=== PATIENT | female | born 1980 | race Hispanic/Latino ===

== ENCOUNTER 2018-01-20 21:42 | Inpatient (IN) | payer OTHER ==
[2018-01-20] MEDS ORDERED: Morphine 4 MG/ML VIAL IV ONE (22:03)
[2018-01-20 22:46] LABS: BASO # 0.1 K/uL (0.0-0.2); EOS # 0.1 K/uL (0.0-0.7); EOS % 0.8 % (0.0-4.0); HEMOGLOBIN 13.6 g/dL (12.0-16.0); LYMPH % 57.5 % (20.0-40.0); MEAN CELL VOLUME 97.6 fl (81.0-99.0); MEAN CORPUSCULAR HEMOGLOBIN 33.2 pg (27.0-31.0); MEAN CORPUSCULAR HGB CONC 34.1 g/dL (33.0-37.0); MEAN PLATELET VOLUME 8.8 fl (7.2-11.7); MONO # 0.5 K/uL (0.0-0.8); MONO % 7.8 % (0.0-10.0); NEUT # 2.3 K/uL (1.8-7.0); NEUT % 32.9 % (50.0-75.0); NRBC % 0.1 % (0.0-0.0); RBC 4.1 Mil/uL (3.80-5.20); RED CELL DISTRIBUTION WIDTH 12.6 % (11.5-14.5); WHITE BLOOD COUNT 6.9 K/uL (4.8-10.8)
[2018-01-20 22:55] LABS: ALB/GLOB RATIO 1.6 (1.0-2.1); ALBUMIN 4.8 g/dL (3.5-5.0); ALT/SGPT 33 U/L (9-52); AST/SGOT 27 U/L (14-36); BLOOD UREA NITROGEN 18 mg/dl (7-17); CALCIUM 10.1 mg/dL (8.4-10.2); GFR NON-AFRICAN AMERICAN > 60
[2018-01-20 22:57] LABS: PROTHROMBIN TIME 11.4 Seconds (9.8-13.1)
[2018-01-20 22:59] LABS: PARTIAL THROMBOPLASTIN TIME 26.4 Seconds (25.6-37.1)
--- NOTE | 2018-01-20 23:02 | ED PDOC ---
Lower Extremity Pain/Injury Time Seen by Provider: 01/20/18 21:45 Chief Complaint (Nursing): Lower Extremity Problem/Injury Chief Complaint (Provider): Lower Extremity Problem/Injury History Per: Patient, EMS History/Exam Limitations: no limitations Onset/Duration Of Symptoms: Sudden Onset Current Symptoms Are (Timing): Still Present Additional Complaint(s): pt here after doing workout in gym and slipping on top of her angled R ankle and bearing weight and falling on R ankle. she suffered immediate pain. unable to ambulate. moaning in pain. Past Medical History Reviewed: Historical Data, Nursing Documentation, Vital Signs Vital Signs: Last Vital Signs Temp 98 F 01/20/18 21:45 Pulse 94 H 01/20/18 21:45 Resp 18 01/20/18 21:45 BP 123/63 01/20/18 21:45 Pulse Ox 100 01/20/18 21:45 - Medical History PMH: Hypothyroidism - Surgical History Surgical History: No Surg Hx - Family History Family History: States: Unknown Family Hx - Social History Current smoker - smoking cessation education provided: No Alcohol: None Drugs: Denies - Home Medications Home Medications: Ambulatory Orders Medication Instructions Recorded Levothyroxine [Synthroid] 100 mcg PO DAILY 01/21/18 - Allergies Allergies/Adverse Reactions: Allergies Allergy/AdvReac Type Severity Reaction Status Date / Time No Known Allergies Allergy Verified 01/20/18 21:45 Review of Systems ROS Statement: Except As Marked, All Systems Reviewed And Found Negative Musculoskeletal: Positive for: Foot Pain (right ankle with swelling) Physical Exam - Reviewed Nursing Documentation Reviewed: Yes Vital Signs Reviewed: Yes - Physical Exam Appears: Positive for: Uncomfortable, In Acute Distress (painful) Skin: Positive for: Normal Color Eye Exam: Positive for: Normal appearance Neck: Positive for: Normal Cardiovascular/Chest: Positive for: Regular Rate, Rhythm Respiratory: Positive for: Normal Breath Sounds Gastrointestinal/Abdominal: Positive for: Normal Exam Extremity: Positive for: Capillary Refill (less than 2 sec), Deformity (obvious to right lateral ankle), Swelling (right lateral and medial aspect of ankle), Other (neurovascularly intact, 2+ DP). Negative for: Normal ROM, Pedal Edema, Calf Tenderness Neurologic/Psych: Positive for: Alert, Oriented. Negative for: Motor/Sensory Deficits - Laboratory Results Result Diagrams: 01/20/18 22:39 01/20/18 22:39 - ECG O2 Sat by Pulse Oximetry: 100 (RA) Pulse Ox Interpretation: Normal Medical Decision Making Medical Decision Making: Initial Impression: Ankle pain s/p fall Initial Plan: * Labs * Morphine 4mg IV * XR ankle (right) * XR tibia/fibula (right) Time: 2209 --Patient declines Morphine when offered by provider. Toradol ordered instead. (states her last period was 4 days ago) podiatry called for likely fracture, waiting on xr Time: 2299 --Patient is signed out to Dr. Andrea, pending podiatry evaluation and dispo. Scribe Attestation: Documented by Reyna Nash, acting as a scribe for Gwen Salinas MD. Provider Scribe Attestation: All medical record entries made by the Scribe were at my direction and personally dictated by me. I have reviewed the chart and agree that the record accurately reflects my personal performance of the history, physical exam, medical decision making, and the department course for this patient. I have also personally directed, reviewed, and agree with the discharge instructions and disposition. Disposition - Clinical Impression Clinical Impression: Fracture of tibia and fibula - Patient ED Disposition Is Patient to be Admitted: Yes - Disposition Disposition: Transfer of Care Disposition Time: 23:00 Condition: FAIR Patient Signed Over To: Tati Andrea
[2018-01-20] MEDS ORDERED: Morphine 4 MG/ML VIAL ONE ×2 (23:41→23:59)
[2018-01-21] MEDS: Morphine 4 MG/ML VIAL IVP ONE ×3 (00:01→01:01)
[2018-01-21] MEDS ORDERED: Propofol 10 mg/ml Inj (20 ML) ONE (00:10)
[2018-01-21] MEDS ORDERED: Propofol 10 mg/ml Inj (20 ML) IV ONE (00:27)
--- NOTE | 2018-01-21 00:44 | ED PDOC ---
- Laboratory Results Result Diagrams: 01/20/18 22:39 01/20/18 22:39 - ECG O2 Sat by Pulse Oximetry: 97 (RA) Pulse Ox Interpretation: Normal Medical Decision Making Medical Decision Makin:00 --Care endorsed to this provider by Dr. Salinas pending podiatry consult. [address] Raúl High patient needs casting and admission for possible OR and observation for NV status. He requests procedural sedation for splinting. Podiatry resident will perform splinting. Scribe Attestation: Documented by Elizabeth Mitchell acting as a scribe for Tati Andrea MD Provider Scribe Attestation: All medical record entries made by the Scribe were at my direction and personally dictated by me. I have reviewed the chart and agree that the record accurately reflects my personal performance of the history, physical exam, medical decision making, and the department course for this patient. I have also personally directed, reviewed, and agree with the discharge instructions and disposition. Disposition Discussed With DrJohn: Alexx Garg Doctor Will See Patient In The: Hospital Counseled Patient/Family Regarding: Studies Performed, Diagnosis, Need For Followup - Clinical Impression Clinical Impression: Fracture of tibia and fibula - POA Present On Arrival: Falls Or Trauma - Disposition Disposition: Hospitalized as Observation Patient Disposition Time: 23:45 Condition: FAIR ED Procedural Sedation - Pre Anesthesia Assessment Chief Complaint: Lower Extremity Problem/Injury Last Known Meal: x 4 hours ago Past Medical History: Medications Reviewed, Allergies Reviewed, Record Review Previous Surgies: Reviewed Family History/Social History: Reviewed - Physical Exam/Review of Systems Vital Signs Reviewed: Yes - Pre-Procedure Airway Assessment History of difficult intubation or surgical airway(i.e trach: No Inability to extend neck:: No Mouth opening less than two finger breadth:: No Diagnosis of sleep apnea:: No Less than three finger breadth to hyoid bone:: No ASA Criteria: 1 - Healthy, normal. 2 - Mild systemic disease (No functional limitations, mildline obesity, DM withot complications, Hypertention). 3 - Severe systemic disease (Some functional limitation, stable angina, morbid obesity, controlled COPD/Asthma/CHF). 4 - Sever systemic disease constant threat to life (Unstable angina, active symptoms of COPD/Asthma, CHF/Hypertension. 5 - Moribund ASA Clarification: ASA I Mallampati (airway): Class I - Intra-Procedure (Medications) Medications Given: Discontinued Medications Ketorolac Tromethamine (Toradol) 30 mg IV ONCE ONE Stop: 01/20/18 22:06 Last Admin: 01/20/18 22:09 Dose: 30 mg eMAR Start Stop Document 01/20/18 22:09 TS (Rec: 01/20/18 22:09 TS [email or web address]) Intravenous Solution Start Date 01/20/18 Start Time 22:07 [facility] Pain Assessment Document 01/20/18 22:09 TS (Rec: 01/20/18 22:09 TS [email or web address]) Pain Reassessment Is this a pain reassessment? No Sleep Is patient sleeping during reassessment? No Presence of Pain Presence of Pain Yes Pain Scale Used [facility] Used Numeric Location Left, Right or Bilateral Right Upper or Lower Lower Pain Location Body Site Leg Re-Assess: [facility] Pain Reassessment Document 01/20/18 22:39 TS (Rec: 01/20/18 23:05 TS [email or web address]) Sleep Is patient sleeping during reassessment? No Pain Reassessment [facility] Pain not relieved and LIP/MD was No notified Morphine Sulfate (Morphine) 4 mg IV ONCE ONE Stop: 01/20/18 22:04 Last Admin: 01/20/18 22:09 Dose: Not Given Non-Admin Reason: Patient Refused Morphine Sulfate (Morphine) 4 mg IVP ONCE ONE Stop: 01/20/18 23:38 Last Admin: 01/20/18 23:41 Dose: 4 mg [facility] Pain Assessment Document 01/20/18 23:41 TS (Rec: 01/20/18 23:42 TS [email or web address]) Pain Reassessment Is this a pain reassessment? Yes Sleep Is patient sleeping during reassessment? No Presence of Pain Presence of Pain Yes Location Left, Right or Bilateral Right Upper or Lower Lower Pain Location Body Site Leg IVP Administration Document 01/20/18 23:41 TS (Rec: 01/20/18 23:42 TS [email or web address]) Charges for Administration # of IVP Administrations 1 Morphine Sulfate (Morphine) 4 mg IVP ONCE ONE Stop: 01/20/18 23:46 Last Admin: 01/21/18 00:40 Dose: Not Given Non-Admin Reason: plan of care change Propofol (Diprivan) 70 mg IV ONCE ONE Stop: 01/21/18 00:28 Last Admin: 01/21/18 00:33 Dose: 70 mg eMAR Start Stop Document 01/21/18 00:33 TS (Rec: 01/21/18 00:34 TS [id number]) Intravenous Solution Start Date 01/21/18 Start Time 00:35 Kevin Agitation Sedation Document 01/21/18 00:33 TS (Rec: 01/21/18 00:34 TS [email or web address]) Kevin Agitation Sedation Scale Kevin Agitation Sedation Scale Score 0 Alert and Calm: Spontaneously pays attention to critical care specialist Physician Pushed Medication: No - Post-Procedure Post Procedure Note: Deep sedation Procedure began at 00:31 and ended at 00:41 Post procedure: Vital signs are in patient's normal range, stable respiratory function. Airway patent. Cardiovascular/hydration status stable. Mental status returned to baseline. Pain control satisfactory. Patient denies nausea, vomiting and complaints. Time Out Process - Time Out Process Patient identification (MR# and name from ID Band): Yes Procedure verified: Yes Consent read aloud and agreed upon: Yes Correct Site/Side marked and visibe to team after prepping: Yes Implants, special equipment and x-rays available: Not Applicable Prophylactic antibiotic given (if applicable): Not Applicable Correct position: Yes Correct Team: Yes List all team members present: Zully All team members are in agreement: Yes
--- NOTE | 2018-01-21 01:03 | CP.PCM.CON ---
History of Present Illness - History of Present Illness History of Present Illness: Consult note for Dr. Metcalf 37 y/o female patient with PMHx of hypothyroidism was seen and evaluated for significant right lower extremity injury in the ED s/p fall at the gym. Patient states she was performing "shuttle runs" and landed on her right foot with her entire body weight over the right leg. Patient was brought over to the ED via ambulance. Patient was seen in the ED at bedside laying on her stomach, and patient reported the pain was 10/10 during evaluation. Patient had refused Morphine prior to evaluation Patient complained of numbness and tingling. PMHx: Hypothyroidism PSHx: wisdom teeth removal, melanoma removal, Allergies: NKDA, denied by patient Review of Systems - Review of Systems All systems: reviewed and no additional remarkable complaints except Review of Systems: denied N/V/F/SOB/CP Past Patient History - Past Social History Smoking Status: Never Smoked - ENDOCRINE/METABOLIC Hx Hypothyroidism: Yes - PSYCHIATRIC Hx Substance Use: No - SURGICAL HISTORY Hx Surgeries: Yes Other/Comment: wisdom teeth - ANESTHESIA Hx Anesthesia: Yes Hx Anesthesia Reactions: No Meds Allergies/Adverse Reactions: Allergies Allergy/AdvReac Type Severity Reaction Status Date / Time No Known Allergies Allergy Verified 01/20/18 21:45 Physical Exam - Constitutional Appears: Well, Non-toxic, In Acute Distress - Head Exam Head Exam: ATRAUMATIC, NORMOCEPHALIC - Extremities Exam Additional comments: Right Lower Extremity Exam VASC: DP and PT pulses 2/4, CFT less than 3 seconds, no change in TG (warm to ORTHO: deformity noted at the distal RLE, patient able to wiggle all digits, unable to assess further due to severe pain and guarding DERM: no open lesions, no skin breaks, ecchymosis noted to the anterior medial aspect at the site of obvious deformity NEURO: epicritic and protective sensations intact, equal when compared to contralateral LLE - Neurological Exam Neurological exam: Alert, Oriented x3 - Psychiatric Exam Psychiatric exam: Anxious, Normal Affect Results - Vital Signs Recent Vital Signs: Last Vital Signs Temp 98 F 01/20/18 21:45 Pulse 66 01/21/18 00:50 Resp 15 01/21/18 00:50 BP 151/75 H 01/21/18 00:50 Pulse Ox 97 01/21/18 01:00 - Labs Result Diagrams: 01/20/18 22:39 01/20/18 22:39 Labs: Laboratory Results - last 24 hr 01/20/18 01/20/18 01/20/18 22:39 22:39 22:39 WBC 6.9 RBC 4.10 Hgb 13.6 Hct 40.0 MCV 97.6 MCH 33.2 H MCHC 34.1 RDW 12.6 Plt Count 315 MPV 8.8 Neut % (Auto) 32.9 L Lymph % (Auto) 57.5 H [place] % (Auto) 7.8 Eos % (Auto) 0.8 Baso % (Auto) 1.0 Neut # (Auto) 2.3 Lymph # (Auto) 4.0 [place] # (Auto) 0.5 Eos # (Auto) 0.1 Baso # (Auto) 0.1 PT 11.4 INR 1.0 APTT 26.4 Sodium 137 Potassium 3.3 L Chloride 101 Carbon Dioxide 19 L Anion Gap 20 BUN 18 H Creatinine 0.8 Est GFR ( Amer) > 60 Est GFR (Non-Af Amer) > 60 Random Glucose 109 H Calcium 10.1 Total Bilirubin 0.5 AST 27 ALT 33 Alkaline Phosphatase 57 Total Protein 7.9 Albumin 4.8 Globulin 3.0 Albumin/Globulin Ratio 1.6 Assessment & Plan - Assessment and Plan (Free Text) Assessment: 37 y/o female patient was seen and evaluated in the ED for distal tib-fib fracture to the right lower extremity Plan: Patient was seen and evaluated in the ED Patient plan was discussed with Dr. Metcalf X-rays were ordered of the right tib-fib and right ankle- final read pending, fracture noted in the distal tib-fib, no break in skin noted CT ordered for further evaluation- final read pending Upon discussion with attending and patient, patient was given conscious sedation Consent was obtained for sedation and patient agreed to procedure with nurse witness Patient was transferred to her back, and RLE was then hung off the side of the bed, with the knee in 90 degrees Patient neuro-vascular status was thoroughly evaluated- and noted to be intact, no signs of compartment syndrome were suspected at this time Posterior splint and U-splints were applied with well-padding and patient tolerated well Patient RLE was then elevated with the ankle above the level of the heart Patient will be admitted, and Dr Metcalf will see patient in the morning Patient to be kept NPO at this time Patient re-evaluated at 3:39 on the peds floor- patient reports she is comfortable at this time, and denies any pain. Patient CFT slightly delayed. Patient DP pulse bounding, patient able to wiggle her toes, and reports neuro status intact when examined
[2018-01-21] MEDS ORDERED: Sodium Chloride 0.9% 1,000 ML IV STA (02:28)
[2018-01-21] MEDS ORDERED: Morphine 4 MG/ML VIAL ONE (02:28)
[2018-01-21] MEDS ORDERED: Iodixanol 320 MG/ML 100 ML BOTTLE IV ONE (05:25)
[2018-01-21] MEDS ORDERED: Sodium Chloride 0.9% 50 ML IV ONE (05:25)
--- NOTE | 2018-01-21 09:37 | RAD ---
Date of service: 01/20/2018 PROCEDURE: Right Ankle Radiographs. HISTORY: r ankle pain sp fall COMPARISON: None available. FINDINGS: BONES: A spiral fracture of the distal tibial diaphysis with 9 mm separation diastases of the distal fracture fragment ends is noted on the lateral view. No marked angulation deformity seen. A fibular spiral fracture nondisplaced is also noted at the diaphyseal metaphyseal junction. A well corticated 7 to 8 mm ossification projects over the inferior distal fibula-an developmental accessory ossificationscenter versus an old osseous avulsion are favored considerations. JOINTS: No significant appearing arthritis seen.. Disruption of the ankle mortise is suspect the lateral ankle mortise is asymmetrically increased in its superior inferior spacing compared to the medial aspect. The tibial oblique fracture lines which have some comminution extend down towards the syndesmotic ligamentous region. Talar dome intact grossly on this single frontal view of it SOFT TISSUES: Not significantly swollen OTHER FINDINGS: None. IMPRESSION: Multiple fractures tibia and fibula as detailed above. The distal tibial fracture ends are at least 9 mm. No florencia dislocation. However the lateral ankle mortise is believes disrupted as detailed above.
--- NOTE | 2018-01-21 09:39 | RAD ---
Date of service: 01/20/2018 PROCEDURE: Radiographs of the right tibia and fibula. HISTORY: r ankle pain and swellign sp fall COMPARISON: None available TECHNIQUE: Frontal and lateral views obtained. FINDINGS: BONES: The extensive mostly spiral type fractures of the distal tibial diaphysis and distal fibular diaphysis and metaphysis are renoted. The tibial fracture ends are distally approximately 9 mm. No angulation deformity is appreciated. JOINT SPACES: Unremarkable. OTHER FINDINGS: None. IMPRESSION: Distal tibial and fibular fractures as above.
--- NOTE | 2018-01-21 10:10 | CP.PCM.HP ---
History of Present Illness - History of Present Illness History of Present Illness: pt admitted for R tib/fib fx after runining at gym yesterday. fell ontop her own body weight. had reduction in ER w/ splint in place. distal pms intact. cap refill brisk. case d/c w/ ortho-elgazar. Present on Admission - Present on Admission Any Indicators Present on Admission: No Review of Systems - Musculoskeletal Musculoskeletal: As Per HPI Past Patient History - Past Medical History & Family History Past Medical History?: Yes - Past Social History Smoking Status: Never Smoked - CARDIAC Hx Cardiac Disorders: No - PULMONARY Hx Respiratory Disorders: No - NEUROLOGICAL Hx Neurological Disorder: No - HEENT Hx HEENT Problems: No - RENAL Hx Chronic Kidney Disease: No - ENDOCRINE/METABOLIC Hx Hypothyroidism: Yes - HEMATOLOGICAL/ONCOLOGICAL Hx Blood Disorders: No Hx AIDS: No Hx Human Immunodeficiency Virus (HIV): No - INTEGUMENTARY Hx Dermatological Problems: Yes (malignant melanoma) - MUSCULOSKELETAL/RHEUMATOLOGICAL Hx Musculoskeletal Disorders: No Hx Falls: No - GASTROINTESTINAL Hx Gastrointestinal Disorders: No - GENITOURINARY/GYNECOLOGICAL Hx Genitourinary Disorders: No - PSYCHIATRIC Hx Substance Use: No - SURGICAL HISTORY Hx Surgeries: Yes Other/Comment: wisdom teeth - ANESTHESIA Hx Anesthesia: Yes Hx Anesthesia Reactions: No Meds Allergies/Adverse Reactions: Allergies Allergy/AdvReac Type Severity Reaction Status Date / Time No Known Allergies Allergy Verified 01/20/18 21:45 Physical Exam - Constitutional Appears: Well, Non-toxic, No Acute Distress - Head Exam Head Exam: ATRAUMATIC, NORMAL INSPECTION, NORMOCEPHALIC - Eye Exam Eye Exam: EOMI, Normal appearance, PERRL Pupil Exam: NORMAL ACCOMODATION, PERRL - ENT Exam ENT Exam: Mucous Membranes Moist, Normal Exam - Neck Exam Neck exam: Positive for: Normal Inspection - Respiratory Exam Respiratory Exam: Clear to Auscultation Bilateral, NORMAL BREATHING PATTERN - Cardiovascular Exam Cardiovascular Exam: REGULAR RHYTHM, RRR, +S1, +S2 - GI/Abdominal Exam GI & Abdominal Exam: Normal Bowel Sounds, Soft. absent: Tenderness - Extremities Exam Extremities exam: Positive for: full ROM, normal capillary refill, normal inspection, pedal pulses present Additional comments: rle distal pms intact, cap refill brisk - Back Exam Back exam: NORMAL INSPECTION - Neurological Exam Neurological exam: Abnormal Gait, Alert, CN II-XII Intact, Oriented x3, Reflexes Normal - Psychiatric Exam Psychiatric exam: Normal Affect, Normal Mood - Skin Skin Exam: Dry, Intact, Normal Color, Warm Results - Vital Signs Recent Vital Signs: Last Vital Signs Temp 97.9 F 01/21/18 08:35 Pulse 58 L 01/21/18 08:35 Resp 18 01/21/18 08:35 BP 126/59 L 01/21/18 08:35 Pulse Ox 100 01/21/18 08:35 - Labs Result Diagrams: 01/20/18 22:39 01/20/18 22:39 Labs: Laboratory Results - last 24 hr 01/20/18 01/20/18 01/20/18 22:39 22:39 22:39 WBC 6.9 RBC 4.10 Hgb 13.6 Hct 40.0 MCV 97.6 MCH 33.2 H MCHC 34.1 RDW 12.6 Plt Count 315 MPV 8.8 Neut % (Auto) 32.9 L Lymph % (Auto) 57.5 H [place] % (Auto) 7.8 Eos % (Auto) 0.8 Baso % (Auto) 1.0 Neut # (Auto) 2.3 Lymph # (Auto) 4.0 [place] # (Auto) 0.5 Eos # (Auto) 0.1 Baso # (Auto) 0.1 PT 11.4 INR 1.0 APTT 26.4 Sodium 137 Potassium 3.3 L Chloride 101 Carbon Dioxide 19 L Anion Gap 20 BUN 18 H Creatinine 0.8 Est GFR ( Amer) > 60 Est GFR (Non-Af Amer) > 60 Random Glucose 109 H Calcium 10.1 Total Bilirubin 0.5 AST 27 ALT 33 Alkaline Phosphatase 57 Total Creatine Kinase Total Protein 7.9 Albumin 4.8 Globulin 3.0 Albumin/Globulin Ratio 1.6 01/21/18 06:30 WBC RBC Hgb Hct MCV MCH MCHC RDW Plt Count MPV Neut % (Auto) Lymph % (Auto) [place] % (Auto) Eos % (Auto) Baso % (Auto) Neut # (Auto) Lymph # (Auto) [place] # (Auto) Eos # (Auto) Baso # (Auto) PT INR APTT Sodium Potassium Chloride Carbon Dioxide Anion Gap BUN Creatinine Est GFR ( Amer) Est GFR (Non-Af Amer) Random Glucose Calcium Total Bilirubin AST ALT Alkaline Phosphatase Total Creatine Kinase 377 H Total Protein Albumin Globulin Albumin/Globulin Ratio Assessment & Plan (1) DVT prophylaxis Assessment and Plan: scd adn ae hose hold anticoag for surgery Status: Acute (2) Fracture of tibia and fibula Assessment and Plan: pain control elevated/ice ortho will optimize for or friday am. Status: Acute (3) Hypothyroid Assessment and Plan: synthroid Status: Acute Decision To Admit - Pt Status Changed To: Hospital Disposition Of: Inpatient - Admit Certification Admit to Inpatient:: After my assessment, the patient will require hospitalization for at least two midnights. This is because of the severity of symptoms shown, intensity of services needed, and/or the medical risk in this patient being treated as an outpatient. - . Bed Request Type: Med/Surg Admitting Physician: Andrei Escalante
--- NOTE | 2018-01-21 10:44 | CT ---
Date of service: 01/21/2018 PROCEDURE: CT of the right lower leg HISTORY: right distal tib fib COMPARISON: Right ankle and right tib fib x-rays. TECHNIQUE: Contiguous axial images of the left hip were obtained. Coronal and sagittal reformats were generated. Radiation dose: Total exam DLP = 413.71 mGy-cm. This CT exam was performed using one or more of the following dose reduction techniques: Automated exposure control, adjustment of the mA and/or kV according to patient size, and/or use of iterative reconstruction technique. FINDINGS: BONES: The prior tibial fracture with predominantly a spiral component shows evidence of comminution elsewhere-a posterior and medial distal tibial metaphyseal to epiphyseal fracture line ) involving the tibial plafond are noted. One distal tibial metaphyseal to epiphyseal fracture line is seen extending to the tibial talar joint on coronal series 503, image 55 and sagittal series 500, image 78. This fracture line is approximately 2.4 mm. Another tibial vertical fracture line is seen posterior to that on sagittal series 500, image 82 this appears represent the fracture fragment at least on the sagittal reconstruction measuring 11 x 5 mm in size. Additional nondisplaced trabecular microfracture is also seen involving the medial malleolus series 500, image 89 And extensive mostly spiral type fracture involving the diaphysis and metaphysis which has been referenced before is also present this a fracture fragment is 5 mm on axial series 3, image 52 up to 6 mm on axial series 3, image 59. The distal fibular fracture ends are at least 3 to 4 mm on axial series 3, image 73 there are few flake ossific fragments projecting near the tibial fibular articulation coronal series 503, image 66. The 6 mm well corticated ossification inferior to the fibula is compatible with either an old osseous avulsion over a prominent accessory ossifications center. No acute osseous avulsion here seen. No talar dome fractures appreciated. Some minimal [place]'s tendon insetional enesthesophyte. Is noted. LEFT HIP JOINT: . No dislocation. No degenerative changes. Fractures above extend into the tibiotalar joint SOFT TISSUES: Swelling. IMPRESSION: Multiple fractures tibial and fibular. Essentially a trimalleolar fracture. Multiple comminuted tibial fractures with displacement. These tibial fractures affect the medial and posterior malleolus with the tibiotalar joint extension. The greatest fracture fragment separation involves the more proximal spiral tibial fracture component. Additional fibular spiral fracture fragments with tiny chip flake osseous avulsions also noted. Some of these are in close proximity with the tibial fibular joint Intact talar dome. Concordant results (preliminary interpretation) provided by grupo.
[2018-01-21] MEDS: Levothyroxine 100 MCG TAB PO SCH (10:46)
--- NOTE | 2018-01-21 12:42 | RAD ---
Date of service: 01/21/2018 PROCEDURE: Right Foot Radiographs. HISTORY: s/p splint COMPARISON: Right ankle right leg CT right lower extremity FINDINGS: BONES: Multiple distal tibial and fibular fractures are present and detailed on the prior CT exam most thoroughly. JOINTS: Fractures with intra-articular extension SOFT TISSUES: Normal. OTHER FINDINGS: Splinter casting. IMPRESSION: Known multiple comminuted fractures involving the distal tibia and fibula with tibiotalar joint extension-the extent the mapping of the fractures and their displacement are most detailed on the CT right lower extremity study
--- NOTE | 2018-01-21 12:43 | RAD ---
Date of service: 01/21/2018 PROCEDURE: Right Ankle Radiographs. HISTORY: s/p splint COMPARISON: Right tib fib right ankle, right CT lower extremity. FINDINGS: BONES: Multiple fractures spiral comminuted are present comminuted are most pronounced in the distal tibia fracture ends are and detailed on the CT report. Fractures have tibiotalar joint extension. Examination made through casting. JOINTS: Normal. No osteoarthritis. Ankle mortise maintained. Talar dome intact SOFT TISSUES: Normal. OTHER FINDINGS: None. IMPRESSION: Multiple fractures tibia and fibula most optimally detailed on the CT report
--- NOTE | 2018-01-21 12:49 | RAD ---
Date of service: 01/21/2018 PROCEDURE: Radiographs of the right tibia and fibula. HISTORY: s/p splint COMPARISON: None available TECHNIQUE: Frontal and lateral views obtained. FINDINGS: BONES: The multiple fractures mostly spiral type of the distal tibia and fibula are renoted the tibial fractures have a comminuted component associated with them. Please note the same-day CT report for more detailed description and fracture mapping findings. Intra-articular extension is suggested. JOINT SPACES: Unremarkable. OTHER FINDINGS: Malleolar soft tissue swelling. IMPRESSION: Multiple fractures-tibia and fibula both sites have displacements. Fracture details mapping best referenced on same-day CT report.
--- NOTE | 2018-01-21 12:49 | CT ---
Date of service: 01/21/2018 PROCEDURE: CT ANGIOGRAM RIGHT LOWER EXTREMITY HISTORY: RLE fracture COMPARISON: TECHNIQUE: 2.5 millimeter contiguous axial sections along with sagittal coronal reformations obtained from the proximal tibia through the foot. Contrast: 95 cubic centimeters Omnipaque 320 Radiation: 128.24 mGy-cm FINDINGS: The visualized segment of posterior tibial artery and peroneal artery are patent. The proximal and mid anterior tibial artery are patent. The origin of all tibial vessels are not included in the study. At the level of the ankle fracture, the anterior tibial artery courses behind the fracture and is not clearly visualized. The dorsalis pedis artery is seen and appears normal. As described previously, there is a comminuted fracture of the distal tibia and fibula. IMPRESSION: CT angiogram shows an intact peroneal and posterior tibial artery. The anterior tibial is intact in the visualized proximal and mid segments. However, the level of the fracture, the anterior tibial artery courses behind the fracture and visualization becomes limited. Possible arterial disruption at this level.
[2018-01-21] MEDS ORDERED: diaZEpam 10 mg/2 ml Inj IM PRN (18:25)
[2018-01-21] MEDS ORDERED: HYDROmorphone 1 mg/ml ISec IVP PRN (18:29)
--- NOTE | 2018-01-21 22:40 | CP.PCM.CON ---
History of Present Illness - History of Present Illness History of Present Illness: 37-year-old female with PMH = hypothyroidism presented to the ER at [facility] in the late evening 01/20/18 with right leg/ankle deformity and pain for less than one hour. She states that she was the gym exercising, performing shuttle runs when she slipped landing with her entire body weight on right ankle/leg. She noticed immediate deformity at the distal leg/ankle with inability to weight bear on right lower extremity. she denied seeing the bone/open fracture. She denied numbness and tingling or any other neurovascular signs. She was brought to the ER via EMS. After evaluation by ER staff and review of imaging, she was diagnosed with distal tibia and fibula displaced comminuted fractures. Orthop edic consultation was placed and initial evaluation was done by podiatry resident service. x-rays in the ER 01/20/18: R ankle/tib-fib: + Displaced, oblique, comminuted distal tibia shaft fracture with extension to articular surface/pilon with displaced posterior malleolus large fragment/fracture in the sagittal plane. + Displaced long oblique distal fibula/lateral malleolus fracture CT R ankle done in the ER 01/20/18: + Displaced, oblique, comminuted distal tibia shaft fracture with extension to articular surface with displaced posterior malleolus large fragment/fracture in the sagittal plane. + non-displaced medial mal fx, + Displaced long oblique distal fibula/lateral malleolus fracture CT angiogram R lower extremity done 01/21/18: Initial read by on-call offsite radiologist = no vascular injury Repeat read by in-house radiologist, Dr. Killian (not communicated with primary team or orthopedic consulting team until 7 PM)= intact peroneal artery, intact posterior tibial artery Anterior tibial artery with likely injury, caught within distal tibia shaft fracture with no runoff beyond level of fracture. Review of documentation by nursing staff, ER staff, Podiatry team shows that the DP and PT pulses have been palpated and documented throughout admission since arriving to ER. There is no documented deficit in either DP or PT pulse since Admission through ER. Past Patient History - Past Medical History & Family History Past Medical History?: Yes - Past Social History Smoking Status: Never Smoked - CARDIAC Hx Cardiac Disorders: No - PULMONARY Hx Respiratory Disorders: No - NEUROLOGICAL Hx Neurological Disorder: No - HEENT Hx HEENT Problems: No - RENAL Hx Chronic Kidney Disease: No - ENDOCRINE/METABOLIC Hx Hypothyroidism: Yes - HEMATOLOGICAL/ONCOLOGICAL Hx Blood Disorders: No Hx AIDS: No Hx Human Immunodeficiency Virus (HIV): No - INTEGUMENTARY Hx Dermatological Problems: Yes (malignant melanoma) - MUSCULOSKELETAL/RHEUMATOLOGICAL Hx Musculoskeletal Disorders: No Hx Falls: No - GASTROINTESTINAL Hx Gastrointestinal Disorders: No - GENITOURINARY/GYNECOLOGICAL Hx Genitourinary Disorders: No - PSYCHIATRIC Hx Substance Use: No - SURGICAL HISTORY Hx Surgeries: Yes Other/Comment: wisdom teeth - ANESTHESIA Hx Anesthesia: Yes Hx Anesthesia Reactions: No Meds Allergies/Adverse Reactions: Allergies Allergy/AdvReac Type Severity Reaction Status Date / Time No Known Allergies Allergy Verified 01/20/18 21:45 - Medications Medications: Current Medications Diazepam (Valium) 5 mg IM ONCE PRN PRN Reason: Pain, severe (8-10) Diazepam (Valium) 5 mg PO Q6 PRN PRN Reason: Pain, severe (8-10) Last Admin: 01/21/18 21:29 Dose: 5 mg Hydromorphone HCl (Dilaudid) 1 mg IVP Q4 PRN PRN Reason: Pain, severe (8-10) Ketorolac Tromethamine (Toradol) 30 mg IVP Q6 PRN PRN Reason: Pain, moderate (4-7) Last Admin: 01/21/18 13:41 Dose: 30 mg Levothyroxine Sodium (Synthroid) 100 mcg PO DAILY@0630 JAVY Last Admin: 01/21/18 10:46 Dose: 100 mcg Morphine Sulfate (Morphine) 4 mg IVP Q4 PRN PRN Reason: Pain, severe (8-10) Last Admin: 01/21/18 18:32 Dose: 4 mg Physical Exam - Extremities Exam Additional comments: right lower extremity: + + + Tenderness to palpation from mid arceo to medial and lateral ankle, skin intact, no visible tenting or pressure on skin from underlying fracture. + Significant swelling at level of fracture and distal. - Erythema/warmth, full range of motion at hip without pain. No tenderness to palp at hip/thigh/knee/foot/toes +5/5 motor strength hip flexion/extension, toes up and down Sensory intact L2-S1, deep peroneal nerve/superficial peroneal nerve/tibial nerve, lateral and medial aspect of all toes 2+ dorsalis pedis pulse and 2+ posterior tibial pulse Brisk cap refill toes Calves soft and nontender bilaterally Left lower extremity: - Tenderness to palpation - swelling/warmth/erythema, skin intact, full range of motion at all joints without pain +5/5 motor strength hip flexion/extension, knee flexion/extension, ankle dorsiflexion/plantarfle,toes up and down Sensory intact L2-S1, deep peroneal nerve/superficial peroneal nerve/tibial nerve, lateral and medial aspect of all toes 2+ dorsalis pedis pulse and 2+ posterior tibial pulse Brisk cap refill toes Results - Vital Signs Recent Vital Signs: Last Vital Signs Temp 98.7 F 01/21/18 21:00 Pulse 68 01/21/18 21:00 Resp 20 01/21/18 21:00 BP 129/72 01/21/18 21:00 Pulse Ox 100 01/21/18 21:00 - Labs Result Diagrams: 01/27/18 05:55 01/27/18 05:55 Labs: Laboratory Results - last 24 hr 01/20/18 01/20/18 01/20/18 22:39 22:39 22:39 WBC 6.9 RBC 4.10 Hgb 13.6 Hct 40.0 MCV 97.6 MCH 33.2 H MCHC 34.1 RDW 12.6 Plt Count 315 MPV 8.8 Neut % (Auto) 32.9 L Lymph % (Auto) 57.5 H Rooks % (Auto) 7.8 Eos % (Auto) 0.8 Baso % (Auto) 1.0 Neut # (Auto) 2.3 Lymph # (Auto) 4.0 Rooks # (Auto) 0.5 Eos # (Auto) 0.1 Baso # (Auto) 0.1 PT 11.4 INR 1.0 APTT 26.4 Sodium 137 Potassium 3.3 L Chloride 101 Carbon Dioxide 19 L Anion Gap 20 BUN 18 H Creatinine 0.8 Est GFR ( Amer) > 60 Est GFR (Non-Af Amer) > 60 Random Glucose 109 H Calcium 10.1 Total Bilirubin 0.5 AST 27 ALT 33 Alkaline Phosphatase 57 Total Creatine Kinase Total Protein 7.9 Albumin 4.8 Globulin 3.0 Albumin/Globulin Ratio 1.6 01/21/18 06:30 WBC RBC Hgb Hct MCV MCH MCHC RDW Plt Count MPV Neut % (Auto) Lymph % (Auto) Rooks % (Auto) Eos % (Auto) Baso % (Auto) Neut # (Auto) Lymph # (Auto) Rooks # (Auto) Eos # (Auto) Baso # (Auto) PT INR APTT Sodium Potassium Chloride Carbon Dioxide Anion Gap BUN Creatinine Est GFR ( Amer) Est GFR (Non-Af Amer) Random Glucose Calcium Total Bilirubin AST ALT Alkaline Phosphatase Total Creatine Kinase 377 H Total Protein Albumin Globulin Albumin/Globulin Ratio Assessment & Plan (1) Fracture of tibia and fibula Assessment and Plan: 37-year-old female status post fall landing on R leg/ankle 01/20/18 with pain and deformity Diagnosis = R leg/ankle: #1 displaced oblique distal tibia shaft fracture #2 displaced large fragment posterior malleolus fracture (sagittal split comprising 40% of articular surface) #3 displaced oblique distal fibula/lateral malleolus fracture #4 possible anterior tibial artery injury (at the level of the distal tibia fracture) #5 non-displaced medial mal fx Plan: R leg/ankle: -Clinically and confirmed imaging, displaced multiple fractures tibia and fibula -Underwent closed reduction and placement short leg splint in the ER by podiatry team on initial presentation -Splint was redone today bedside as it was necessary to evaluate soft tissue at the level of the fracture and assess detailed neurovascular exam Splint was redone as a posterior and U long-leg splint, well-padded, repeat closed reduction -Strict nonweightbearing right lower extremity -Ice and elevation above the level of her heart -Indicated for surgical intervention in the form of: #1 distal tibia shaft fracture = open reduction and internal fixation with in tramedullary nail versus low-profile distal tibia medial locking plate #2 posterior malleolus fracture = open reduction and internal fixation with cannulated headless screws #3 lateral malleolus fracture = open reduction and internal fixation with multiple lag screws and locking plate distal fibula #4 fixation medial mal fracture #5 attempted salvage of anterior tibial artery with intraop angio done by vascular #6 plastics closure with placement of alloderm graft over HW medial and lateral, VAC assisted closure #7 all related indicated procedures including possible syndesmotic fixation if indicated -There are many complexities to this patient's treatment require consideration: #1 she has very thin soft tissue along distal medial tibia and medial malleolus as well as lateral malleolus. This is a concern for distal medial tibia plating and lateral malleolus plating. To address complex soft tissue closure over orthopedic hardware/ plate and screws at medial and lateral malleoli, I have reached out to plastic surgery consult, Dr. Flynn. She has agreed to participate in the care of this patient and will be present at the end of the procedure to perform complex plastics wound closure, most likely involving AlloDerm placed between the patient's skin and medial and lateral plates and VAC assisted wound closure. The other soft tissue sparing approach to treatment of the distal tibia shaft fracture would be to place intramedullary nail as internal fixation. This may not be feasible with this fracture pattern but it is a consideration in our surgical plan, otherwise distal tibia low contour locking medial plate will be used. #2 there is a anterior tibial artery injury. I have consulted vascular surgery, Dr. Dieter Rich. Initial recommendation was to proceed with open reduction internal fixation of this complex injury/fracture as we normally would. He has agreed to see the patient preop and reevaluate the patient at the end of the procedure prior to closure and potentially perform angiogram to confirm that there was no injury to the other 2 distal arteries. If there is a need for surgical vascular surgery intervention, it will be carried out prior to extubation/leaving OR. We will attempt to salvage the anterior tibial artery and remove it from harms way from within the fracture tibial shaft Dr. Garcias also recommends repeat CT angiogram tomorrow evening to reevaluate anterior tibial artery for runoff. -On evaluation today, the splint initially placed was removed, the soft tissue adjacent to the level of the tibial shaft fx/ lateral mal fx/ medial mal was pina y swollen, not safe for this type of complex surgery today. Likely soft tissue closure issues with this much swelling right now. will need aggressive elevation and ice over the next 36-48 hrs to allow for soft tissue swelling to decrease and become acceptable for surgery Friday, otherwise will have to consider external fixator as initial temporary treatment. -the risks, benefits, alternatives to the surgery have been discussed at with the patient with the risks including but not limited to: infection, neurovascular damage, loss of function, loss of limb, malunion, nonunion, need for further surgery, failure of hardware, development of chronic pain and disability, development of blood clots including DVT and PE, inability to return to preinjury level of activity and sports, anesthesia reactions including . -placed on elective OR schedule first case Friday01/23/18 -I will also have another orthopedic attending as certified surgical first assistant, Dr. Gates, for this complex procedure -preoperative labs, medical evaluation, EKG, chest x-ray -Will need medical clearance for surgery -Pain control -hold DVT prophylaxis for the surgery unless medically contraindicated -Recommend Valium for lower extremity spasm -Will follow -please contact me with any questions, updates, concerns at [phone] thank you for allowing me to contribute to the care of your patient. Marisol Metcalf MD Orthopedic Surgery Status: Acute
[2018-01-22] MEDS: Levothyroxine 100 MCG TAB PO SCH (06:48)
--- NOTE | 2018-01-22 08:58 | CP.PCM.PN ---
Subjective - Date & Time of Evaluation Date of Evaluation: 01/22/18 Time of Evaluation: 08:57 - Subjective Subjective: pt doing well. comfortable in bed. no f/c, n/v/d. for or tomorrow. for mri today. Objective - Vital Signs/Intake and Output Vital Signs (last 24 hours): Temp Pulse Resp BP Pulse Ox 98.5 F 65 20 126/73 100 01/22/18 05:10 01/22/18 05:10 01/22/18 05:10 01/22/18 05:10 01/22/18 07:59 Intake and Output: 01/22/18 01/22/18 06:59 18:59 Intake Total 1330 Output Total 1000 Balance 330 - Medications Medications: Current Medications Diazepam (Valium) 5 mg IM ONCE PRN PRN Reason: Pain, severe (8-10) Diazepam (Valium) 5 mg PO Q6 PRN PRN Reason: Pain, severe (8-10) Last Admin: 01/22/18 04:14 Dose: 5 mg Hydromorphone HCl (Dilaudid) 1.5 mg IVP Q4 PRN PRN Reason: Pain, severe (8-10) Ketorolac Tromethamine (Toradol) 30 mg IVP Q6 PRN PRN Reason: Pain, moderate (4-7) Last Admin: 01/21/18 13:41 Dose: 30 mg Levothyroxine Sodium (Synthroid) 100 mcg PO DAILY@0630 JAVY Last Admin: 01/22/18 06:48 Dose: 100 mcg Morphine Sulfate (Morphine) 4 mg IVP Q4 PRN PRN Reason: Pain, severe (8-10) Last Admin: 01/22/18 03:47 Dose: 4 mg - Labs Labs: 01/20/18 22:39 01/20/18 22:39 PT 11.4 Seconds (9.8-13.1) 01/20/18 22:39 INR 1.0 01/20/18 22:39 APTT 26.4 Seconds (25.6-37.1) 01/20/18 22:39 - Constitutional Appears: Well, Non-toxic, In Acute Distress - Head Exam Head Exam: ATRAUMATIC, NORMAL INSPECTION, NORMOCEPHALIC - Eye Exam Eye Exam: EOMI, Normal appearance, PERRL Pupil Exam: NORMAL ACCOMODATION, PERRL - ENT Exam ENT Exam: Mucous Membranes Moist, Normal Exam - Neck Exam Neck Exam: Full ROM, Normal Inspection. absent: Lymphadenopathy - Respiratory Exam Respiratory Exam: Clear to Ausculation Bilateral, NORMAL BREATHING PATTERN - Cardiovascular Exam Cardiovascular Exam: REGULAR RHYTHM, RRR, +S1, +S2. absent: Murmur - GI/Abdominal Exam GI & Abdominal Exam: Soft, Normal Bowel Sounds. absent: Tenderness - Extremities Exam Extremities Exam: Full ROM, Normal Capillary Refill, Normal Inspection. absent: Joint Swelling, Pedal Edema Additional comments: distal pms intact, ?? swelling of toes noted. - Back Exam Back Exam: NORMAL INSPECTION - Neurological Exam Neurological Exam: Alert, Awake, CN II-XII Intact, Normal Gait, Oriented x3 - Psychiatric Exam Psychiatric exam: Normal Affect, Normal Mood - Skin Skin Exam: Dry, Intact, Normal Color, Warm Assessment and Plan (1) DVT prophylaxis Status: Acute (2) Fracture of tibia and fibula Status: Acute (3) Hypothyroid Status: Acute - Assessment and Plan (Free Text) Assessment: (1) DVT prophylaxis Assessment and Plan: scd adn ae hose hold anticoag for surgery Status: Acute (2) Fracture of tibia and fibula Assessment and Plan: pain control elevated/ice ortho will optimize for or friday am. mri today Status: Acute (3) Hypothyroid Assessment and Plan: synthroid Status: Acute serm hcg negative
--- NOTE | 2018-01-22 09:35 | CP.PCM.PN ---
Subjective - Date & Time of Evaluation Date of Evaluation: 01/22/18 Time of Evaluation: 08:00 - Subjective Subjective: Patient seen and examined at bedside comfortable. Pain is well controlled with IV medications. Leg elevated with pillows. Upon changing positions, developed severe pain. No acute events overnight. Denies CP/SOB/fever/POSADAS. Objective - Vital Signs/Intake and Output Vital Signs (last 24 hours): Temp Pulse Resp BP Pulse Ox 98.5 F 65 20 126/73 100 01/22/18 05:10 01/22/18 05:10 01/22/18 05:10 01/22/18 05:10 01/22/18 07:59 Intake and Output: 01/22/18 01/22/18 06:59 18:59 Intake Total 1330 Output Total 1000 Balance 330 - Medications Medications: Current Medications Diazepam (Valium) 5 mg IM ONCE PRN PRN Reason: Pain, severe (8-10) Diazepam (Valium) 5 mg PO Q6 PRN PRN Reason: Pain, severe (8-10) Last Admin: 01/22/18 04:14 Dose: 5 mg Hydromorphone HCl (Dilaudid) 1.5 mg IVP Q4 PRN PRN Reason: Pain, severe (8-10) Ketorolac Tromethamine (Toradol) 30 mg IVP Q6 PRN PRN Reason: Pain, moderate (4-7) Last Admin: 01/21/18 13:41 Dose: 30 mg Levothyroxine Sodium (Synthroid) 100 mcg PO DAILY@0630 JAVY Last Admin: 01/22/18 06:48 Dose: 100 mcg Morphine Sulfate (Morphine) 4 mg IVP Q4 PRN PRN Reason: Pain, severe (8-10) Last Admin: 01/22/18 03:47 Dose: 4 mg - Labs Labs: 01/20/18 22:39 01/20/18 22:39 PT 11.4 Seconds (9.8-13.1) 01/20/18 22:39 INR 1.0 01/20/18 22:39 APTT 26.4 Seconds (25.6-37.1) 01/20/18 22:39 - Extremities Exam Additional comments: RLE: Long leg splint CDI anterior arceo skin intact sensation intact SP/DP/TN motor intact EHL/FHL Palpable DP pulse, dopplerable PT pulse Assessment and Plan (1) Fracture of tibia and fibula Assessment & Plan: -OR tomorrow for R tibia/fibula fx ORIF -NPO pMN -pain meds adjusted -bedrest -elevate RLE with trapeze -MRI RLE to evaluate for ligament injury -repeat CT angio RLE to reevaluate anterior tibial artery injury post splint, although distal pulses identified -awaiting vascular consult -above d/w Dr. Metcalf in agreement Status: Acute
[2018-01-22] MEDS ORDERED: Oxycodone/Acetaminophen 5/325 mg Tab PO PRN (15:00)
[2018-01-22] MEDS: Oxycodone/Acetaminophen 5/325 mg Tab PO PRN ×3 (15:22→23:55)
--- NOTE | 2018-01-22 17:55 | CP.PCM.PCO ---
Physician Communication Note - Physician Communication Note Physician Communication Note: Patient with right tib fib fx in need of ORIF Assessment & Plan - Assessment and Plan (Free Text) Assessment: Patient is a 37-year-old female with a tib/fib fracture sustained late evening 01/20/18 when she slipped and fell landing on her right ankle with her entire body weight. She is being taken to the OR tomorrow by Dr. Metcalf for ORIF and I was asked to hope with the closure of the wound because of the location and high probability of wound complications. Past Med Hsitory: hypothyroidism, malignant melanoma Social Hx: No smoking Allergies: None Meds: Diazepam (Valium) 5 mg IM ONCE PRN PRN Reason: Pain, severe (8-10) Diazepam (Valium) 5 mg PO Q6 PRN PRN Reason: Pain, severe (8-10) Last Admin: 01/21/18 21:29 Dose: 5 mg Hydromorphone HCl (Dilaudid) 1 mg IVP Q4 PRN PRN Reason: Pain, severe (8-10) Ketorolac Tromethamine (Toradol) 30 mg IVP Q6 PRN PRN Reason: Pain, moderate (4-7) Last Admin: 01/21/18 13:41 Dose: 30 mg Levothyroxine Sodium (Synthroid) 100 mcg PO DAILY@0630 JAVY Last Admin: 01/21/18 10:46 Dose: 100 mcg Morphine Sulfate (Morphine) 4 mg IVP Q4 PRN PRN Reason: Pain, severe (8-10) Last Admin: 01/21/18 18:32 Dose: 4 mg Radiographys: x-rays in the ER 01/20/18: R ankle/tib-fib: + Displaced, oblique, comminuted distal tibia shaft fracture with extension to articular surface/pilon with displaced posterior malleolus large fragment/fracture in the sagittal plane. + Displaced long oblique distal fibula/lateral malleolus fracture CT R ankle done in the ER 01/20/18: + Displaced, oblique, comminuted distal tibia shaft fracture with extension to articular surface/pilon with displaced posterior malleolus large fragment/fracture in the sagittal plane. + Displaced long oblique distal fibula/lateral malleolus fracture CT angiogram R lower extremity done 01/21/18: Initial read by on-call offsite radiologist = no vascular injury Repeat read by in-house radiologist, Dr. Killian (not communicated with primary team or orthopedic consulting team until 7 PM)= intact peroneal artery, intact posterior tibial artery. Anterior tibial artery with likely injury, caught within distal tibia shaft fracture with no runoff beyond level of fracture. Physical Exam right lower extremity: Tender, swollen. skin intact, no visible tenting or pressure on skin from underlying fracture. + Significant swelling at level of fracture and distal. No erythema, no rubor, full range of motion at hip without pain. No tenderness to palp at hip/thigh/knee/foot/toes +5/5 motor strength hip flexion/extension, toes up and down Sensory intact L2-S1, deep peroneal nerve/superficial peroneal nerve/tibial nerve, lateral and medial aspect of all toes 2+ dorsalis pedis pulse and 2+ posterior tibial pulse Brisk cap refill toes Calves soft and nontender bilaterally. Plan: Assessment and Plan: 37-year-old female status post fall landing on R leg/ankle 01/20/18 with tib/fib fracture. Will come in tomorrow to close the incisions once orthopedics has completed the fixation. Will plan for wide undermining, Alloderm placement, complex closure and application of VAC. Patient will be seen prior to the OR tomorrow morning to obtain consent.
[2018-01-22] MEDS ORDERED: Sodium Chloride 0.9% 50 ML IV ONE (18:05)
[2018-01-22] MEDS ORDERED: Iodixanol 320 MG/ML 100 ML BOTTLE IV ONE (18:05)
[2018-01-23 06:43] LABS: BASO # 0.1 K/uL (0.0-0.2); BASO % 0.8 % (0.0-2.0); EOS # 0.2 K/uL (0.0-0.7); EOS % 2.7 % (0.0-4.0); HEMOGLOBIN 13.8 g/dL (12.0-16.0); LYMPH # 3.4 K/uL (1.0-4.3); MEAN CELL VOLUME 98.5 fl (81.0-99.0); MEAN CORPUSCULAR HEMOGLOBIN 33.1 pg (27.0-31.0); MEAN CORPUSCULAR HGB CONC 33.7 g/dL (33.0-37.0); MEAN PLATELET VOLUME 8.7 fl (7.2-11.7); MONO # 0.6 K/uL (0.0-0.8); MONO % 8.6 % (0.0-10.0); NEUT # 2.9 K/uL (1.8-7.0); NEUT % 40.9 % (50.0-75.0); NRBC % 0.4 % (0.0-0.0); RBC 4.17 Mil/uL (3.80-5.20); RED CELL DISTRIBUTION WIDTH 12.7 % (11.5-14.5); WHITE BLOOD COUNT 7.1 K/uL (4.8-10.8)
[2018-01-23 06:45] LABS: PROTHROMBIN TIME 11.8 Seconds (9.8-13.1)
[2018-01-23 06:48] LABS: PARTIAL THROMBOPLASTIN TIME 30.3 Seconds (25.6-37.1)
[2018-01-23] MEDS: Levothyroxine 100 MCG TAB PO SCH (06:53)
[2018-01-23 06:58] LABS: ALB/GLOB RATIO 1.3 (1.0-2.1); ALBUMIN 4.3 g/dL (3.5-5.0); ALT/SGPT 29 U/L (9-52); AST/SGOT 30 U/L (14-36); BLOOD UREA NITROGEN 13 mg/dl (7-17); CALCIUM 9.3 mg/dL (8.4-10.2); GFR NON-AFRICAN AMERICAN > 60
[2018-01-23] MEDS ORDERED: Neostigmine 1:1000 (1 mg/ml) Inj ONE (07:07)
[2018-01-23] MEDS ORDERED: Lidocaine 4% (Laryng-O-Jet) Kit MM ONE (07:07)
[2018-01-23] MEDS ORDERED: Propofol 10 mg/ml Inj (20 ML) ONE (07:07)
[2018-01-23] MEDS ORDERED: Succinylcholine 200 mg/10 ml Inj IV ONE (07:07)
[2018-01-23] MEDS ORDERED: Midazolam 2 MG/2 ML VIAL ONE (07:07)
[2018-01-23] MEDS ORDERED: Rocuronium 10 mg/ml (5 ml) ONE ×4 (07:07→14:06)
[2018-01-23] MEDS ORDERED: Ropivacaine 0.5% 30ML IV ONE ×2 (07:23→07:24)
--- NOTE | 2018-01-23 07:51 | CT ---
Date of service: 01/22/2018 PROCEDURE: CT ANGIOGRAM RIGHT LOWER EXTREMITY HISTORY: RLE fracture, Possible anterior tibial artery injury COMPARISON: CT angiogram 01/21/2018 TECHNIQUE: 2.5 millimeter contiguous axial sections along with sagittal coronal reformations obtained from the proximal tibia through the foot. Contrast: 95 cubic centimeters Omnipaque 320 Radiation: 128.24 mGy-cm FINDINGS: The anterior tibial artery is a intact. However, the anterior tibial artery is courses between the comminuted fracture segments and is positioned within the medullary cavity of the distal tibia. The dorsalis pedis artery is seen and appears normal. The posterior tibial artery and peroneal artery are unremarkable. As described previously, there is a comminuted fracture of the distal tibia and fibula. IMPRESSION: CT angiogram shows an intact anterior tibial artery. However, the level comminuted tibial fracture, a fracture segment is displaced anterior to the LAVERN, causing the artery to be wedged between the fracture segments. This will result in injury to the LAVERN if the there is any surgical fixation without first freeing the artery from the between the fracture segments. Comminuted fracture of the distal tibia and fibula as previously described. Findings were communicated to the referring orthopedist
[2018-01-23] MEDS ORDERED: Bacitracin Ointment 30 GM TUBE ONE (07:57)
[2018-01-23] MEDS ORDERED: Lidocaine 1% w Epi 1:100,000 Inj ONE (07:57)
[2018-01-23] MEDS ORDERED: Bupivacaine HCl 0.25% PF (30 ml) Inj ONE (07:57)
[2018-01-23] MEDS ORDERED: Lactated Ringer's 1,000 ML IV ONE ×3 (08:55→14:20)
--- NOTE | 2018-01-23 12:31 | MRI ---
Date of service: 01/22/2018 PROCEDURE: HISTORY: r/o ligamentous damage COMPARISON: TECHNIQUE: FINDINGS: Fractures of the distal tibia and fibula. Soft tissue swelling in the posterior compartment of the lower lobe with edema of the musculature. No large hematoma. Widening of the syndesmosis. Disruption of the anterior talofibular ligament. Posterior talofibular ligament appears intact. Widening of the syndesmosis. Difficulty visualizing the deltoid and calcaneofibular ligaments. IMPRESSION: As above.
[2018-01-23] MEDS ORDERED: Iohexol 300 100 ML IJ ONE (13:00)
[2018-01-23] MEDS ORDERED: HYDROmorphone 0.5 mg/0.5 ml ISec IVP PRN (16:23)
[2018-01-23] MEDS ORDERED: Dexamethasone 4 mg/1 ml IVP PRN (16:23)
--- NOTE | 2018-01-23 16:28 | PCM.ANESB2 ---
Popliteal Nerve Block - Popliteal Nerve Block Date of Procedure: 01/23/18 Anesthesiologist: Abdi Harris Pre-Procedure Diagnosis: R tib-fib fracture Post-Procedure Diagnosis: Same Procedure Performed: Popliteal Nerve Block Right - Procedure Popliteal Nerve Block: This procedure was explained to the patient that it is for post-operative pain management. Consent was obtained after a thorough discussion with the patient regarding the benefits and possible complications of local anesthetic block of the sciatic nerve at the popliteal level. The patient was brought to the operati ng room and standard monitors are applied. Time-out was held with the circulating nurse to confirm the correct surgery and the appropriate block. After inducing general anesthesia, patient's operative leg was gently raised and supported and the groove in between the biceps femoris and vastus lateralis muscles was carefully palpated. The skin approximately 8cm above the popliteal crease was then marked. The ultrasound transducer was then applied to the posterior thigh approximately 8cm above the popliteal crease in the transverse plane and the sciatic nerve before its division was visualized lateral to the popliteal artery and in between the bicep femoris and semimembranosus/semitendinosus muscles. After identification, the lateral portion of the thigh was prepped with Chloraprep. At this point, a # 21 gauge Stimuplex insulated 4 inch needle was inserted into pre-marked area and advanced in a perpendicular direction. The needle was inserted above the ultrasound transducer in-plane towards the sciatic nerve in a [id number] direction. Needle advancement was performed carefully under direct ultrasound visualization. After repeated negative aspiration, 30cc of 0.5% ropivacaine was injected in 5cc aliquots. Under ultrasound guidance the local anesthetics were observed surrounding sciatic nerve . The needle was removed intact and sterile dressing was applied. The patient tolerated the popliteal nerve block well with stable vital signs and was subsequently prepared for the surgery. Positive ultrasound and portable doppler readings in R dorsalis pedis pulses noted prior to extubation at the end of procedure
--- NOTE | 2018-01-23 16:31 | PCM.ANESB7 ---
Adductor Canal Block - Adductor Canal Block Date of Procedure: 01/23/18 Anesthiologist: Abdi Harris Pre-Procedure Diagnosis: R tib-fib fracture Post-Procedure Diagnosis: Same Procedure Performed: Adductor Canal Block Right - Procedure Adductor Canal Block: The procedure was explained to the patient that it is for the post-operative pain management. Consent was obtained after a thorough discussion with the patient regarding the benefits and possible complications of local anesthetic adductor canal block of the femoral nerve. Standard monitors, as defined by the ASA, were applied to the patient. Time-out was held with the circulating nurse to confirm the appropriate block. After inducing general anesthesia, the patient was placed in supine position with and the operative leg was flexed slightly at the knee and externally rotated as needed, and was kept anatomically stable. The mid-thigh of the right lower extremity was exposed. The ultrasound transducer was then applied transversely along the medial aspect, about midway down the thigh and the femoral artery and vein were identified in appropriate relation with the sartorius muscle. At this time, the femoral nerve was visualized lateral to the femoral artery within the canal. After thorough identification, this area area was prepped with Chloroprep solution. At this point, a #22 gauge Stimuplex 4-inch needle was inserted in-plane in a [id number] orientation, and advanced toward the femoral nerve. Advancement was performed carefully under direct ultrasound visualization. After negative aspiration, 20cc of 0.5% ropivacaine was injected in 5cc aliquots. Under ultrasound guidance the local anesthetics were observed spreading around the femoral nerve. The needle was removed intact and sterile dressing was applied. The patient had stable vital signs, was conscious and in no apparent distress. The patient tolerated the femoral nerve block well with stable vital signs and was prepared for subsequent surgery. Positive dorsalis pedis pulses were found with color doppler as well as portable doppler at the end of the surgery.
--- NOTE | 2018-01-23 17:14 | RAD ---
Date of service: 01/23/2018 PROCEDURE: Fluoroscopic assistance in excess of 1 hour. HISTORY: ORIF RIGHT DISTAL TIB/FIB COMPARISON: None TECHNIQUE: Standard protocol for this study/examination. FINDINGS: Total fluoroscopic time (continuous mode) utilized during the procedure 579.5 seconds. IMPRESSION: Submitted images from the current procedure: Greater than 20.
--- NOTE | 2018-01-23 17:26 | RAD ---
Date of service: 01/23/2018 PROCEDURE: Right Ankle Radiographs. HISTORY: s/p ORIF COMPARISON: None available. FINDINGS: BONES: Satisfactory alignment of major fracture fragments distal tibia and fibula. No evidence of orthopedic hardware failure. JOINTS: Normal. No osteoarthritis. Ankle mortise maintained. Talar dome intact SOFT TISSUES: Normal. OTHER FINDINGS: None. IMPRESSION: Satisfactory postoperative status.
--- NOTE | 2018-01-23 17:27 | RAD ---
Date of service: 01/23/2018 PROCEDURE: Radiographs of the right tibia and fibula. HISTORY: s/p ORIF COMPARISON: None available TECHNIQUE: Frontal and lateral views obtained. FINDINGS: BONES: Major fracture fragments are anatomically aligned. No evidence of orthopedic hardware failure. No proximal osseous abnormalities detected. JOINT SPACES: Unremarkable. OTHER FINDINGS: None. IMPRESSION: Satisfactory postoperative status
--- NOTE | 2018-01-23 19:09 | PCM.SURG1 ---
Surgeon's Initial Post Op Note - Surgeon's Notes Surgeon: Marisol Metcalf Natural [employer] Trader: Co-Surgeon= Fawn Gates MD for ORIF fractures Type of Anesthesia: General Endo, Block Regional Pre-Operative Diagnosis: Right Leg: #1 Displaced, Oblique, segmental, comminuted, distal tibial shaft fracture. #2 Displaced, Posterior Maleolus Fracture (large fragment, approx. 40-45% articular surface involvement). #3 Displaced, Oblique, distal fibular/ lateral maleolus fracture. #4 Non-Displaced Medial Maleolus Fracture. #5 Complete ATFL tear. #6 Syndesmotic tear. #7 Anterior Tibial Artery entrapped within distal tibial shaft fracture. #8 Multiple Loose Bodies within ankle joint/ tibio-talar joint. #9 Signficant, baseline, peripheral arterial spasmotic state. #10 Very thin medial and lateral maleolus overlying soft tissue Operative Findings: Right Leg: #1 Displaced, Oblique, segmental, comminuted, distal tibial shaft fracture. #2 Displaced, Posterior Maleolus Fracture (large fragment, approx. 40-45% articular surface involvement). #3 Displaced, Oblique, segmental, comminuted distal fibular/ lateral maleolus fracture with anterior bone defect at level of fracture. #4 Non-Displaced, comminuted, Medial Maleolus Fracture. #5 Complete ATFL tear. #6 Syndesmotic tear (stable on external rotation stress exam and cotton test after fixation fractures of tibia and fibula). #7 Anterior Tibial Artery entrapped within distal tibial shaft fracture (intact and preserved). #8 Multiple Loose Bodies within ankle joint/ tibio-talar joint. #9 Signficant, baseline, peripheral arterial spasmotic state. #10 Very thin medial and lateral maleolus overlying soft tissue Post-Operative Diagnosis: Right Leg: #1 Displaced, Oblique, segmental, comminuted, distal tibial shaft fracture. #2 Displaced, Posterior Maleolus Fracture (large fragment, approx. 40-45% articular surface involvement). #3 Displaced, Oblique, segmental, comminuted distal fibular/ lateral maleolus fracture with anterior bone defect at level of fracture. #4 Non-Displaced, comminuted, Medial Maleolus Fracture. #5 Complete ATFL tear. #6 Syndesmotic tear (stable on external rotation stress exam and cotton test after fixation fractures of tibia and fibula). #7 Anterior Tibial Artery entrapped within distal tibial shaft fracture (intact and preserved). #8 Multiple Loose Bodies within ankle joint/ tibio-talar joint. #9 Signficant, baseline, peripheral arterial spasmotic state. #10 Very thin medial and lateral maleolus overlying soft tissue Operation Performed: Right Leg: Part 1: (Fawn Gates MD, Co-Surgeon). #1 ORIF Distal Tibial shaft fracture. #2 Bone Grafting to Distal TIbial shaft fracture. #3 Debridement interposed soft tissue at distal Tibial shaft fracture. #4 Preservation and salvage of Anterior Tibial Artery from Distal Tibial Shaft Fracture Entrapment. #5 ORIF Posterior Maleolus Fracture. #6 ORIF Distal Fibular shaft fracture/ lateral maleolus fracture. #7 Bone Grafting Lateral Maleolar fracture bone defect. #8 ORIF Medial Maleolus Fracture. Part 2: Dr. Dieter Rich, Vascular Surgeon Performed. #1 Intra-operative Right Lower Extremity Angiogram, evaluation of arterial tree. Part 3: Carol Flynn MD Primary Surgeon, Marisol Metcalf MD, 1st Natural [employer] Trader. Right Leg: Medial wound, length 14 cm/ Lateral wound, Length 10 cm. #1 Complex Plastics wound closure. #2 Application of Alloderm Allograft tissue. #3 Application of VAC. #4 Placement in Short Leg Splint Specimen/Specimens Removed: Specimen= none. Complications= none. tourniquet time= 120 min at 300mmHg. Implants=. [employer]ynthe[employer] #1 Precontoured Distal Medial Tibial Locking 8-hole Plate and 3.5/2.7mm screws (Distal Tibial Shaft and Medial Maleolus ORIF). #2 Precontoured Distal Fibula Locking 7-hole Plate and 2.7 nmm screws (distal fibular shaft and lateral maleolus ORIF). #3 Cannulated 4.0 Partially Threaded Cancellous screws x3 (posterior mal ORIF). #4 2.5cc DBM Putty Estimated Blood Loss: EBL {In ML}: 200 Blood Products Given: N/A Drains Used: No Drains Post-Op Condition: Good Date of Surgery/Procedure: 01/23/18 Time of Surgery/Procedure: 17:00
--- NOTE | 2018-01-23 20:18 | CP.PCM.PN ---
Subjective - Date & Time of Evaluation Date of Evaluation: 01/23/18 Time of Evaluation: 20:17 - Subjective Subjective: pt doing well, pain controlled. s/p orif r tib/fib fx w/ dr kiel ayers. no f/c, n/v/d. bw incl tsh noted distal pms intact, splint/dsg c/d/i Objective - Vital Signs/Intake and Output Vital Signs (last 24 hours): Temp Pulse Resp BP Pulse Ox 99.5 F 88 18 108/73 100 01/23/18 19:35 01/23/18 19:35 01/23/18 19:35 01/23/18 19:35 01/23/18 19:35 Intake and Output: 01/23/18 01/24/18 18:59 06:59 Intake Total 2200 Output Total 520 Balance 1680 - Medications Medications: Current Medications Enoxaparin Sodium (Lovenox) 40 mg SC DAILY [facility]; Protocol Hydromorphone HCl (Dilaudid) 0.5 mg IVP Q5MIN PRN PRN Reason: Pain, moderate (4-7) Last Admin: 01/23/18 19:35 Dose: 0.5 mg Hydromorphone HCl (Dilaudid 0.2 Mg/Ml Scientologist) 6 mg IV DEAN PRN; Protocol PRN Reason: Pain, severe (8-10) Lactated Ringer's (Lactated Ringer's) 1,000 mls @ 100 mls/hr IV .Q10H [facility] Cefazolin Sodium/Dextrose (Ancef Iv 2 Gm Duplex) 2 gm in 50 mls @ 50 mls/hr IVPB Q8 [facility]; Protocol Levothyroxine Sodium (Synthroid) 100 mcg PO DAILY@0630 [facility] Meperidine HCl (Demerol) 12.5 mg IVP Q5M PRN PRN Reason: Shivering/Rigor Last Admin: 01/23/18 16:35 Dose: 12.5 mg - Labs Labs: 01/23/18 05:45 01/23/18 05:45 PT 11.8 Seconds (9.8-13.1) 01/23/18 05:45 INR 1.0 01/23/18 05:45 APTT 30.3 Seconds (25.6-37.1) 01/23/18 05:45 - Constitutional Appears: Well, Non-toxic, No Acute Distress - Head Exam Head Exam: ATRAUMATIC, NORMAL INSPECTION, NORMOCEPHALIC - Eye Exam Eye Exam: EOMI, Normal appearance, PERRL Pupil Exam: NORMAL ACCOMODATION, PERRL - ENT Exam ENT Exam: Mucous Membranes Moist, Normal Exam - Neck Exam Neck Exam: Full ROM, Normal Inspection. absent: Lymphadenopathy - Respiratory Exam Respiratory Exam: Clear to Ausculation Bilateral, NORMAL BREATHING PATTERN - Cardiovascular Exam Cardiovascular Exam: REGULAR RHYTHM, RRR, +S1, +S2. absent: Murmur - GI/Abdominal Exam GI & Abdominal Exam: Soft, Normal Bowel Sounds. absent: Tenderness - Extremities Exam Extremities Exam: Full ROM, Normal Capillary Refill, Normal Inspection. absent: Joint Swelling, Pedal Edema - Back Exam Back Exam: NORMAL INSPECTION - Neurological Exam Neurological Exam: Abnormal Gait, Alert, Awake, CN II-XII Intact, Oriented x3 - Psychiatric Exam Psychiatric exam: Normal Affect, Normal Mood - Skin Skin Exam: Dry, Intact, Normal Color, Warm Assessment and Plan (1) DVT prophylaxis Status: Acute (2) Fracture of tibia and fibula Status: Acute (3) Hypothyroid Status: Acute
[2018-01-23] MEDS: Lactated Ringer's 1,000 ML IV SCH (20:30)
[2018-01-24] MEDS: ceFAZolin IV 2 gm in Dextrose 2 GM/50 ML BAG IVPB SCH ×3 (01:02→10:10)
[2018-01-24] MEDS: Lactated Ringer's 1,000 ML IV SCH ×6 (02:30→22:30)
--- NOTE | 2018-01-24 02:43 | CP.PCM.PN ---
Subjective - Date & Time of Evaluation Date of Evaluation: 01/24/18 Time of Evaluation: 02:40 - Subjective Subjective: Progress Note- Dr. Kowalski pt seen at bedside regarding pain to right leg s/p ORIF of tibia and fibula with complex wound closure and application of wound vac. Pt states pain is partially controlled by [employer]W MEMBER pump and IV meds but still feeling pain on the inside of her right leg. Objective - Vital Signs/Intake and Output Vital Signs (last 24 hours): Temp Pulse Resp BP Pulse Ox 99.1 F 70 20 117/73 99 01/23/18 22:45 01/23/18 22:45 01/23/18 22:45 01/23/18 22:45 01/23/18 22:45 Intake and Output: 01/23/18 01/24/18 18:59 06:59 Intake Total 3000 Output Total 720 Balance 2280 - Medications Medications: Current Medications Diazepam (Valium) 5 mg PO Q6 PRN PRN Reason: Muscle spasm Last Admin: 01/24/18 00:08 Dose: 5 mg Enoxaparin Sodium (Lovenox) 40 mg SC DAILY [facility]; Protocol Hydromorphone HCl (Dilaudid 0.2 Mg/Ml Color Strainer) 6 mg IV SYSTEMS DEVELOPMENT CONSULTANT PRN; Protocol PRN Reason: Pain, severe (8-10) Last Admin: 01/23/18 23:43 Dose: 6 mg Hydromorphone HCl (Dilaudid) 1.5 mg IVP Q3 PRN PRN Reason: Pain, severe (8-10) Lactated Ringer's (Lactated Ringer's) 1,000 mls @ 100 mls/hr IV .Q10H [facility] Last Admin: 01/23/18 20:30 Dose: 0 mls Cefazolin Sodium/Dextrose (Ancef Iv 2 Gm Duplex) 2 gm in 50 mls @ 50 mls/hr IVPB Q8 [facility]; Protocol Last Admin: 01/24/18 01:08 Dose: 50 mls/hr Levothyroxine Sodium (Synthroid) 100 mcg PO DAILY@0630 [facility] Meperidine HCl (Demerol) 12.5 mg IVP Q5M PRN PRN Reason: Shivering/Rigor Last Admin: 01/23/18 16:35 Dose: 12.5 mg - Labs Labs: 01/23/18 05:45 01/23/18 05:45 PT 11.8 Seconds (9.8-13.1) 01/23/18 05:45 INR 1.0 01/23/18 05:45 APTT 30.3 Seconds (25.6-37.1) 01/23/18 05:45 - Constitutional Appears: Well, Non-toxic - Extremities Exam Additional comments: Right lower extremity exam: -No pain or tenderness elicited upon passive extension and flexion of digits -Pulses DP/PT are palpable and confirmed with Doppler examination with triphasic regular waveforms -CFT to all digits <3 sec x 5 -temperature gradient warm to cool from proximal to distal; WNL - Neurological Exam Neurological Exam: Alert, Awake, Oriented x3
[2018-01-24] MEDS: Levothyroxine 100 MCG TAB PO SCH (05:58)
[2018-01-24 06:52] LABS: BASO # 0.1 K/uL (0.0-0.2); BASO % 0.5 % (0.0-2.0); EOS % 0.1 % (0.0-4.0); LYMPH # 2.5 K/uL (1.0-4.3); LYMPH % 25.3 % (20.0-40.0); MEAN CELL VOLUME 96.5 fl (81.0-99.0); MEAN CORPUSCULAR HEMOGLOBIN 33.3 pg (27.0-31.0); MEAN CORPUSCULAR HGB CONC 34.5 g/dL (33.0-37.0); MEAN PLATELET VOLUME 8.8 fl (7.2-11.7); MONO # 0.9 K/uL (0.0-0.8); MONO % 9.6 % (0.0-10.0); NEUT # 6.3 K/uL (1.8-7.0); NEUT % 64.5 % (50.0-75.0); RBC 3.59 Mil/uL (3.80-5.20); RED CELL DISTRIBUTION WIDTH 12.4 % (11.5-14.5); WHITE BLOOD COUNT 9.7 K/uL (4.8-10.8)
[2018-01-24 07:10] LABS: ALB/GLOB RATIO 1.2 (1.0-2.1); ALBUMIN 3.6 g/dL (3.5-5.0); ALT/SGPT 35 U/L (9-52); AST/SGOT 51 U/L (14-36); BLOOD UREA NITROGEN 8 mg/dl (7-17); CALCIUM 8.9 mg/dL (8.4-10.2); GFR NON-AFRICAN AMERICAN > 60
--- NOTE | 2018-01-24 08:29 | CP.PCM.PN ---
Subjective - Date & Time of Evaluation Date of Evaluation: 01/24/18 Time of Evaluation: 08:26 - Subjective Subjective: pt writhing in pain. division sales manager on demand w/o cont rate, no f/c, n/v/d. bw noted. rle elevated and iced still c/o muscle spasms to leg no relief from ivp dilaudid given at time of this providers eval pt is day 1 s/p orif. w/ extensive hardware placement Objective - Vital Signs/Intake and Output Vital Signs (last 24 hours): Temp Pulse Resp BP Pulse Ox 99.2 F 93 H 20 101/65 99 01/24/18 04:30 01/24/18 04:30 01/24/18 04:30 01/24/18 04:30 01/24/18 04:30 - Medications Medications: Current Medications Diazepam (Valium) 5 mg PO ONCE ONE Stop: 01/24/18 07:31 Diazepam (Valium) 10 mg PO Q6 PRN PRN Reason: Muscle spasm Enoxaparin Sodium (Lovenox) 40 mg SC DAILY [facility]; Protocol Hydromorphone HCl (Dilaudid 0.2 Mg/Ml Gift Consultant) 6 mg IV VESSEL SLAG WORKER PRN; Protocol PRN Reason: Pain, severe (8-10) Last Admin: 01/24/18 06:12 Dose: 6 mg Hydromorphone HCl (Dilaudid) 1.5 mg IVP Q3 PRN PRN Reason: Pain, severe (8-10) Last Admin: 01/24/18 07:22 Dose: 1.5 mg Lactated Ringer's (Lactated Ringer's) 1,000 mls @ 100 mls/hr IV .Q10H [facility] Last Admin: 01/24/18 02:30 Dose: Not Given Cefazolin Sodium/Dextrose (Ancef Iv 2 Gm Duplex) 2 gm in 50 mls @ 50 mls/hr IVPB Q8 [facility]; Protocol Last Admin: 01/24/18 01:08 Dose: 50 mls/hr Levothyroxine Sodium (Synthroid) 100 mcg PO DAILY@0630 [facility] Last Admin: 01/24/18 05:58 Dose: 100 mcg Meperidine HCl (Demerol) 12.5 mg IVP Q5M PRN PRN Reason: Shivering/Rigor Last Admin: 01/23/18 16:35 Dose: 12.5 mg - Labs Labs: 01/24/18 05:30 01/24/18 05:30 PT 11.8 Seconds (9.8-13.1) 01/23/18 05:45 INR 1.0 01/23/18 05:45 APTT 30.3 Seconds (25.6-37.1) 01/23/18 05:45 - Constitutional Appears: Well, Non-toxic - Head Exam Head Exam: ATRAUMATIC, NORMAL INSPECTION, NORMOCEPHALIC - Eye Exam Eye Exam: EOMI, Normal appearance, PERRL Pupil Exam: NORMAL ACCOMODATION, PERRL - ENT Exam ENT Exam: Mucous Membranes Moist, Normal Exam - Neck Exam Neck Exam: Full ROM, Normal Inspection. absent: Lymphadenopathy - Respiratory Exam Respiratory Exam: Clear to Ausculation Bilateral, NORMAL BREATHING PATTERN - Cardiovascular Exam Cardiovascular Exam: REGULAR RHYTHM, RRR, +S1, +S2. absent: Murmur - GI/Abdominal Exam GI & Abdominal Exam: Soft, Normal Bowel Sounds. absent: Tenderness - Extremities Exam Extremities Exam: Full ROM, Normal Capillary Refill, Normal Inspection. absent: Joint Swelling, Pedal Edema - Back Exam Back Exam: NORMAL INSPECTION - Neurological Exam Neurological Exam: Abnormal Gait, Alert, Awake, CN II-XII Intact, Oriented x3 - Psychiatric Exam Psychiatric exam: Normal Affect, Normal Mood - Skin Skin Exam: Diaphoretic, Intact, Pallor, Warm Assessment and Plan (1) DVT prophylaxis Assessment & Plan: scd nad ae hose lovenox Status: Acute (2) Fracture of tibia and fibula Assessment & Plan: pod 1 s/p orif tib fib w/ vascular and plstic helping ortho close extensive pain requiring pain managmeent consult approx 1h of direct/indirect time w/ pt dialudid prn along w/ dilaudid division sales manager ordered valium ordered nad incr to provide aide of muscle spasms distal pms intact at present, pulses present and opllar 2+ per dr villarreal fascia was not closed which would prevention formation of compartment syndrome. cont neuro checks cont elevation/ice ortho, pain maangement, vasclar nad plastics consults to continue Status: Acute (3) Hypothyroid Assessment & Plan: cont synthroid same dose ntil d/c w/ pt Status: Acute
[2018-01-24] MEDS ORDERED: Oxycodone/Acetaminophen 5/325 mg Tab PO PRN (08:54)
[2018-01-24] MEDS ORDERED: Enoxaparin 150 mg Syringe SC SCH (09:00)
[2018-01-24] MEDS: Enoxaparin 40 mg Syringe SC SCH (10:19)
--- NOTE | 2018-01-24 11:26 | CP.PCM.CON ---
History of Present Illness - History of Present Illness History of Present Illness: 37 y/o woman s/p ORIF right ankle POD 1 with severe post operative pain. The patient's pain was controlled by peripheral nerve blocks performed prior to the procedure on 01/23/18, however the effect began to wear off at 21:00 that evening and her pain has been progressively worsening. Past Patient History - Past Medical History & Family History Past Medical History?: Yes - Past Social History Alcohol: None Drugs: Denies - CARDIAC Hx Cardiac Disorders: No - PULMONARY Hx Respiratory Disorders: No - NEUROLOGICAL Hx Neurological Disorder: No - HEENT Hx HEENT Problems: No - RENAL Hx Chronic Kidney Disease: No - ENDOCRINE/METABOLIC Hx Hypothyroidism: Yes - HEMATOLOGICAL/ONCOLOGICAL Hx Blood Disorders: No Hx AIDS: No Hx Human Immunodeficiency Virus (HIV): No - INTEGUMENTARY Hx Dermatological Problems: Yes (malignant melanoma) - MUSCULOSKELETAL/RHEUMATOLOGICAL Hx Musculoskeletal Disorders: No Hx Falls: No - GASTROINTESTINAL Hx Gastrointestinal Disorders: No - GENITOURINARY/GYNECOLOGICAL Hx Genitourinary Disorders: No - PSYCHIATRIC Hx Substance Use: No - SURGICAL HISTORY Hx Surgeries: Yes Other/Comment: wisdom teeth - ANESTHESIA Hx Anesthesia: Yes Hx Anesthesia Reactions: No Meds Allergies/Adverse Reactions: Allergies Allergy/AdvReac Type Severity Reaction Status Date / Time No Known Allergies Allergy Verified 01/20/18 21:45 - Medications Medications: Current Medications Acetaminophen (Tylenol 325mg Tab) 650 mg PO Q4 PRN PRN Reason: Fever >100.4 F Diazepam (Valium) 10 mg PO Q6 PRN PRN Reason: Muscle spasm Enoxaparin Sodium (Lovenox) 40 mg SC DAILY [facility]; Protocol Last Admin: 01/24/18 10:19 Dose: 40 mg Gabapentin (Neurontin) 300 mg PO BID [facility] Hydromorphone HCl (Dilaudid) 1.5 mg IVP Q3 PRN PRN Reason: Pain, severe (8-10) Last Admin: 01/24/18 07:22 Dose: 1.5 mg Hydromorphone HCl (Dilaudid 0.2 Mg/Ml Claim Approver) 0 mg IV PRN PRN; Protocol PRN Reason: Pain, moderate (4-7) Lactated Ringer's (Lactated Ringer's) 1,000 mls @ 100 mls/hr IV .Q10H [facility] Last Admin: 01/24/18 02:30 Dose: Not Given Cefazolin Sodium/Dextrose (Ancef Iv 2 Gm Duplex) 2 gm in 50 mls @ 50 mls/hr IVPB Q8 [facility]; Protocol Last Admin: 01/24/18 10:10 Dose: 50 mls/hr Acetaminophen (Ofirmev) 100 mls @ 400 mls/hr IVPB Q6H [facility]; Protocol Stop: 01/25/18 11:01 Levothyroxine Sodium (Synthroid) 100 mcg PO DAILY@0630 [facility] Last Admin: 01/24/18 05:58 Dose: 100 mcg Ondansetron HCl (Zofran Inj) 4 mg IVP Q8 PRN PRN Reason: Nausea/Vomiting Physical Exam - Constitutional Additional comments: Appears uncomfortable, becomes tearful when describing her pain. - Eye Exam Pupil Exam: Miosis - Respiratory Exam Respiratory Exam: Clear to Auscultation Bilateral, NORMAL BREATHING PATTERN - Cardiovascular Exam Cardiovascular Exam: REGULAR RHYTHM - Extremities Exam Additional comments: Right lower extremity with posterior splint and wound vac in place. Toes are cool to the touch equally bilaterally. Good capillary refill on the right lower extremity. No pain elicited with passive stretch, exam limited by posterior splint. The skin blow the knee on the lateral aspect of the right leg is bruised, but not tense. The patient has states that her toes are "numb" but is able to discriminate light touch at the level of the right foot in both the femoral and sciatic nerve distributions. Results - Vital Signs Recent Vital Signs: Last Vital Signs Temp 101.0 F H 01/24/18 09:03 Pulse 93 H 01/24/18 09:03 Resp 20 01/24/18 09:03 BP 150/98 H 01/24/18 09:03 Pulse Ox 98 01/24/18 09:03 - Labs Result Diagrams: 01/24/18 05:30 01/24/18 05:30 Labs: Laboratory Results - last 24 hr 01/24/18 01/24/18 05:30 05:30 WBC 9.7 RBC 3.59 L Hgb 12.0 Hct 34.7 MCV 96.5 D MCH 33.3 H MCHC 34.5 RDW 12.4 Plt Count 253 MPV 8.8 Neut % (Auto) 64.5 Lymph % (Auto) 25.3 [place] % (Auto) 9.6 Eos % (Auto) 0.1 Baso % (Auto) 0.5 Neut # (Auto) 6.3 Lymph # (Auto) 2.5 [place] # (Auto) 0.9 H Eos # (Auto) 0.0 Baso # (Auto) 0.1 Sodium 137 Potassium 3.6 Chloride 104 Carbon Dioxide 23 Anion Gap 14 BUN 8 Creatinine 0.8 Est GFR ( Amer) > 60 Est GFR (Non-Af Amer) > 60 Random Glucose 94 Calcium 8.9 Total Bilirubin 1.2 AST 51 H D ALT 35 Alkaline Phosphatase 46 Total Protein 6.5 Albumin 3.6 Globulin 2.9 Albumin/Globulin Ratio 1.2 Assessment & Plan - Assessment and Plan (Free Text) Assessment: 37 y/o self reportedly opiate naive patient with increasing right leg pain and narcotic requirements following surgery yesterday. Plan: The patient's pain may be intensifying as the peripheral nerve blocks wear off. However, the patient should be evaluated frequently by the primary and or orthopaedic teams to ensure that there is no concern for a developing compartment syndrome. Overnight a LIME KILN TENDER was started and both Dilaudid boluses and Valium were added. Will increase LIME KILN TENDER dose to 0.3 mg and reduce lock out interval to 8 minutes. Will add Ofirmev 1000 mg Q6 and Gabapentin 300 mg BID. Discussed plan and recommendations with Dr. Barrera from pain management.
[2018-01-24] MEDS: ceFAZolin 2 GM in Sodium Chloride 0.9% 100 ML IVPB SCH (17:45)
--- NOTE | 2018-01-24 18:08 | CP.PCM.PN ---
Subjective - Date & Time of Evaluation Date of Evaluation: 01/24/18 Time of Evaluation: 17:54 - Subjective Subjective: Patient in pain but tolerable with Dilaudid. She is keeping the leg elevated. She is sleepy and groggy today. Has not started the Neurontin yet. Objective - Vital Signs/Intake and Output Vital Signs (last 24 hours): Temp Pulse Resp BP Pulse Ox 98.3 F 99 H 20 118/79 98 01/24/18 16:30 01/24/18 16:30 01/24/18 16:30 01/24/18 16:26 01/24/18 16:30 - Medications Medications: Current Medications Acetaminophen (Tylenol 325mg Tab) 650 mg PO Q4 PRN PRN Reason: Fever >100.4 F Diazepam (Valium) 10 mg PO Q6 PRN PRN Reason: Muscle spasm Last Admin: 01/24/18 16:37 Dose: 10 mg Enoxaparin Sodium (Lovenox) 40 mg SC DAILY [facility]; Protocol Last Admin: 01/24/18 10:19 Dose: 40 mg Hydromorphone HCl (Dilaudid) 1.5 mg IVP Q3 PRN PRN Reason: Pain, severe (8-10) Last Admin: 01/24/18 16:51 Dose: 1.5 mg Hydromorphone HCl (Dilaudid 0.2 Mg/Ml Log Hauler) 0 mg IV PRN PRN; Protocol PRN Reason: Pain, moderate (4-7) Last Admin: 01/24/18 12:41 Dose: 6 mg Lactated Ringer's (Lactated Ringer's) 1,000 mls @ 100 mls/hr IV .Q10H [facility] Last Admin: 01/24/18 13:42 Dose: 100 mls/hr Lactated Ringer's (Lactated Ringer's) 1,000 mls @ 200 mls/hr IV .Q5H [facility] Cefazolin Sodium 2 gm/ Sodium (Chloride) 100 mls @ 100 mls/hr IVPB Q8 [facility]; Protocol Last Admin: 01/24/18 17:45 Dose: 100 mls/hr Acetaminophen (Ofirmev) 100 mls @ 400 mls/hr IVPB 0300,0900,1500,2100 [facility]; Protocol Stop: 01/25/18 11:01 Levothyroxine Sodium (Synthroid) 100 mcg PO DAILY@0630 [facility] Last Admin: 01/24/18 05:58 Dose: 100 mcg Ondansetron HCl (Zofran Inj) 4 mg IVP Q8 PRN PRN Reason: Nausea/Vomiting Pregabalin (Lyrica) 75 mg PO BID [facility] - Labs Labs: 01/24/18 05:30 01/24/18 05:30 PT 11.8 Seconds (9.8-13.1) 01/23/18 05:45 INR 1.0 01/23/18 05:45 APTT 30.3 Seconds (25.6-37.1) 01/23/18 05:45 - Extremities Exam Additional comments: Right leg swollen from mif thigh down. VAC seal is intact. There is minimal drainage in the canister. The foot is swollen with +2 pitting edema. There is good cap refill to the toes. Toes cool but symmetrical to the left side. There is no calf pain, no pain out of proportion with toe motion or knee motion. There is some bruising to the dorsum of the foot. Posterior splint in place. Assessment and Plan - Assessment and Plan (Free Text) Assessment: 37 year old female status post ORIF of comminuted Tib-Fib fx and complex closure of the wounds. She has no known history of Raynaud's but does have cold toes all the time. Wears warmers while skiing. She has similar cool hands and is more sensitive to the cold in her extremities. The fascia was incompletely closed and patient is low risk for a compartment syndrome. She has good circulation present. The wound VAC seal is in tact and output is all serous. I agree with adding a nerve modulating medication. Have changed to Lyrica since it is on formulatry as it will work faster (3 days as opposed to 1 week) that Neurontin. Start at 75 mg BID but can be increased. Since she is also getting Vallium and Dilaudid, the lower dose is preferable. Continue with ice packs for the ankle area to help with swelling. Continue with elevation as tolerated for edema as well. Will plan to remove the VAC on Friday evening. depending on how swollen the leg is, may elect to replace and keep for another 5 days. May remove or loosen posterior splint as needed from my perspective although splint helps with preventing Achilles contracture in the face of the edema. Continue with antibiotics for at least 1 week, but may switch to PO once Dr. Femi High agrees.
[2018-01-25] MEDS: ceFAZolin 2 GM in Sodium Chloride 0.9% 100 ML IVPB SCH ×3 (01:01→20:18)
[2018-01-25] MEDS: Lactated Ringer's 1,000 ML IV SCH ×7 (03:15→23:15)
[2018-01-25] MEDS: Levothyroxine 100 MCG TAB PO SCH (06:29)
[2018-01-25 07:35] LABS: BASO % 0.6 % (0.0-2.0); EOS # 0.3 K/uL (0.0-0.7); EOS % 4.3 % (0.0-4.0); HEMOGLOBIN 11.4 g/dL (12.0-16.0); LYMPH # 1.8 K/uL (1.0-4.3); LYMPH % 25.2 % (20.0-40.0); MEAN CELL VOLUME 99.7 fl (81.0-99.0); MEAN CORPUSCULAR HEMOGLOBIN 33.6 pg (27.0-31.0); MEAN CORPUSCULAR HGB CONC 33.7 g/dL (33.0-37.0); MEAN PLATELET VOLUME 8.7 fl (7.2-11.7); MONO # 0.9 K/uL (0.0-0.8); MONO % 12.3 % (0.0-10.0); NEUT # 4.1 K/uL (1.8-7.0); NEUT % 57.6 % (50.0-75.0); NRBC % 0.1 % (0.0-0.0); RBC 3.39 Mil/uL (3.80-5.20); RED CELL DISTRIBUTION WIDTH 12.5 % (11.5-14.5); WHITE BLOOD COUNT 7.1 K/uL (4.8-10.8)
[2018-01-25 08:00] LABS: ALB/GLOB RATIO 1.1 (1.0-2.1); ALBUMIN 3.3 g/dL (3.5-5.0); ALT/SGPT 31 U/L (9-52); AST/SGOT 50 U/L (14-36); BLOOD UREA NITROGEN 5 mg/dl (7-17); CALCIUM 8.5 mg/dL (8.4-10.2); GFR NON-AFRICAN AMERICAN > 60
[2018-01-25] MEDS: Enoxaparin 40 mg Syringe SC SCH (12:11)
--- NOTE | 2018-01-25 14:31 | CP.PCM.PN ---
Subjective - Date & Time of Evaluation Date of Evaluation: 01/25/18 Time of Evaluation: 14:30 - Subjective Subjective: pt doing well. pain more controlled at present. all consult notes appriciated. distal pms intact, toes cold ?? raynauds. bw noted. cpk trending down. no f/c, n/v/d. Objective - Vital Signs/Intake and Output Vital Signs (last 24 hours): Temp Pulse Resp BP Pulse Ox 97.4 F L 68 18 109/73 100 01/25/18 08:37 01/25/18 08:37 01/25/18 08:37 01/25/18 08:37 01/25/18 08:37 - Medications Medications: Current Medications Acetaminophen (Tylenol 325mg Tab) 650 mg PO Q4 PRN PRN Reason: Fever >100.4 F Diazepam (Valium) 10 mg PO Q6 PRN PRN Reason: Muscle spasm Last Admin: 01/24/18 22:38 Dose: 10 mg Enoxaparin Sodium (Lovenox) 40 mg SC DAILY [facility]; Protocol Last Admin: 01/25/18 12:11 Dose: 40 mg Hydromorphone HCl (Dilaudid) 1.5 mg IVP Q3 PRN PRN Reason: Pain, severe (8-10) Last Admin: 01/25/18 09:45 Dose: 1.5 mg Hydromorphone HCl (Dilaudid 0.2 Mg/Ml [employer]) 0 mg IV PRN PRN; Protocol PRN Reason: Pain, moderate (4-7) Lactated Ringer's (Lactated Ringer's) 1,000 mls @ 100 mls/hr IV .Q10H [facility] Last Admin: 01/24/18 22:30 Dose: Not Given Lactated Ringer's (Lactated Ringer's) 1,000 mls @ 200 mls/hr IV .Q5H [facility] Last Admin: 01/25/18 03:21 Dose: 200 mls/hr Cefazolin Sodium 2 gm/ Sodium (Chloride) 100 mls @ 100 mls/hr IVPB Q8 [facility]; Protocol Last Admin: 01/25/18 11:35 Dose: 100 mls/hr Levothyroxine Sodium (Synthroid) 100 mcg PO DAILY@0630 [facility] Last Admin: 01/25/18 06:29 Dose: 100 mcg Ondansetron HCl (Zofran Inj) 4 mg IVP Q8 PRN PRN Reason: Nausea/Vomiting Pregabalin (Lyrica) 75 mg PO BID [facility] Last Admin: 01/25/18 09:39 Dose: 75 mg - Labs Labs: 01/25/18 06:00 01/25/18 06:00 PT 11.8 Seconds (9.8-13.1) 01/23/18 05:45 INR 1.0 01/23/18 05:45 APTT 30.3 Seconds (25.6-37.1) 01/23/18 05:45 - Constitutional Appears: Well, Non-toxic, No Acute Distress - Head Exam Head Exam: ATRAUMATIC, NORMAL INSPECTION, NORMOCEPHALIC - Eye Exam Eye Exam: EOMI, Normal appearance, PERRL Pupil Exam: NORMAL ACCOMODATION, PERRL - ENT Exam ENT Exam: Mucous Membranes Moist, Normal Exam - Neck Exam Neck Exam: Full ROM, Normal Inspection. absent: Lymphadenopathy - Respiratory Exam Respiratory Exam: Clear to Ausculation Bilateral, NORMAL BREATHING PATTERN - Cardiovascular Exam Cardiovascular Exam: REGULAR RHYTHM, RRR, +S1, +S2. absent: Murmur - GI/Abdominal Exam GI & Abdominal Exam: Soft, Normal Bowel Sounds. absent: Tenderness - Extremities Exam Extremities Exam: Full ROM, Normal Capillary Refill, Normal Inspection. absent: Joint Swelling, Pedal Edema Additional comments: distal pms intact - Back Exam Back Exam: NORMAL INSPECTION - Neurological Exam Neurological Exam: Alert, Awake, CN II-XII Intact, Normal Gait, Oriented x3 - Psychiatric Exam Psychiatric exam: Normal Affect, Normal Mood - Skin Skin Exam: Dry, Intact, Normal Color, Warm Assessment and Plan (1) DVT prophylaxis Status: Acute (2) Fracture of tibia and fibula Status: Acute (3) Hypothyroid Status: Acute - Assessment and Plan (Free Text) Assessment: (1) DVT prophylaxis Assessment & Plan: scd nad ae hose lovenox Status: Acute (2) Fracture of tibia and fibula Assessment & Plan: pod 2 s/p orif tib fib w/ vascular and plstic helping ortho close extensive pain requiring pain managmeent consult-more comfortable today approx 1h of direct/indirect time w/ pt dialudid prn along w/ dilaudid community dietitian ordered valium ordered nad incr to provide aide of muscle spasms distal pms intact at present, pulses present and opllar 2+ per dr villarreal fascia was not closed which would prevention formation of compartment syndrome. cont neuro checks cont elevation/ice ortho, pain maangement, vasclar nad plastics consults to continue Status: Acute (3) Hypothyroid Assessment & Plan: cont synthroid same dose ntil d/c w/ pt Status: Acute
[2018-01-26] MEDS: Lactated Ringer's 1,000 ML IV SCH ×3 (00:35→07:11)
[2018-01-26] MEDS ORDERED: ceFAZolin IV 2 gm in Dextrose 2 GM/50 ML BAG IVPB SCH (04:00)
[2018-01-26] MEDS: Levothyroxine 100 MCG TAB PO SCH (07:11)
[2018-01-26] MEDS: Enoxaparin 40 mg Syringe SC SCH (08:30)
[2018-01-26] MEDS ORDERED: ceFAZolin 2 GM in Sodium Chloride 0.9% 100 ML IVPB SCH (09:45)
--- NOTE | 2018-01-26 11:01 | CP.PCM.PN ---
Subjective - Date & Time of Evaluation Date of Evaluation: 01/26/18 Time of Evaluation: 10:59 - Subjective Subjective: pt doing well, pain controlled. no f/c, n/v/d. bw noted consults appriciated sw for placement foot swelling noted, distal pms intact, cap refill brisk Objective - Vital Signs/Intake and Output Vital Signs (last 24 hours): Temp Pulse Resp BP Pulse Ox 98 F 81 18 130/87 100 01/26/18 09:00 01/26/18 09:00 01/26/18 09:00 01/26/18 09:00 01/26/18 09:00 - Medications Medications: Current Medications Acetaminophen (Tylenol 325mg Tab) 650 mg PO Q4 PRN PRN Reason: Fever >100.4 F Acetaminophen (Tylenol 325mg Tab) 650 mg PO Q6 PRN PRN Reason: Pain, moderate (4-7) Last Admin: 01/26/18 08:27 Dose: 650 mg Diazepam (Valium) 10 mg PO Q6 PRN PRN Reason: Muscle spasm Last Admin: 01/25/18 23:14 Dose: 10 mg Enoxaparin Sodium (Lovenox) 40 mg SC DAILY [facility]; Protocol Last Admin: 01/26/18 08:30 Dose: 40 mg Hydromorphone HCl (Dilaudid) 1.5 mg IVP Q3 PRN PRN Reason: Pain, severe (8-10) Last Admin: 01/26/18 09:58 Dose: 1.5 mg Hydromorphone HCl (Dilaudid 0.2 Mg/Ml Manager Law) 0 mg IV PRN PRN; Protocol PRN Reason: Pain, moderate (4-7) Last Admin: 01/26/18 02:46 Dose: 6 mg Lactated Ringer's (Lactated Ringer's) 1,000 mls @ 100 mls/hr IV .Q10H [facility] Last Admin: 01/25/18 20:19 Dose: 100 mls/hr Lactated Ringer's (Lactated Ringer's) 1,000 mls @ 200 mls/hr IV .Q5H [facility] Last Admin: 01/26/18 07:11 Dose: 200 mls/hr Cefazolin Sodium 2 gm/ Sodium (Chloride) 100 mls @ 100 mls/hr IVPB Q8@0400,1200,2000 [facility]; Protocol Levothyroxine Sodium (Synthroid) 100 mcg PO DAILY@0630 [facility] Last Admin: 01/26/18 07:11 Dose: 100 mcg Ondansetron HCl (Zofran Inj) 4 mg IVP Q8 PRN PRN Reason: Nausea/Vomiting Pregabalin (Lyrica) 75 mg PO BID [facility] Last Admin: 01/26/18 08:30 Dose: 75 mg - Labs Labs: 01/25/18 06:00 01/25/18 06:00 PT 11.8 Seconds (9.8-13.1) 01/23/18 05:45 INR 1.0 01/23/18 05:45 APTT 30.3 Seconds (25.6-37.1) 01/23/18 05:45 - Constitutional Appears: Well, Non-toxic, No Acute Distress - Head Exam Head Exam: ATRAUMATIC, NORMAL INSPECTION, NORMOCEPHALIC - Eye Exam Eye Exam: EOMI, Normal appearance, PERRL Pupil Exam: NORMAL ACCOMODATION, PERRL - ENT Exam ENT Exam: Mucous Membranes Moist, Normal Exam - Neck Exam Neck Exam: Full ROM, Normal Inspection. absent: Lymphadenopathy - Respiratory Exam Respiratory Exam: Clear to Ausculation Bilateral, NORMAL BREATHING PATTERN - Cardiovascular Exam Cardiovascular Exam: REGULAR RHYTHM, RRR, +S1, +S2. absent: Murmur - GI/Abdominal Exam GI & Abdominal Exam: Soft, Normal Bowel Sounds. absent: Tenderness - Extremities Exam Extremities Exam: Full ROM, Normal Capillary Refill, Normal Inspection. absent: Joint Swelling, Pedal Edema Additional comments: foot swollen, distal pms intact, cap refill brisk, dopplars present - Back Exam Back Exam: NORMAL INSPECTION - Neurological Exam Neurological Exam: Alert, Awake, CN II-XII Intact, Normal Gait, Oriented x3 - Psychiatric Exam Psychiatric exam: Normal Affect, Normal Mood - Skin Skin Exam: Dry, Intact, Normal Color, Warm Assessment and Plan (1) DVT prophylaxis Status: Acute (2) Fracture of tibia and fibula Status: Acute (3) Hypothyroid Status: Acute - Assessment and Plan (Free Text) Assessment: (1) DVT prophylaxis Assessment & Plan: scd nad ae hose lovenox Status: Acute (2) Fracture of tibia and fibula Assessment & Plan: pod 1 s/p orif tib fib w/ vascular and plstic helping ortho close extensive pain requiring pain managmeent consult approx 1h of direct/indirect time w/ pt dialudid prn along w/ dilaudid commercial sales specialist ordered valium ordered nad incr to provide aide of muscle spasms distal pms intact at present, pulses present and opllar 2+ per dr villarreal fascia was not closed which would prevention formation of com partment syndrome. cont neuro checks cont elevation/ice ortho, pain maangement, vasclar nad plastics consults to continue Status: Acute (3) Hypothyroid Assessment & Plan: titrate synthroid Status: Acute for placement
--- NOTE | 2018-01-26 12:40 | CP.PCM.PN ---
Subjective - Date & Time of Evaluation Date of Evaluation: 01/26/18 Time of Evaluation: 09:00 - Subjective Subjective: Patient still complaining of pain in her leg and foot. She is complaining that her foot is still very swollen. She denies numbness/tingling. She says she has been keeping it elevated above her heart. She says she is drowsy today from pain medication. Denies CP/SOB/dizzines/n/v. Objective - Vital Signs/Intake and Output Vital Signs (last 24 hours): Temp Pulse Resp BP Pulse Ox 98 F 81 18 130/87 100 01/26/18 09:00 01/26/18 09:00 01/26/18 09:00 01/26/18 09:00 01/26/18 09:00 - Medications Medications: Current Medications Acetaminophen (Tylenol 325mg Tab) 650 mg PO Q4 PRN PRN Reason: Fever >100.4 F Acetaminophen (Tylenol 325mg Tab) 650 mg PO Q6 PRN PRN Reason: Pain, moderate (4-7) Last Admin: 01/26/18 08:27 Dose: 650 mg Diazepam (Valium) 10 mg PO Q6 PRN PRN Reason: Muscle spasm Last Admin: 01/25/18 23:14 Dose: 10 mg Enoxaparin Sodium (Lovenox) 40 mg SC DAILY [facility]; Protocol Last Admin: 01/26/18 08:30 Dose: 40 mg Hydromorphone HCl (Dilaudid) 1.5 mg IVP Q3 PRN PRN Reason: Pain, severe (8-10) Last Admin: 01/26/18 09:58 Dose: 1.5 mg Hydromorphone HCl (Dilaudid 0.2 Mg/Ml Team Truck Driver) 0 mg IV PRN PRN; Protocol PRN Reason: Pain, moderate (4-7) Last Admin: 01/26/18 12:30 Dose: 6 mg Lactated Ringer's (Lactated Ringer's) 1,000 mls @ 100 mls/hr IV .Q10H [facility] Last Admin: 01/25/18 20:19 Dose: 100 mls/hr Lactated Ringer's (Lactated Ringer's) 1,000 mls @ 200 mls/hr IV .Q5H [facility] Last Admin: 01/26/18 07:11 Dose: 200 mls/hr Cefazolin Sodium 2 gm/ Sodium (Chloride) 100 mls @ 100 mls/hr IVPB Q8@0400,1200,2000 [facility]; Protocol Levothyroxine Sodium (Synthroid) 100 mcg PO DAILY@0630 [facility] Last Admin: 01/26/18 07:11 Dose: 100 mcg Ondansetron HCl (Zofran Inj) 4 mg IVP Q8 PRN PRN Reason: Nausea/Vomiting Pregabalin (Lyrica) 75 mg PO BID [facility] Last Admin: 01/26/18 08:30 Dose: 75 mg - Labs Labs: 01/25/18 06:00 01/25/18 06:00 PT 11.8 Seconds (9.8-13.1) 01/23/18 05:45 INR 1.0 01/23/18 05:45 APTT 30.3 Seconds (25.6-37.1) 01/23/18 05:45 - Constitutional Appears: Well, No Acute Distress (patient sleeping when entered room. Comfortable, no obvious painful distress, slightly drowsy) - Extremities Exam Additional comments: RLE: foot exposed, +DP/PT pulses palpably, noted swelling to foot, moderate, compartments soft, +ROM flex/ext toes limited, but no increased pain with AROM of toes, foot elevated on pillows. splint intact, wound vac intact. Sensation intact to 1[employer] website, dorsum and plantar aspect of foot Assessment and Plan (1) Closed fracture of distal end of right fibula and tibia Assessment & Plan: intraarticular POD#3 s/p ORIF right distal tib/fib wound vac per Dr. Flynn NWB elevation encourage AROM toes foot exposed for NV checks, consider compression from toes if swelling does not improve no clinical suspicion of compartment syndrome at this time, patient comfortable, cont elevation, monitor, ice d/w Dr. Metcalf, agrees with above plan d/c to TCU PT/OT VTE proph Status: Acute
[2018-01-26] MEDS: ceFAZolin 2 GM in Sodium Chloride 0.9% 100 ML IVPB SCH ×2 (13:08→21:23)
[2018-01-27] MEDS: ceFAZolin 2 GM in Sodium Chloride 0.9% 100 ML IVPB SCH ×3 (04:02→20:15)
[2018-01-27] MEDS: Levothyroxine 100 MCG TAB PO SCH (06:37)
[2018-01-27 06:38] LABS: BASO # 0.1 K/uL (0.0-0.2); BASO % 0.9 % (0.0-2.0); EOS # 0.4 K/uL (0.0-0.7); EOS % 7.8 % (0.0-4.0); HEMOGLOBIN 11.8 g/dL (12.0-16.0); LYMPH # 1.8 K/uL (1.0-4.3); LYMPH % 33.4 % (20.0-40.0); MEAN CELL VOLUME 97.2 fl (81.0-99.0); MEAN CORPUSCULAR HEMOGLOBIN 33.5 pg (27.0-31.0); MEAN CORPUSCULAR HGB CONC 34.5 g/dL (33.0-37.0); MEAN PLATELET VOLUME 8.3 fl (7.2-11.7); MONO # 0.6 K/uL (0.0-0.8); MONO % 11.2 % (0.0-10.0); NEUT # 2.5 K/uL (1.8-7.0); NEUT % 46.7 % (50.0-75.0); NRBC % 0.1 % (0.0-0.0); RBC 3.51 Mil/uL (3.80-5.20); RED CELL DISTRIBUTION WIDTH 11.9 % (11.5-14.5); WHITE BLOOD COUNT 5.3 K/uL (4.8-10.8)
[2018-01-27 06:41] LABS: ALB/GLOB RATIO 1.1 (1.0-2.1); ALBUMIN 3.6 g/dL (3.5-5.0); ALT/SGPT 35 U/L (9-52); AST/SGOT 47 U/L (14-36); BLOOD UREA NITROGEN 7 mg/dl (7-17); GFR NON-AFRICAN AMERICAN > 60
[2018-01-27] MEDS: Enoxaparin 40 mg Syringe SC SCH (08:28)
--- NOTE | 2018-01-27 09:21 | CP.PCM.PN ---
Subjective - Date & Time of Evaluation Date of Evaluation: 01/27/18 Time of Evaluation: 09:19 - Subjective Subjective: pt doing well. no f/c, n/v/d. bw noted. pain controlled w/ current meds. per sw no tcu benefits. wond vac as per plastics-per pt not much dc from vac x 24h toes still swollen, distalm pms intact. rash to knee area r leg diminished Objective - Vital Signs/Intake and Output Vital Signs (last 24 hours): Temp Pulse Resp BP Pulse Ox 98.6 F 63 20 119/81 99 01/27/18 08:27 01/27/18 08:27 01/27/18 08:27 01/27/18 08:27 01/27/18 08:27 Intake and Output: 01/27/18 01/27/18 06:59 18:59 Intake Total 2039 Balance 2039 - Medications Medications: Current Medications Acetaminophen (Tylenol 325mg Tab) 650 mg PO Q4 PRN PRN Reason: Fever >100.4 F Acetaminophen (Tylenol 325mg Tab) 650 mg PO Q6 PRN PRN Reason: Pain, moderate (4-7) Last Admin: 01/27/18 08:28 Dose: 650 mg Diazepam (Valium) 10 mg PO Q6 PRN PRN Reason: Muscle spasm Last Admin: 01/26/18 21:18 Dose: 10 mg Enoxaparin Sodium (Lovenox) 40 mg SC DAILY [facility]; Protocol Last Admin: 01/27/18 08:28 Dose: 40 mg Hydromorphone HCl (Dilaudid) 1.5 mg IVP Q3 PRN PRN Reason: Pain, severe (8-10) Last Admin: 01/26/18 09:58 Dose: 1.5 mg Hydromorphone HCl (Dilaudid 0.2 Mg/Ml Crotch Breaker) 0 mg IV PRN PRN; Protocol PRN Reason: Pain, moderate (4-7) Last Admin: 01/26/18 20:19 Dose: 6 mg Lactated Ringer's (Lactated Ringer's) 1,000 mls @ 100 mls/hr IV .Q10H [facility] Last Admin: 01/25/18 20:19 Dose: 100 mls/hr Lactated Ringer's (Lactated Ringer's) 1,000 mls @ 200 mls/hr IV .Q5H [facility] Last Admin: 01/26/18 07:11 Dose: 200 mls/hr Cefazolin Sodium 2 gm/ Sodium (Chloride) 100 mls @ 100 mls/hr IVPB Q8@0400,1200,2000 [facility]; Protocol Last Admin: 01/27/18 04:02 Dose: 100 mls/hr Levothyroxine Sodium (Synthroid) 100 mcg PO DAILY@0630 [facility] Last Admin: 01/27/18 06:37 Dose: 100 mcg Ondansetron HCl (Zofran Inj) 4 mg IVP Q8 PRN PRN Reason: Nausea/Vomiting Pregabalin (Lyrica) 75 mg PO BID [facility] Last Admin: 01/27/18 08:28 Dose: 75 mg - Labs Labs: 01/27/18 05:55 01/27/18 05:55 PT 11.8 Seconds (9.8-13.1) 01/23/18 05:45 INR 1.0 01/23/18 05:45 APTT 30.3 Seconds (25.6-37.1) 01/23/18 05:45 - Constitutional Appears: Well, Non-toxic, No Acute Distress - Head Exam Head Exam: ATRAUMATIC, NORMAL INSPECTION, NORMOCEPHALIC - Eye Exam Eye Exam: EOMI, Normal appearance, PERRL Pupil Exam: NORMAL ACCOMODATION, PERRL - ENT Exam ENT Exam: Mucous Membranes Moist, Normal Exam - Neck Exam Neck Exam: Full ROM, Normal Inspection. absent: Lymphadenopathy - Respiratory Exam Respiratory Exam: Clear to Ausculation Bilateral, NORMAL BREATHING PATTERN - Cardiovascular Exam Cardiovascular Exam: REGULAR RHYTHM, RRR, +S1, +S2. absent: Murmur - GI/Abdominal Exam GI & Abdominal Exam: Soft, Normal Bowel Sounds. absent: Tenderness - Extremities Exam Extremities Exam: Full ROM, Normal Capillary Refill, Normal Inspection. absent: Joint Swelling, Pedal Edema Additional comments: r foot toes swollen, distal pms intact, rash/bruising diminished - Back Exam Back Exam: NORMAL INSPECTION - Neurological Exam Neurological Exam: Abnormal Gait, Alert, Awake, CN II-XII Intact, Oriented x3 - Psychiatric Exam Psychiatric exam: Normal Affect, Normal Mood - Skin Skin Exam: Dry, Intact, Normal Color, Warm Assessment and Plan (1) DVT prophylaxis Status: Acute (2) Fracture of tibia and fibula Status: Acute (3) Hypothyroid Status: Acute - Assessment and Plan (Free Text) Assessment: 1) DVT prophylaxis Assessment & Plan: scd nad ae hose lovenox Status: Acute (2) Fracture of tibia and fibula Assessment & Plan: pod 1 s/p orif tib fib w/ vascular and plstic helping ortho close extensive pain requiring pain managmeent consult approx 1h of direct/indirect time w/ pt dialudid prn along w/ dilaudid scaffold worker ordered valium ordered nad incr to provide aide of muscle spasms distal pms intact at present, pulses present and opllar 2+ per dr villarreal fascia was not closed which would prevention formation of compartment syndrome. cont neuro checks cont elevation/ice ortho, pain maangement, vasclar nad plastics consults to continue titrate off scaffold worker/iv narcotics Status: Acute (3) Hypothyroid Assessment & Plan: titrate synthroid Status: Acute for placement
--- NOTE | 2018-01-27 09:52 | PN ---
DATE: 01/24/2018 SUBJECTIVE: This is a 37-year-old female patient who had a reduction of right ankle fracture, right femoral arteriogram, and states that she is having pain at the operative site and did not complain of pain in her toes. PHYSICAL EXAMINATION: GENERAL: The patient was more comfortable than she was preop. EXTREMITIES: Examination of her feet revealed pink toes with good capillary refill and good Doppler signals. IMPRESSION: Status post right ankle fracture reduction, right femoral arteriogram. No evidence of vascular compromise. Recommend continued postop rehabilitation. Dieter Rich MD MTDD
[2018-01-27] MEDS: Lactated Ringer's 1,000 ML IV SCH ×2 (10:30→23:00)
--- NOTE | 2018-01-27 11:40 | CP.PCM.PN ---
Subjective - Date & Time of Evaluation Date of Evaluation: 01/27/18 Time of Evaluation: 10:00 - Subjective Subjective: 37 yo female S/P ORIF right Tib/Fib fracture. Patient contented with current pain management. She is on SCREWHEAD STONER AND POLISHER, Tyleno, Lyrica and Valium at night. She will start rehabilitation soon and possible transfer or discharge tomorrow. Objective - Vital Signs/Intake and Output Vital Signs (last 24 hours): Temp Pulse Resp BP Pulse Ox 98.6 F 63 20 119/81 99 01/27/18 08:27 01/27/18 08:27 01/27/18 08:27 01/27/18 08:27 01/27/18 08:27 Intake and Output: 01/27/18 01/27/18 06:59 18:59 Intake Total 2039 Balance 2039 - Medications Medications: Current Medications Acetaminophen (Tylenol 325mg Tab) 650 mg PO Q4 PRN PRN Reason: Fever >100.4 F Acetaminophen (Tylenol 325mg Tab) 650 mg PO Q6 PRN PRN Reason: Pain, moderate (4-7) Last Admin: 01/27/18 08:28 Dose: 650 mg Diazepam (Valium) 10 mg PO Q6 PRN PRN Reason: Muscle spasm Last Admin: 01/26/18 21:18 Dose: 10 mg Enoxaparin Sodium (Lovenox) 40 mg SC DAILY [facility]; Protocol Last Admin: 01/27/18 08:28 Dose: 40 mg Hydromorphone HCl (Dilaudid) 1.5 mg IVP Q3 PRN PRN Reason: Pain, severe (8-10) Last Admin: 01/26/18 09:58 Dose: 1.5 mg Cefazolin Sodium 2 gm/ Sodium (Chloride) 100 mls @ 100 mls/hr IVPB Q8@0400,1 200,2000 [facility]; Protocol Last Admin: 01/27/18 04:02 Dose: 100 mls/hr Lactated Ringer's (Lactated Ringer's) 1,000 mls @ 75 mls/hr IV .[id number] [facility] Levothyroxine Sodium (Synthroid) 100 mcg PO DAILY@0630 [facility] Last Admin: 01/27/18 06:37 Dose: 100 mcg Ondansetron HCl (Zofran Inj) 4 mg IVP Q8 PRN PRN Reason: Nausea/Vomiting Pregabalin (Lyrica) 75 mg PO BID [facility] Last Admin: 01/27/18 08:28 Dose: 75 mg - Labs Labs: 01/27/18 05:55 01/27/18 05:55 PT 11.8 Seconds (9.8-13.1) 01/23/18 05:45 INR 1.0 01/23/18 05:45 APTT 30.3 Seconds (25.6-37.1) 01/23/18 05:45 Assessment and Plan - Assessment and Plan (Free Text) Assessment: S/P ORIF right Tib/Fib fracture, POD#4. Pain under control. Plan: Will discontinue SCREWHEAD STONER AND POLISHER and start with oral pain med. Percocet 75mg/325mg tab. po Q6H prn for moderate pain PS=4-7/10 Continue with Lyrica Decrease Tylenol to 325mg po Q6H prn for mild pain PS=2-3/[address] Barrera
[2018-01-27] MEDS ORDERED: oxyCODONE 5 mg Immediate Release Tab PO PRN ×2 (11:56→12:59)
--- NOTE | 2018-01-27 15:20 | CP.PCM.PN ---
Subjective - Date & Time of Evaluation Date of Evaluation: 01/27/18 Time of Evaluation: 15:16 - Subjective Subjective: Pt is POD 4 after R ankle ORIF for ankle fx. Her pain has been controlled with IV pain meds. Primary team is transitioning patient to rehab and would like po pain meds for patient. Her pain has been VAS 3-5/10 sharp achy pain over randolph rgical site. Pain has limited radiation. Pain is worse with movement and better with rest. Pt was extremely active before injury and is anxious to get back to exercising. Objective - Vital Signs/Intake and Output Vital Signs (last 24 hours): Temp Pulse Resp BP Pulse Ox 98.6 F 63 20 119/81 99 01/27/18 08:27 01/27/18 08:27 01/27/18 08:27 01/27/18 08:27 01/27/18 08:27 Intake and Output: 01/27/18 01/27/18 06:59 18:59 Intake Total 2039 Balance 2039 - Medications Medications: Current Medications Diazepam (Valium) 10 mg PO Q6 PRN PRN Reason: Muscle spasm Last Admin: 01/26/18 21:18 Dose: 10 mg Enoxaparin Sodium (Lovenox) 40 mg SC DAILY [facility]; Protocol Last Admin: 01/27/18 08:28 Dose: 40 mg Gabapentin (Neurontin) 300 mg PO BID [facility] Hydromorphone HCl (Dilaudid) 2 mg IVP QD6 PRN PRN Reason: Pain, severe (8-10) Cefazolin Sodium 2 gm/ Sodium (Chloride) 100 mls @ 100 mls/hr IVPB Q8@0400,1200,2000 [facility]; Protocol Last Admin: 01/27/18 13:09 Dose: 100 mls/hr Lactated Ringer's (Lactated Ringer's) 1,000 mls @ 75 mls/hr IV .[id number] [facility] Ketorolac Tromethamine (Toradol) 30 mg IVP Q6 [facility] Stop: 01/28/18 10:01 Levothyroxine Sodium (Synthroid) 100 mcg PO DAILY@0630 [facility] Last Admin: 01/27/18 06:37 Dose: 100 mcg Ondansetron HCl (Zofran Inj) 4 mg IVP Q8 PRN PRN Reason: Nausea/Vomiting Oxycodone HCl (Oxycontin Extended Release Tab) 30 mg PO Q12 [facility] Stop: 01/30/18 21:01 Oxycodone/Acetaminophen (Percocet 5/325 Mg Tab) 2 tab PO Q4 PRN PRN Reason: Pain, moderate (4-7) Stop: 01/30/18 15:14 - Labs Labs: 01/27/18 05:55 01/27/18 05:55 PT 11.8 Seconds (9.8-13.1) 01/23/18 05:45 INR 1.0 01/23/18 05:45 APTT 30.3 Seconds (25.6-37.1) 01/23/18 05:45 - Constitutional Appears: Well - Extremities Exam Additional comments: right leg and ankle in cast, c/d/i decreased ROM of RLE pt can wiggle toes sensation decreased to pin prick, and soft touch Assessment and Plan - Assessment and Plan (Free Text) Assessment: 37yF POD 4 s/p ORIF right ankle. Plan: 1. PT 2. Surgery and podiatry should follow up with patient 3. PO meds ordered 4. transition to rehab 5. Care as per primary team
[2018-01-27] MEDS: Oxycodone/Acetaminophen 5/325 mg Tab PO PRN (18:31)
[2018-01-27] MEDS: oxyCODONE 10 mg ER Tab (oxyCONTIN) PO SCH (20:14)
--- NOTE | 2018-01-27 22:55 | CP.PCM.PN ---
Subjective - Date & Time of Evaluation Date of Evaluation: 01/25/18 Time of Evaluation: 09:00 - Subjective Subjective: Pt lying in bed, comfortable, rates R ankle / leg pain 07/27. Denies CP, SOB, POSADAS, fevers, chills, N&V, numbness, or tingling, calf pain. Objective - Vital Signs/Intake and Output Vital Signs (last 24 hours): Temp Pulse Resp BP Pulse Ox 99.2 F 79 18 147/86 95 01/27/18 17:00 01/27/18 17:00 01/27/18 17:00 01/27/18 17:00 01/27/18 17:00 - Medications Medications: Current Medications Acetaminophen (Tylenol 325mg Tab) 650 mg PO Q6 PRN PRN Reason: Pain, Mild (1-3) Diazepam (Valium) 10 mg PO Q6 PRN PRN Reason: Muscle spasm Last Admin: 01/27/18 21:34 Dose: 10 mg Enoxaparin Sodium (Lovenox) 40 mg SC DAILY [facility]; Protocol Last Admin: 01/27/18 08:28 Dose: 40 mg Gabapentin (Neurontin) 300 mg PO BID [facility] Last Admin: 01/27/18 16:49 Dose: 300 mg Hydromorphone HCl (Dilaudid) 2 mg IVP Q6 PRN PRN Reason: Pain, severe (8-10) Cefazolin Sodium 2 gm/ Sodium (Chloride) 100 mls @ 100 mls/hr IVPB Q8@0400 ,1200,2000 [facility]; Protocol Last Admin: 01/27/18 20:15 Dose: 100 mls/hr Lactated Ringer's (Lactated Ringer's) 1,000 mls @ 75 mls/hr IV .[id number] [facility] Last Admin: 01/27/18 10:30 Dose: 75 mls/hr Ketorolac Tromethamine (Toradol) 30 mg IVP Q6 [facility] Stop: 01/28/18 10:01 Last Admin: 01/27/18 21:12 Dose: 30 mg Levothyroxine Sodium (Synthroid) 100 mcg PO DAILY@0630 [facility] Last Admin: 01/27/18 06:37 Dose: 100 mcg Ondansetron HCl (Zofran Inj) 4 mg IVP Q8 PRN PRN Reason: Nausea/Vomiting Oxycodone HCl (Oxycontin Extended Release Tab) 30 mg PO Q12 [facility] Stop: 01/30/18 21:01 Last Admin: 01/27/18 20:14 Dose: 30 mg Oxycodone/Acetaminophen (Percocet 5/325 Mg Tab) 2 tab PO Q4 PRN PRN Reason: Pain, moderate (4-7) Stop: 01/30/18 15:14 Last Admin: 01/27/18 18:31 Dose: 2 tab - Labs Labs: 01/27/18 05:55 01/27/18 05:55 PT 11.8 Seconds (9.8-13.1) 01/23/18 05:45 INR 1.0 01/23/18 05:45 APTT 30.3 Seconds (25.6-37.1) 01/23/18 05:45 - Extremities Exam Additional comments: RIght Lower Extremity: Leg/ankle: + swelling along dorsal foot/ toes/ ankle, skin intact, VAC dressing intact at medial and lateral ankle/leg wounds no warmth/errythema full ROM at hip/knee/toes without pain, + pain localized to the ankle with carla on of RLE - pain with passive flex/ext toes +5/5 strength hip flex/ext, knee flex/ext, toes up & down sensory intact L2-S1, DPN/TN/SPN/SN, lateral and medial aspect all toes 2+ DP and 2+ PT, strong doppler signal at DP & PT BCR all toes Calves soft/nt B/L Left Lower Extremity: - ttp, - swelling/warmth/errythema, skin intact, full ROM at all joints w/o pain +5/5 strength hip flex/ext, knee flex/ext, ankle DF/PF, toes up & down sensory intact L2-S1, DPN/TN/SPN/SN, lateral and medial aspect all toes 2+ DP and 2+ PT BCR all toes Assessment and Plan (1) Fracture of tibia and fibula Assessment & Plan: 37 yo Female s/p fall while excercising 01/20/18 Dx= Right leg/ankle: #1 displaced comminuted/oblique/ segmental distal tibial shaft fx #2 displaced segmental/oblique distal fibula/ lateral mal fx #3 displaced posterior mal fx #4 non-displaced medial mal fx #5 partial syndesmotic tear #6 entrapped anterior tibial artery (entrapped within tibial shaft fx) #7 underlying possible vascular/ arterial inflamatory dz (Reynaud's?) s/p ORIF distal tibial shaft fx, ORIF Trimal fx, plastics closure/allodrem graft placement at medial and lateral HW/ VAC assisted closure over closed wounds intra-operative angiogram and salvage of anterior tibial artery 01/23/18 POD#2 PLAN: R leg/ankle: -still has significant swelling, recommend continued ice and elevation above level of hear, pt has significant discomfort trying to maintain this, encouraged to elevate as much as possible -requiring dilaudid FURNACE DOOR TENDER for pain control -no pain with passive flex/ext toes and fascia not closed during wound closure, not likely compartment syndrome at this time -strict NWB RLE -physical therapy= ambulation with crtuches, transfers, OOB as much as possible -wound care per Plastics consult/ service/ Dr. 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 Dieter Rich input appreciated, intraop angio showed that entire arterial tree patent with good flow, there was evidence of spasm seen -she has 3 flights at home and lives alone with family in [place], she will need placement in TCU / [facility] for a period of time after initial 1 week post-op wound evaluation by plastics is acceptable ideally, she is placed in TCU at [facility] so that the multi-specialty approach to her care can continue, I do not feel comfortable with the pt being transferred to outside [facility] where the team cannot continue to monitor her progress as closely as we are now -she will need to remain inpt at [facility] until initial wound check by plastics confirms good wound healing and progress with no evidence of issues developing -will follow -medical care per primary medical team -DVT proph -case management/ SW consult for placement -please contact me with any questions, concerns, updates at [phone] Thank you for allowing me to contribute to the care of your patient. Marisol Metcalf MD Orthopedic Surgery Status: Acute
[2018-01-28] MEDS: ceFAZolin 2 GM in Sodium Chloride 0.9% 100 ML IVPB SCH ×3 (04:36→20:18)
[2018-01-28] MEDS: Lactated Ringer's 1,000 ML IV SCH ×2 (04:36→20:23)
[2018-01-28] MEDS: Levothyroxine 100 MCG TAB PO SCH (06:17)
[2018-01-28 06:46] LABS: BASO # 0.1 K/uL (0.0-0.2); BASO % 1.6 % (0.0-2.0); EOS # 0.4 K/uL (0.0-0.7); EOS % 7.2 % (0.0-4.0); LYMPH # 1.9 K/uL (1.0-4.3); LYMPH % 35.3 % (20.0-40.0); MEAN CELL VOLUME 96.8 fl (81.0-99.0); MEAN CORPUSCULAR HEMOGLOBIN 32.6 pg (27.0-31.0); MEAN CORPUSCULAR HGB CONC 33.7 g/dL (33.0-37.0); MEAN PLATELET VOLUME 7.9 fl (7.2-11.7); MONO # 0.6 K/uL (0.0-0.8); MONO % 11.4 % (0.0-10.0); NEUT # 2.4 K/uL (1.8-7.0); NEUT % 44.5 % (50.0-75.0); RBC 3.69 Mil/uL (3.80-5.20); RED CELL DISTRIBUTION WIDTH 11.8 % (11.5-14.5); WHITE BLOOD COUNT 5.3 K/uL (4.8-10.8)
[2018-01-28 07:04] LABS: ALB/GLOB RATIO 1.3 (1.0-2.1); ALT/SGPT 24 U/L (9-52); AST/SGOT 40 U/L (14-36); BLOOD UREA NITROGEN 11 mg/dl (7-17); CALCIUM 9.3 mg/dL (8.4-10.2); GFR NON-AFRICAN AMERICAN > 60
[2018-01-28] MEDS: Oxycodone/Acetaminophen 5/325 mg Tab PO PRN (07:31)
--- NOTE | 2018-01-28 08:07 | CP.PCM.PN ---
Subjective - Date & Time of Evaluation Date of Evaluation: 01/28/18 Time of Evaluation: 08:07 - Subjective Subjective: pt doing well. distal pms intact, still w/ foot swollen. bw noted. consults appriciated. still w/ wound vac pt is concerned about cost of inpatient stay, will coordinate w/ surgery and bilingual social worker Objective - Vital Signs/Intake and Output Vital Signs (last 24 hours): Temp Pulse Resp BP Pulse Ox 98.1 F 68 20 109/70 99 01/27/18 23:42 01/27/18 23:42 01/27/18 23:42 01/27/18 23:42 01/27/18 23:42 - Medications Medications: Current Medications Acetaminophen (Tylenol 325mg Tab) 650 mg PO Q6 PRN PRN Reason: Pain, Mild (1-3) Last Admin: 01/28/18 05:15 Dose: 650 mg Diazepam (Valium) 10 mg PO Q6 PRN PRN Reason: Muscle spasm Last Admin: 01/27/18 21:34 Dose: 10 mg Enoxaparin Sodium (Lovenox) 40 mg SC DAILY [facility]; Protocol Last Admin: 01/27/18 08:28 Dose: 40 mg Gabapentin (Neurontin) 300 mg PO BID [facility] Last Admin: 01/27/18 16:49 Dose: 300 mg Hydromorphone HCl (Dilaudid) 2 mg IVP Q6 PRN PRN Reason: Pain, severe (8-10) Cefazolin Sodium 2 gm/ Sodium (Chloride) 100 mls @ 100 mls/hr IVPB Q8@0400,1200,2000 [facility]; Protocol Last Admin: 01/28/18 04:36 Dose: 100 mls/hr Lactated Ringer's (Lactated Ringer's) 1,000 mls @ 75 mls/hr IV .[id number] [facility] Last Admin: 01/28/18 04:36 Dose: 75 mls/hr Ketorolac Tromethamine (Toradol) 30 mg IVP Q6 [facility] Stop: 01/28/18 10:01 Last Admin: 01/28/18 04:35 Dose: 30 mg Levothyroxine Sodium (Synthroid) 100 mcg PO DAILY@0630 [facility] Last Admin: 01/28/18 06:17 Dose: 100 mcg Ondansetron HCl (Zofran Inj) 4 mg IVP Q8 PRN PRN Reason: Nausea/Vomiting Oxycodone HCl (Oxycontin Extended Release Tab) 30 mg PO Q12 [facility] Stop: 01/30/18 21:01 Last Admin: 01/27/18 20:14 Dose: 30 mg Oxycodone/Acetaminophen (Percocet 5/325 Mg Tab) 2 tab PO Q4 PRN PRN Reason: Pain, moderate (4-7) Stop: 01/30/18 15:14 Last Admin: 01/28/18 07:31 Dose: 2 tab - Labs Labs: 01/28/18 05:45 01/28/18 05:45 PT 11.8 Seconds (9.8-13.1) 01/23/18 05:45 INR 1.0 01/23/18 05:45 APTT 30.3 Seconds (25.6-37.1) 01/23/18 05:45 - Constitutional Appears: Well, Non-toxic, No Acute Distress - Head Exam Head Exam: ATRAUMATIC, NORMAL INSPECTION, NORMOCEPHALIC - Eye Exam Eye Exam: EOMI, Normal appearance, PERRL Pupil Exam: NORMAL ACCOMODATION, PERRL - ENT Exam ENT Exam: Mucous Membranes Moist, Normal Exam - Neck Exam Neck Exam: Full ROM, Normal Inspection. absent: Lymphadenopathy - Respiratory Exam Respiratory Exam: Clear to Ausculation Bilateral, NORMAL BREATHING PATTERN - Cardiovascular Exam Cardiovascular Exam: REGULAR RHYTHM, RRR, +S1, +S2. absent: Murmur - GI/Abdominal Exam GI & Abdominal Exam: Soft, Normal Bowel Sounds. absent: Tenderness - Exam Bimanual exam: NORMAL BIMANUAL EXAM - Extremities Exam Extremities Exam: Full ROM, Normal Capillary Refill, Normal Inspection. absent: Joint Swelling, Pedal Edema - Back Exam Back Exam: NORMAL INSPECTION - Neurological Exam Neurological Exam: Abnormal Gait, Alert, Awake, CN II-XII Intact, Oriented x3 Additional comments: gait normal w/ crutches - Psychiatric Exam Psychiatric exam: Normal Affect, Normal Mood - Skin Skin Exam: Dry, Intact, Normal Color, Warm Assessment and Plan (1) DVT prophylaxis Status: Acute (2) Fracture of tibia and fibula Status: Acute (3) Hypothyroid Status: Acute - Assessment and Plan (Free Text) Assessment: 1) DVT prophylaxis Assessment & Plan: scd nad ae hose lovenox Status: Acute (2) Fracture of tibia and fibula Assessment & Plan: pt off account representative ancef to continue distal pms intact, foot swollen po pain control wond vac remains Status: Acute (3) Hypothyroid Assessment & Plan: titrate synthroid Status: Acute for placement
[2018-01-28] MEDS: Enoxaparin 40 mg Syringe SC SCH (08:51)
[2018-01-28] MEDS: oxyCODONE 10 mg ER Tab (oxyCONTIN) PO SCH ×2 (08:52→21:20)
--- NOTE | 2018-01-28 09:00 | CON ---
DATE: 01/22/2018 DOCTOR REQUESTING: Marisol Metcalf MD REASON FOR REQUEST: Fracture of the right ankle. REPORT OF CONSULTATION: This 37_year_old female patient suffered a fracture of the right ankle while at gym. The patient is presently complaining of pain in the right foot and there was concern as to the circulation in her right lower extremity. PAST MEDICAL HISTORY: Unremarkable. The patient denies any coronary artery disease, respiratory diseases, neurologic diseases, or ____ diseases. FAMILY HISTORY: Noncontributory. SURGICAL HISTORY: Unremarkable. MEDICATIONS: None. SOCIAL HISTORY: The patient is self employed. Does not drink or smoke and exercises regularly. REVIEW OF SYSTEMS: SKIN: No acne, ulcers, dermatitis, or eczema. HEAD AND NECK: No migraines, nosebleeds, double vision, sore throat, or hearing disorders. RESPIRATORY: No cough, cold, hemoptysis. No asthma or emphysema. CARDIOVASCULAR: No shortness of breath, chest pain, peripheral edema. GASTROINTESTINAL: No abdominal pain, nausea, vomiting, diarrhea, or blood in the stools. GENITOURINARY: No dysuria, hematuria, or nocturia. MUSCULOSKELETAL: See history of present illness. NEUROLOGIC: No seizures, paralysis, problem with swallowing or speech. ALLERGIES: NONE KNOWN. PHYSICAL EXAMINATION: GENERAL: Reveals a pleasant young patient in bed, right leg elevated and in fairly moderate pain. HEAD AND NECK: Neck supple, no masses. Mucous membranes pink. No jaundice. CHEST: No masses. Equal expansion. LUNGS: Clear, good air entry. Pulse, good volume, regular rate, equal. CARDIOVASCULAR: Heart sounds 1 and 2, no murmurs. ABDOMEN: Soft, flat, nontender, no masses. THYROID: No enlargement, no masses. LYMPHATIC: No palpable lymphadenopathy. MUSCULOSKELETAL AND VASCULAR: The patient's right lower extremity was elevated, loosely wrapped. The right foot was cold because of ice packs placed around her ankle; however, there were no ulcers. No gangrene. There is good capillary refill and there was a normal triphasic signal heard in the dorsalis pedis. DIAGNOSIS: Fractured right ankle. RECOMMENDATIONS: The patient's right lower extremity is at no risk at the present time of an acute vascular insult and proposed reduction of fractures should proceed as planned. Dieter Rich MD [facility] # [id number]
--- NOTE | 2018-01-28 09:03 | OP ---
PROCEDURE DATE: 01/23/2018 PREOPERATIVE DIAGNOSIS: Fractured right ankle. POSTOPERATIVE DIAGNOSIS: Fractured right ankle. OPERATIVE PROCEDURE: Right femoral arteriogram. SURGEON: Dieter Rich MD. ANESTHESIA: General. INDICATIONS: The patient who suffered a fracture of her right ankle and had an abnormal CT angiogram despite normal Doppler signals was having the fracture reduced in the operating room. At the time of the operation, Doppler signals were heard in the anterior tibial distal to the fracture site and these were normal and triphasic. DESCRIPTION OF PROCEDURE: The patient's right groin was prepped and draped in the usual sterile manner. The right common femoral artery was punctured with a micropuncture set and the dye was injected through the micropuncture set and serial distal subtracted angiograms were done, revealed normal popliteal trifurcation and there was visualization of the dorsalis pedis in the foot. After completion of the arteriogram, the catheter was removed while maintaining pressure on the right groin. Dieter Rich MD MTDD
--- NOTE | 2018-01-28 15:08 | CP.PCM.PN ---
Subjective - Date & Time of Evaluation Date of Evaluation: 01/28/18 Time of Evaluation: 11:30 - Subjective Subjective: Patient seen and examined at bedside comfortable. Pain is now controlled with current PO pain regiment set by pain management. Able to tolerate PT ambulation with crutches. No new complaints. Denies CP/SOB/fever/POSADAS. Objective - Vital Signs/Intake and Output Vital Signs (last 24 hours): Temp Pulse Resp BP Pulse Ox 97.9 F 77 20 112/54 L 94 L 01/28/18 08:51 01/28/18 08:51 01/28/18 08:51 01/28/18 08:51 01/28/18 08:51 - Medications Medications: Current Medications Acetaminophen (Tylenol 325mg Tab) 650 mg PO Q6 PRN PRN Reason: Pain, Mild (1-3) Last Admin: 01/28/18 05:15 Dose: 650 mg Diazepam (Valium) 10 mg PO Q6 PRN PRN Reason: Muscle spasm Last Admin: 01/27/18 21:34 Dose: 10 mg Enoxaparin Sodium (Lovenox) 40 mg SC DAILY [facility]; Protocol Last Admin: 01/28/18 08:51 Dose: 40 mg Gabapentin (Neurontin) 300 mg PO BID [facility] Last Admin: 01/28/18 08:52 Dose: 300 mg Hydromorphone HCl (Dilaudid) 2 mg IVP Q6 PRN PRN Reason: Pain, severe (8-10) Last Admin: 01/28/18 09:03 Dose: 2 mg Cefazolin Sodium 2 gm/ Sodium (Chloride) 100 mls @ 100 mls/hr IVPB Q8@0400,1200,2000 [facility]; Protocol Last Admin: 01/28/18 12:46 Dose: 100 mls/hr Lactated Ringer's (Lactated Ringer's) 1,000 mls @ 75 mls/hr IV .[id number] [facility] Last Admin: 01/28/18 04:36 Dose: 75 mls/hr Levothyroxine Sodium (Synthroid) 100 mcg PO DAILY@0630 [facility] Last Admin: 01/28/18 06:17 Dose: 100 mcg Ondansetron HCl (Zofran Inj) 4 mg IVP Q8 PRN PRN Reason: Nausea/Vomiting Oxycodone HCl (Oxycontin Extended Release Tab) 30 mg PO Q12 [facility] Stop: 01/30/18 21:01 Last Admin: 01/28/18 08:52 Dose: 30 mg Oxycodone/Acetaminophen (Percocet 5/325 Mg Tab) 2 tab PO Q4 PRN PRN Reason: Pain, moderate (4-7) Stop: 01/30/18 15:14 Last Admin: 01/28/18 07:31 Dose: 2 tab - Labs Labs: 01/28/18 05:45 01/28/18 05:45 PT 11.8 Seconds (9.8-13.1) 01/23/18 05:45 INR 1.0 01/23/18 05:45 APTT 30.3 Seconds (25.6-37.1) 01/23/18 05:45 - Extremities Exam Additional comments: RLE: short leg posterior splint intact VAC intact @ 125 mmHg Large blister to anterolateral ankle, small blister anterior ankle moderate diffuse foot swelling sensation intact SP/DP/TN but diminished 2nd to swelling motor intact EHL/FHL DP/PT pulses palpable comps soft NT Assessment and Plan (1) Fracture of tibia and fibula Assessment & Plan: POD#5 s/p ORIF distal tibial shaft/distal fibular shaft/posterior malleolus -PT/OT NWB RLE -VAC as per Dr. Flynn -maintain posterior splint -pain control as per pain mgmt -DVT ppx -ice/elevate for foot swelling -orthopedically stable for transfer to TCU -above d/w Dr. Metcalf in agreement Status: Acute
--- NOTE | 2018-01-28 20:14 | CP.PCM.PN ---
Subjective - Date & Time of Evaluation Date of Evaluation: 01/28/18 Time of Evaluation: 19:57 - Subjective Subjective: Patient is doing OK, has been doing therapy and is able to move from bed to comode. Is walking with crutches, no weight baring. Occasional cramps, but otherwise starting to have a little less pain. Off TIP FIXER. Has noticed a decrease in electrical shocky pains and burning since starting Lyrica on Friday. Objective - Vital Signs/Intake and Output Vital Signs (last 24 hours): Temp Pulse Resp BP Pulse Ox 97.8 F 84 18 137/98 H 97 01/28/18 16:39 01/28/18 16:39 01/28/18 16:39 01/28/18 16:39 01/28/18 16:39 - Medications Medications: Current Medications Acetaminophen (Tylenol 325mg Tab) 650 mg PO Q6 PRN PRN Reason: Pain, Mild (1-3) Last Admin: 01/28/18 05:15 Dose: 650 mg Diazepam (Valium) 10 mg PO Q6 PRN PRN Reason: Muscle spasm Last Admin: 01/27/18 21:34 Dose: 10 mg Enoxaparin Sodium (Lovenox) 40 mg SC DAILY [facility]; Protocol Last Admin: 01/28/18 08:51 Dose: 40 mg Gabapentin (Neurontin) 300 mg PO BID [facility] Last Admin: 01/28/18 17:44 Dose: 300 mg Hydromorphone HCl (Dilaudid) 2 mg IVP Q6 PRN PRN Reason: Pain, severe (8-10) Last Admin: 01/28/18 15:22 Dose: 2 mg Cefazolin Sodium 2 gm/ Sodium (Chloride) 100 mls @ 100 mls/hr IVPB Q8@0400,1200,2000 [facility]; Protocol Last Admin: 01/28/18 12:46 Dose: 100 mls/hr Lactated Ringer's (Lactated Ringer's) 1,000 mls @ 75 mls/hr IV .[id number] [facility] Last Admin: 01/28/18 04:36 Dose: 75 mls/hr Levothyroxine Sodium (Synthroid) 100 mcg PO DAILY@0630 [facility] Last Admin: 01/28/18 06:17 Dose: 100 mcg Ondansetron HCl (Zofran Inj) 4 mg IVP Q8 PRN PRN Reason: Nausea/Vomiting Oxycodone HCl (Oxycontin Extended Release Tab) 30 mg PO Q12 [facility] Stop: 01/30/18 21:01 Last Admin: 01/28/18 08:52 Dose: 30 mg Oxycodone/Acetaminophen (Percocet 5/325 Mg Tab) 2 tab PO Q4 PRN PRN Reason: Pain, moderate (4-7) Stop: 01/30/18 15:14 Last Admin: 01/28/18 07:31 Dose: 2 tab Pregabalin (Lyrica) 75 mg PO BID [facility] - Labs Labs: 01/28/18 05:45 01/28/18 05:45 PT 11.8 Seconds (9.8-13.1) 01/23/18 05:45 INR 1.0 01/23/18 05:45 APTT 30.3 Seconds (25.6-37.1) 01/23/18 05:45 - Extremities Exam Additional comments: Dressings removed. Incision to the medial and lateral right leg are intact. There is no erythema, cellulitis, or hematoma. There are 2superficial blisters 3 cm x 4 cm to the dorsolateral aspect of the ankle at the distal aspect of the lateral incision. The other blister is 2 cm x 2 cm to the distal asepct of the medial incision. The toes are warm, there is good cap refil under 2 sec. There is a dopplerable dorsalis pedis and posterior tibital artery even after wound VAC reapplied. - Additional Findings Additional findings: Procedure: Wound VAC to both incisions removed and a new clean incisional VAC applied and placed on 125 mm Hg. Seal intact after conclusion. Posterior splint reapplied with an cyril wrap. Assessment and Plan - Assessment and Plan (Free Text) Assessment: 37 year old female with comminuted right tib-fib fracture with significant swelling and poor pain tolerance. She has good circulation present. The wound VAC seal is in tact and output is all serous. Plan: Continue with ice packs for the ankle area to help with swelling. Continue with elevation as tolerated for edema as well. May remove or loosen posterior splint as needed from my perspective although splint helps with preventing Achilles contracture in the face of the edema. Since she was doing well on Lyrica and it has a shorter onset, would continue w ith Lyrica 75mg BID rather than changing to Neurontin. Orders changed. She will most likely need to be on Lyrica for about 1-2 month and I will wean her off slowly as the neuropathic pain is under control. Plan to transfer patient to TCU tomorow and will plan to remove the VAC on Friday or Friday evening. No further VAC will be needed after next dressing change. No home VAC needed. May unplug VAC in order to snake tubing under sweat pants for easier ambulation. IV antibiotics for now.
[2018-01-29] MEDS: Lactated Ringer's 1,000 ML IV SCH (02:00)
[2018-01-29] MEDS: ceFAZolin 2 GM in Sodium Chloride 0.9% 100 ML IVPB SCH ×2 (04:19→12:14)
[2018-01-29] MEDS: Levothyroxine 100 MCG TAB PO SCH (05:44)
[2018-01-29] MEDS: Enoxaparin 40 mg Syringe SC SCH (08:31)
[2018-01-29] MEDS: oxyCODONE 10 mg ER Tab (oxyCONTIN) PO SCH ×2 (08:35→20:30)
--- NOTE | 2018-01-29 09:05 | CP.PCM.PN ---
Subjective - Date & Time of Evaluation Date of Evaluation: 01/29/18 Time of Evaluation: 09:02 - Subjective Subjective: pt doing well. sleeping comfortable. no f/c, n/vd/. r foot swollen pt c/o pain after plasticu srgery manipulated wound vac last night. distal pms intact. bw noted. consults appriciated. Objective - Vital Signs/Intake and Output Vital Signs (last 24 hours): Temp Pulse Resp BP Pulse Ox 98.3 F 59 L 20 110/45 L 95 01/29/18 09:01 01/29/18 09:01 01/29/18 09:01 01/29/18 09:01 01/29/18 09:01 Intake and Output: 01/29/18 01/29/18 06:59 18:59 Intake Total 900 Balance 900 - Medications Medications: Current Medications Acetaminophen (Tylenol 325mg Tab) 650 mg PO Q6 PRN PRN Reason: Pain, Mild (1-3) Last Admin: 01/28/18 05:15 Dose: 650 mg Cyclobenzaprine HCl (Flexeril) 5 mg PO Q8 PRN PRN Reason: Muscle spasm Diazepam (Valium) 10 mg PO Q6 PRN PRN Reason: Muscle spasm Last Admin: 01/28/18 23:25 Dose: 10 mg Enoxaparin Sodium (Lovenox) 40 mg SC DAILY [facility]; Protocol Last Admin: 01/29/18 08:31 Dose: 40 mg Hydromorphone HCl (Dilaudid) 4 mg PO Q4 PRN PRN Reason: Pain, severe (8-10) Cefazolin Sodium 2 gm/ Sodium (Chloride) 100 mls @ 100 mls/hr IVPB Q8@0 400,1200,2000 [facility]; Protocol Last Admin: 01/29/18 04:19 Dose: 100 mls/hr Lactated Ringer's (Lactated Ringer's) 1,000 mls @ 75 mls/hr IV .[id number] [facility] Last Admin: 01/29/18 02:00 Dose: Not Given Levothyroxine Sodium (Synthroid) 100 mcg PO DAILY@0630 [facility] Last Admin: 01/29/18 05:44 Dose: 100 mcg Ondansetron HCl (Zofran Inj) 4 mg IVP Q8 PRN PRN Reason: Nausea/Vomiting Oxycodone HCl (Oxycontin Extended Release Tab) 30 mg PO Q12 [facility] Stop: 01/30/18 21:01 Last Admin: 01/29/18 08:35 Dose: 30 mg Oxycodone/Acetaminophen (Percocet 5/325 Mg Tab) 2 tab PO Q4 PRN PRN Reason: Pain, moderate (4-7) Stop: 01/30/18 15:14 Last Admin: 01/28/18 07:31 Dose: 2 tab Pregabalin (Lyrica) 75 mg PO BID [facility] Last Admin: 01/29/18 08:35 Dose: 75 mg - Labs Labs: 01/28/18 05:45 01/28/18 05:45 PT 11.8 Seconds (9.8-13.1) 01/23/18 05:45 INR 1.0 01/23/18 05:45 APTT 30.3 Seconds (25.6-37.1) 01/23/18 05:45 Assessment and Plan (1) DVT prophylaxis Assessment & Plan: scd nad ae hose lovenox Status: Acute (2) Fracture of tibia and fibula Assessment & Plan: wound vac ntil fri/tu as per plastics for tcu today pain control plastics, ortho, pain management to follow Status: Acute (3) Hypothyroid Assessment & Plan: synthroid Status: Acute - Assessment and Plan (Free Text) Assessment: wond vac nad anbx until friday
--- NOTE | 2018-01-29 09:31 | CP.PCM.PN ---
Subjective - Date & Time of Evaluation Date of Evaluation: 01/29/18 Time of Evaluation: 08:00 - Subjective Subjective: Patient seen and examined at bedside. Reports increased pain following VAC change last night. No other complaints. Denies CP/SOB/fever. Objective - Vital Signs/Intake and Output Vital Signs (last 24 hours): Temp Pulse Resp BP Pulse Ox 98.3 F 59 L 20 110/45 L 95 01/29/18 09:01 01/29/18 09:01 01/29/18 09:01 01/29/18 09:01 01/29/18 09:01 Intake and Output: 01/29/18 01/29/18 06:59 18:59 Intake Total 900 Balance 900 - Medications Medications: Current Medications Acetaminophen (Tylenol 325mg Tab) 650 mg PO Q6 PRN PRN Reason: Pain, Mild (1-3) Last Admin: 01/28/18 05:15 Dose: 650 mg Cyclobenzaprine HCl (Flexeril) 5 mg PO Q8 PRN PRN Reason: Muscle spasm Diazepam (Valium) 10 mg PO Q6 PRN PRN Reason: Muscle spasm Last Admin: 01/28/18 23:25 Dose: 10 mg Enoxaparin Sodium (Lovenox) 40 mg SC DAILY [facility]; Protocol Last Admin: 01/29/18 08:31 Dose: 40 mg Hydromorphone HCl (Dilaudid) 4 mg PO Q4 PRN PRN Reason: Pain, severe (8-10) Cefazolin Sodium 2 gm/ Sodium (Chloride) 100 mls @ 100 mls/hr IVPB Q8@0400,1200,2000 [facility]; Protocol Last Admin: 01/29/18 04:19 Dose: 100 mls/hr Lactated Ringer's (Lactated Ringer's) 1,000 mls @ 75 mls/hr IV .[id number] [facility] Last Admin: 01/29/18 02:00 Dose: Not Given Levothyroxine Sodium (Synthroid) 100 mcg PO DAILY@0630 [facility] Last Admin: 01/29/18 05:44 Dose: 100 mcg Ondansetron HCl (Zofran Inj) 4 mg IVP Q8 PRN PRN Reason: Nausea/Vomiting Oxycodone HCl (Oxycontin Extended Release Tab) 30 mg PO Q12 [facility] Stop: 01/30/18 21:01 Last Admin: 01/29/18 08:35 Dose: 30 mg Oxycodone/Acetaminophen (Percocet 5/325 Mg Tab) 2 tab PO Q4 PRN PRN Reason: Pain, moderate (4-7) Stop: 01/30/18 15:14 Last Admin: 01/28/18 07:31 Dose: 2 tab Pregabalin (Lyrica) 75 mg PO BID [facility] Last Admin: 01/29/18 08:35 Dose: 75 mg - Labs Labs: 01/28/18 05:45 01/28/18 05:45 PT 11.8 Seconds (9.8-13.1) 01/23/18 05:45 INR 1.0 01/23/18 05:45 APTT 30.3 Seconds (25.6-37.1) 01/23/18 05:45 - Extremities Exam Additional comments: RLE: short leg posterior splint intact VAC intact @ 125 mmHg Large blister to anterolateral ankle evacuated, healing well moderate diffuse foot swelling sensation intact SP/DP/TN but diminished 2nd to swelling motor intact EHL/FHL DP/PT pulses palpable comps soft NT Assessment and Plan (1) Fracture of tibia and fibula Assessment & Plan: POD#6 s/p ORIF distal tibial shaft/distal fibular shaft/posterior malleolus -PT/OT NWB RLE -restart toradol Q6 x 3 doses for pain -DVT ppx -ice/elevate for foot swelling -orthopedically stable for transfer to TCU -above d/w Dr. Metcalf in agreement Status: Acute
[2018-01-29] MEDS: ceFAZolin IV 2 gm in Dextrose 2 GM/50 ML BAG IVPB SCH (20:31)
[2018-01-30] MEDS: ceFAZolin IV 2 gm in Dextrose 2 GM/50 ML BAG IVPB SCH ×3 (06:00→19:59)
[2018-01-30] MEDS: Levothyroxine 100 MCG TAB PO SCH (06:01)
[2018-01-30] MEDS: oxyCODONE 10 mg ER Tab (oxyCONTIN) PO SCH ×2 (09:04→21:01)
[2018-01-30] MEDS: Enoxaparin 40 mg Syringe SC SCH (09:06)
--- NOTE | 2018-01-30 13:32 | CP.PCM.PN ---
Subjective - Date & Time of Evaluation Date of Evaluation: 01/30/18 Time of Evaluation: 13:30 - Subjective Subjective: Patient states pain is still strong but she is now 4/10. Pain medication helps, but still not sleeping well. Denies CP/SOB/dizziness/tingling/numbness. She says she can't move her toes that much. Objective - Vital Signs/Intake and Output Vital Signs (last 24 hours): Temp Pulse Resp BP Pulse Ox 97.9 F 63 18 119/82 98 01/30/18 08:50 01/30/18 08:50 01/30/18 08:50 01/30/18 08:50 01/30/18 08:50 - Medications Medications: Current Medications Acetaminophen (Tylenol 325mg Tab) 650 mg PO Q6 PRN PRN Reason: Pain, Mild (1-3) Last Admin: 01/30/18 01:16 Dose: 650 mg Cyclobenzaprine HCl (Flexeril) 5 mg PO Q8 PRN PRN Reason: Muscle spasm Diazepam (Valium) 10 mg PO Q6 PRN PRN Reason: Muscle spasm Last Admin: 01/28/18 23:25 Dose: 10 mg Enoxaparin Sodium (Lovenox) 40 mg SC DAILY [facility]; Protocol Last Admin: 01/30/18 09:06 Dose: 40 mg Hydromorphone HCl (Dilaudid) 4 mg PO Q4 PRN PRN Reason: Pain, severe (8-10) Last Admin: 01/30/18 07:03 Dose: 4 mg Lactated Ringer's (Lactated Ringer's) 1,000 mls @ 75 mls/hr IV .[id number] [facility] Last Admin: 01/29/18 02:00 Dose: Not Given Cefazolin Sodium/Dextrose (Ancef Iv 2 Gm Duplex) 2 gm in 50 mls @ 50 mls/hr IVPB Q8@0400,1200,2000 [facility]; Protocol Last Admin: 01/30/18 06:00 Dose: 50 mls/hr Levothyroxine Sodium (Synthroid) 100 mcg PO DAILY@0630 [facility] Last Admin: 01/30/18 06:01 Dose: 100 mcg Ondansetron HCl (Zofran Inj) 4 mg IVP Q8 PRN PRN Reason: Nausea/Vomiting Oxycodone HCl (Oxycontin Extended Release Tab) 30 mg PO Q12 [facility] Stop: 01/30/18 21:01 Last Admin: 01/30/18 09:04 Dose: 30 mg Oxycodone/Acetaminophen (Percocet 5/325 Mg Tab) 2 tab PO Q4 PRN PRN Reason: Pain, moderate (4-7) Stop: 01/30/18 15:14 Last Admin: 01/28/18 07:31 Dose: 2 tab Pregabalin (Lyrica) 75 mg PO BID [facility] Last Admin: 01/30/18 09:03 Dose: 75 mg - Labs Labs: 01/28/18 05:45 01/28/18 05:45 PT 11.8 Seconds (9.8-13.1) 01/23/18 05:45 INR 1.0 01/23/18 05:45 APTT 30.3 Seconds (25.6-37.1) 01/23/18 05:45 - Extremities Exam Additional comments: RLE: +DP/PT pulses foot swelling improved wound vac as per Dr. Flynn +Extension of lesser toes and flexion of toes sensation intact to dorsal and plantar foot and 1st dorsal webspace Assessment and Plan (1) Closed fracture of distal end of right fibula and tibia Assessment & Plan: POD#7 s/p ORIF distal tibial shaft/distal fibular shaft/posterior malleolus PT/OT NWB RLE DVT ppx ice/elevate for foot swelling orthopedically stable for transfer to TCU above d/w Dr. Metcalf, agrees Status: Acute
--- NOTE | 2018-01-30 18:36 | CP.PCM.PN ---
Subjective - Date & Time of Evaluation Date of Evaluation: 01/30/18 Time of Evaluation: 18:36 - Subjective Subjective: pt doing well pain controlled no fcnvd no auth for tcu consulta appricated foot swollen but improved distal pms intact wound vac until friday Objective - Vital Signs/Intake and Output Vital Signs (last 24 hours): Temp Pulse Resp BP Pulse Ox 98.0 F 93 H 18 119/82 97 01/30/18 16:55 01/30/18 16:55 01/30/18 16:55 01/30/18 16:55 01/30/18 16:55 - Medications Medications: Current Medications Acetaminophen (Tylenol 325mg Tab) 650 mg PO Q6 PRN PRN Reason: Pain, Mild (1-3) Last Admin: 01/30/18 01:16 Dose: 650 mg Cyclobenzaprine HCl (Flexeril) 5 mg PO Q8 PRN PRN Reason: Muscle spasm Diazepam (Valium) 10 mg PO Q6 PRN PRN Reason: Muscle spasm Last Admin: 01/28/18 23:25 Dose: 10 mg Enoxaparin Sodium (Lovenox) 40 mg SC DAILY [facility]; Protocol Last Admin: 01/30/18 09:06 Dose: 40 mg Hydromorphone HCl (Dilaudid) 4 mg PO Q4 PRN PRN Reason: Pain, severe (8-10) Last Admin: 01/30/18 17:00 Dose: 4 mg Lactated Ringer's (Lactated Ringer's) 1,000 mls @ 75 mls/hr IV .[id number] [facility] Last Admin: 01/29/18 02:00 Dose: Not Given Cefazolin Sodium/Dextrose (Ancef Iv 2 Gm Duplex) 2 gm in 50 mls @ 50 mls/hr IVPB Q8@0400,1200,2000 [facility]; Protocol Last Admin: 01/30/18 13:32 Dose: 50 mls/hr Levothyroxine Sodium (Synthroid) 100 mcg PO DAILY@0630 [facility] Last Admin: 01/30/18 06:01 Dose: 100 mcg Ondansetron HCl (Zofran Inj) 4 mg IVP Q8 PRN PRN Reason: Nausea/Vomiting Oxycodone HCl (Oxycontin Extended Release Tab) 30 mg PO Q12 [facility] Stop: 01/30/18 21:01 Last Admin: 01/30/18 09:04 Dose: 30 mg Pregabalin (Lyrica) 75 mg PO BID [facility] Last Admin: 01/30/18 17:00 Dose: 75 mg - Labs Labs: 01/28/18 05:45 01/28/18 05:45 PT 11.8 Seconds (9.8-13.1) 01/23/18 05:45 INR 1.0 01/23/18 05:45 APTT 30.3 Seconds (25.6-37.1) 01/23/18 05:45 - Constitutional Appears: Well, Non-toxic, No Acute Distress - Head Exam Head Exam: ATRAUMATIC, NORMAL INSPECTION, NORMOCEPHALIC - Eye Exam Eye Exam: EOMI, Normal appearance, PERRL Pupil Exam: NORMAL ACCOMODATION, PERRL - ENT Exam ENT Exam: Mucous Membranes Moist, Normal Exam - Neck Exam Neck Exam: Full ROM, Normal Inspection. absent: Lymphadenopathy - Respiratory Exam Respiratory Exam: Clear to Ausculation Bilateral, NORMAL BREATHING PATTERN - Cardiovascular Exam Cardiovascular Exam: REGULAR RHYTHM, RRR, +S1, +S2. absent: Murmur - GI/Abdominal Exam GI & Abdominal Exam: Soft, Normal Bowel Sounds. absent: Tenderness - Extremities Exam Extremities Exam: Full ROM, Normal Capillary Refill, Normal Inspection. absent: Joint Swelling, Pedal Edema Additional comments: distal pms intact. less swelling - Back Exam Back Exam: NORMAL INSPECTION - Neurological Exam Neurological Exam: Alert, Awake, CN II-XII Intact, Normal Gait, Oriented x3 - Psychiatric Exam Psychiatric exam: Normal Affect, Normal Mood - Skin Skin Exam: Dry, Intact, Normal Color, Warm Assessment and Plan (1) DVT prophylaxis Status: Acute (2) Fracture of tibia and fibula Status: Acute (3) Hypothyroid Status: Acute - Assessment and Plan (Free Text) Assessment: (1) DVT prophylaxis Assessment & Plan: scd nad ae hose lovenox Status: Acute (2) Fracture of tibia and fibula Assessment & Plan: wound vac ntil mon/tues as per plastics for tcu today pain control plastics, ortho, pain management to follow Status: Acute (3) Hypothyroid Assessment & Plan: synthroid Status: Acute no auth for tcu to remain on 6s
[2018-01-30] MEDS: Lactated Ringer's 1,000 ML IV SCH (20:07)
[2018-01-31] MEDS: ceFAZolin IV 2 gm in Dextrose 2 GM/50 ML BAG IVPB SCH ×3 (03:42→21:00)
[2018-01-31] MEDS: Levothyroxine 100 MCG TAB PO SCH (06:51)
[2018-01-31] MEDS: Lactated Ringer's 1,000 ML IV SCH ×2 (07:20→12:38)
[2018-01-31] MEDS ORDERED: Oxycodone/Acetaminophen 5/325 mg Tab PO PRN (08:03)
[2018-01-31] MEDS: Enoxaparin 40 mg Syringe SC SCH (08:28)
[2018-01-31] MEDS: oxyCODONE 10 mg ER Tab (oxyCONTIN) PO SCH ×2 (08:31→21:00)
[2018-01-31] MEDS ORDERED: Sodium Chloride 0.9% 1,000 ML IV SCH (11:45)
[2018-01-31 12:02] LABS: BASO % 0.2 % (0.0-2.0); EOS # 0.4 K/uL (0.0-0.7); EOS % 4.9 % (0.0-4.0); HEMOGLOBIN 13.4 g/dL (12.0-16.0); LYMPH # 3.9 K/uL (1.0-4.3); LYMPH % 48.8 % (20.0-40.0); MEAN CELL VOLUME 96.1 fl (81.0-99.0); MEAN CORPUSCULAR HEMOGLOBIN 32.5 pg (27.0-31.0); MEAN CORPUSCULAR HGB CONC 33.8 g/dL (33.0-37.0); MEAN PLATELET VOLUME 7.6 fl (7.2-11.7); MONO # 0.7 K/uL (0.0-0.8); NEUT # 2.9 K/uL (1.8-7.0); NEUT % 37.1 % (50.0-75.0); NRBC % 0.1 % (0.0-0.0); RBC 4.13 Mil/uL (3.80-5.20); RED CELL DISTRIBUTION WIDTH 12.2 % (11.5-14.5); WHITE BLOOD COUNT 7.9 K/uL (4.8-10.8)
[2018-01-31 12:22] LABS: BLOOD UREA NITROGEN 11 mg/dl (7-17); CALCIUM 9.7 mg/dL (8.4-10.2); GFR NON-AFRICAN AMERICAN > 60
--- NOTE | 2018-01-31 12:53 | PCM.RRT ---
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 Patient states that while walking during physical therapy, felt like faint, and passed out for few seconds. No involuntary movements reported by nurse or PT. No evidence of bladder or bowel incontinence. On arrival patient was found awake, alert, and oriented x 3. 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 - Neurological Status (Select all that apply): Alert, Oriented, Verbal, Follows Commands. absent: Disoriented, Confused, Lethargic, Aggressive, Weakness - Constitutional Appears: Non-toxic, No Acute Distress - Eyes Eye Exam: Normal appearance - Respiratory Exam Respiratory Exam: Clear to Ausculation Bilateral, NORMAL BREATHING PATTERN. absent: Rales, Rhonchi, Wheezes, Respiratory Distress, Stridor - Cardiovascular Exam Cardiovascular Exam: REGULAR RHYTHM, +S1, +S2 - GI/Abdominal Exam GI & Abdominal Exam: Soft, Normal Bowel Sounds. absent: Distended, Guarding, Rigid, Tenderness, Diminished Bowel Sounds, Hypoactive Bowel Sounds - Neurological Exam Neurological Exam: Alert, Awake, Oriented x3 - Extremities Exam Extremities Exam: Normal Inspection. absent: Calf Tenderness, Pedal Edema Plan - Assessment of Findings&Treatment Plan Syncope likely 2/2 dehydration and pain medication side effects Initial BP was 67/36, normal oxygen sat 99 %, HR : 77, BSL: 102 mg/dl PE: remarkable for mucous dryness NS 1 L bolus CBC, BMP re-eval BP improved to 130/92 PCP, and Ortho surgeon notified. ROBOTICS MECHANIC leader Dr. Schmitt <Liza Schmitt - Last Filed: 01/31/18 17:47> Attending/Attestation - Attestation I have personally seen and examined this patient.: Yes I have fully participated in the care of the patient.: Yes I have reviewed all pertinent clinical information, including history, physical exam and plan: Yes Notes (Text): Syncope due to Orthostatic Hypotension likely due to Dehydration and Narcotic Pain med side effect - IVF hydration - Bolus NS - Time meds-Avoid giving Opiates, Lyrica and Flexeril at one time - Encourage oral fluid intake PMD : Dr Garg and Ortho : Dr Raúl High notified of event
--- NOTE | 2018-01-31 14:22 | CP.PCM.PN ---
Subjective - Date & Time of Evaluation Date of Evaluation: 01/31/18 Time of Evaluation: 14:22 - Subjective Subjective: pt doing well pain controlled no fcnvd per dr kiel rodriges pt still for tcu still w/ some foot swelling. c/o blisters to foot and heel pain-dr villarreal aware of all for new splinting also c/o irritation to back from hospital sheets after eval this provider was contacted pt had suncope during phys therapy hydrated and bw noted Objective - Vital Signs/Intake and Output Vital Signs (last 24 hours): Temp Pulse Resp BP Pulse Ox 97.9 F 79 19 124/82 100 01/31/18 13:57 01/31/18 13:57 01/31/18 13:57 01/31/18 13:57 01/31/18 13:57 Intake and Output: 01/31/18 01/31/18 06:59 18:59 Output Total 0 Balance 0 - Medications Medications: Current Medications Acetaminophen (Tylenol 325mg Tab) 650 mg PO Q6 PRN PRN Reason: Pain, Mild (1-3) Last Admin: 01/31/18 06:52 Dose: 650 mg Cyclobenzaprine HCl (Flexeril) 5 mg PO Q8 PRN PRN Reason: Muscle spasm Last Admin: 01/31/18 09:12 Dose: 5 mg Diazepam (Valium) 10 mg PO Q6 PRN PRN Reason: Muscle spasm Last Admin: 01/28/18 23:25 Dose: 10 mg Hydromorphone HCl (Dilaudid) 4 mg PO Q4 PRN PRN Reason: Pain, severe (8-10) Last Admin: 01/31/18 14:02 Dose: 4 mg Lactated Ringer's (Lactated Ringer's) 1,000 mls @ 75 mls/hr IV .[id number] [facility] Last Admin: 01/31/18 12:38 Dose: 75 mls/hr Cefazolin Sodium/Dextrose (Ancef Iv 2 Gm Duplex) 2 gm in 50 mls @ 50 mls/hr IVPB Q8@0400,1200,2000 [facility]; Protocol Last Admin: 01/31/18 12:40 Dose: 50 mls/hr Sodium Chloride (Sodium Chloride 0.9%) 1,000 mls @ 999 mls/hr IV .[id number] [facility] Stop: 02/01/18 11:34 Last Admin: 01/31/18 12:40 Dose: 999 mls/hr Levothyroxine Sodium (Synthroid) 100 mcg PO DAILY@0630 [facility] Last Admin: 01/31/18 06:51 Dose: 100 mcg Ondansetron HCl (Zofran Inj) 4 mg IVP Q8 PRN PRN Reason: Nausea/Vomiting Oxycodone HCl (Oxycontin Extended Release Tab) 30 mg PO Q12 [facility] Stop: 02/03/18 09:01 Last Admin: 01/31/18 08:31 Dose: 30 mg Oxycodone/Acetaminophen (Percocet 5/325 Mg Tab) 2 tab PO Q4 PRN PRN Reason: Pain, moderate (4-7) Stop: 02/03/18 08:04 Pregabalin (Lyrica) 75 mg PO BID [facility] Last Admin: 01/31/18 08:35 Dose: 75 mg - Labs Labs: 01/31/18 11:58 01/31/18 11:58 PT 11.8 Seconds (9.8-13.1) 01/23/18 05:45 INR 1.0 01/23/18 05:45 APTT 30.3 Seconds (25.6-37.1) 01/23/18 05:45 - Constitutional Appears: Well, Non-toxic, No Acute Distress - Head Exam Head Exam: ATRAUMATIC, NORMAL INSPECTION, NORMOCEPHALIC - Eye Exam Eye Exam: EOMI, Normal appearance, PERRL Pupil Exam: NORMAL ACCOMODATION, PERRL - ENT Exam ENT Exam: Mucous Membranes Moist, Normal Exam - Neck Exam Neck Exam: Full ROM, Normal Inspection. absent: Lymphadenopathy - Respiratory Exam Respiratory Exam: Clear to Ausculation Bilateral, NORMAL BREATHING PATTERN - Cardiovascular Exam Cardiovascular Exam: REGULAR RHYTHM, RRR, +S1, +S2. absent: Murmur - GI/Abdominal Exam GI & Abdominal Exam: Soft, Normal Bowel Sounds. absent: Tenderness - Extremities Exam Extremities Exam: Full ROM, Normal Capillary Refill, Normal Inspection. absent: Joint Swelling, Pedal Edema - Back Exam Back Exam: NORMAL INSPECTION - Neurological Exam Neurological Exam: Alert, Awake, CN II-XII Intact, Normal Gait, Oriented x3 - Psychiatric Exam Psychiatric exam: Normal Affect, Normal Mood - Skin Skin Exam: Dry, Intact, Normal Color, Warm Additional comments: irritation to back. blisters to foot Assessment and Plan (1) DVT prophylaxis Status: Acute (2) Fracture of tibia and fibula Status: Acute (3) Hypothyroid Status: Acute - Assessment and Plan (Free Text) Assessment: (1) DVT prophylaxis Assessment & Plan: scd nad ae hose ruthnox Status: Acute (2) Fracture of tibia and fibula Assessment & Plan: wound vac ntil mon/tues as per plastics for tcu today pain control plastics, ortho, pain management to follow Status: Acute (3) Hypothyroid Assessment & Plan: synthroid Status: Acute 4-discomfort from split-ortho to readjust 5-rash to back-cortisone for itch, claritin no auth for tcu to remain on 6s
--- NOTE | 2018-01-31 14:52 | CARD ---
APPROVED REPORT Date of service: 01/31/2018 EKG Measurement Heart [id number] <Conclusion> Normal sinus rhythm Normal Electrocardiogram
[2018-02-01] MEDS: Lactated Ringer's 1,000 ML IV SCH ×2 (03:58→18:15)
[2018-02-01] MEDS: ceFAZolin IV 2 gm in Dextrose 2 GM/50 ML BAG IVPB SCH ×3 (04:48→20:25)
[2018-02-01] MEDS: Levothyroxine 100 MCG TAB PO SCH (06:53)
[2018-02-01 07:55] LABS: BASO # 0.1 K/uL (0.0-0.2); BASO % 1.5 % (0.0-2.0); EOS # 0.4 K/uL (0.0-0.7); EOS % 6.9 % (0.0-4.0); HEMOGLOBIN 12.1 g/dL (12.0-16.0); LYMPH # 2.6 K/uL (1.0-4.3); LYMPH % 44.5 % (20.0-40.0); MEAN CELL VOLUME 96.1 fl (81.0-99.0); MEAN CORPUSCULAR HEMOGLOBIN 32.6 pg (27.0-31.0); MEAN PLATELET VOLUME 7.5 fl (7.2-11.7); MONO # 0.6 K/uL (0.0-0.8); MONO % 9.6 % (0.0-10.0); NEUT # 2.2 K/uL (1.8-7.0); NEUT % 37.5 % (50.0-75.0); NRBC % 0.2 % (0.0-0.0); RBC 3.72 Mil/uL (3.80-5.20); RED CELL DISTRIBUTION WIDTH 12.1 % (11.5-14.5); WHITE BLOOD COUNT 5.9 K/uL (4.8-10.8)
[2018-02-01 08:05] LABS: ALB/GLOB RATIO 1.1 (1.0-2.1); ALBUMIN 3.7 g/dL (3.5-5.0); ALT/SGPT 39 U/L (9-52); AST/SGOT 46 U/L (14-36); BLOOD UREA NITROGEN 11 mg/dl (7-17); CALCIUM 9.4 mg/dL (8.4-10.2); GFR NON-AFRICAN AMERICAN > 60
[2018-02-01 08:10] LABS: T3 UPTAKE 34.3 % (23.0-41.0); T4 9.97 ug/dl (5.5-11.0)
[2018-02-01 08:23] LABS: T3 0.881 nmol/L (1.49-2.60)
[2018-02-01] MEDS: oxyCODONE 10 mg ER Tab (oxyCONTIN) PO SCH ×3 (10:20→23:06)
[2018-02-01] MEDS ORDERED: HYDROmorphone 0.5 mg/0.5 ml ISec IVP ONE (22:59)
[2018-02-02] MEDS: ceFAZolin IV 2 gm in Dextrose 2 GM/50 ML BAG IVPB SCH ×2 (05:11→11:26)
[2018-02-02] MEDS ORDERED: oxyCODONE 10 mg ER Tab (oxyCONTIN) PO SCH (05:30)
[2018-02-02] MEDS: Levothyroxine 100 MCG TAB PO SCH (07:00)
[2018-02-02 07:42] VITALS: BP 104/65; RESP 20; TEMP 97.9
--- NOTE | 2018-02-02 10:02 | CP.PCM.PN ---
Subjective - Date & Time of Evaluation Date of Evaluation: 02/02/18 Time of Evaluation: 10:00 - Subjective Subjective: pt doing well. pain controlled at present reuqired iv dilaudid last night. nofurther syncope. for tcu today distal pms intact, marked less swelling to r foot. Objective - Vital Signs/Intake and Output Vital Signs (last 24 hours): Temp Pulse Resp BP Pulse Ox 97.9 F 77 20 104/65 99 02/02/18 09:00 02/02/18 09:00 02/02/18 09:00 02/02/18 09:00 02/02/18 07:41 Intake and Output: 02/02/18 02/02/18 06:59 18:59 Intake Total 200 Balance 200 - Medications Medications: Current Medications Acetaminophen (Tylenol 325mg Tab) 650 mg PO Q6 PRN PRN Reason: Pain, Mild (1-3) Last Admin: 02/02/18 09:01 Dose: 650 mg Cyclobenzaprine HCl (Flexeril) 5 mg PO Q8 PRN PRN Reason: Muscle spasm Last Admin: 02/01/18 21:38 Dose: 5 mg Diazepam (Valium) 10 mg PO Q6 PRN PRN Reason: Muscle spasm Hydrocortisone (Hydrocortisone 2.5%) 1 applic TOP BID [facility] Last Admin: 02/02/18 09:12 Dose: Not Given Hydromorphone HCl (Dilaudid) 4 mg PO Q4 PRN PRN Reason: Pain, severe (8-10) Last Admin: 02/01/18 20:24 Dose: 4 mg Lactated Ringer's (Lactated Ringer's) 1,000 mls @ 75 mls/hr IV .[id number] [facility] Last Admin: 02/01/18 18:15 Dose: 75 mls/hr Cefazolin Sodium/Dextrose (Ancef Iv 2 Gm Duplex) 2 gm in 50 mls @ 50 mls/hr IVPB Q8@0400,1200,2000 [facility]; Protocol Last Admin: 02/02/18 05:11 Dose: 50 mls/hr Levothyroxine Sodium (Synthroid) 100 mcg PO DAILY@0630 [facility] Last Admin: 02/02/18 07:00 Dose: 100 mcg Loratadine (Claritin) 10 mg PO DAILY PRN PRN Reason: itchiness Ondansetron HCl (Zofran Inj) 4 mg IVP Q8 PRN PRN Reason: Nausea/Vomiting Oxycodone HCl (Oxycontin Extended Release Tab) 30 mg PO Q12@0500,1700 [facility] Stop: 02/03/18 09:01 Last Admin: 02/02/18 05:37 Dose: 30 mg Oxycodone/Acetaminophen (Percocet 5/325 Mg Tab) 2 tab PO Q4 PRN PRN Reason: Pain, moderate (4-7) Stop: 02/03/18 08:04 Pregabalin (Lyrica) 100 mg PO BID [facility] - Labs Labs: 02/01/18 06:00 02/01/18 06:00 PT 11.8 Seconds (9.8-13.1) 01/23/18 05:45 INR 1.0 01/23/18 05:45 APTT 30.3 Seconds (25.6-37.1) 01/23/18 05:45 - Constitutional Appears: Well, Non-toxic, No Acute Distress - Head Exam Head Exam: ATRAUMATIC, NORMAL INSPECTION, NORMOCEPHALIC - Eye Exam Eye Exam: EOMI, Normal appearance, PERRL Pupil Exam: NORMAL ACCOMODATION, PERRL - ENT Exam ENT Exam: Mucous Membranes Moist, Normal Exam - Neck Exam Neck Exam: Full ROM, Normal Inspection. absent: Lymphadenopathy - Respiratory Exam Respiratory Exam: Clear to Ausculation Bilateral, NORMAL BREATHING PATTERN - Cardiovascular Exam Cardiovascular Exam: REGULAR RHYTHM, RRR, +S1, +S2. absent: Murmur - GI/Abdominal Exam GI & Abdominal Exam: Soft, Normal Bowel Sounds. absent: Tenderness - Extremities Exam Extremities Exam: Full ROM, Normal Capillary Refill, Normal Inspection. absent: Joint Swelling, Pedal Edema Additional comments: distal pms intact, cap refill brisk, less swelling - Back Exam Back Exam: NORMAL INSPECTION - Neurological Exam Neurological Exam: Abnormal Gait, Alert, Awake, CN II-XII Intact, Oriented x3 - Psychiatric Exam Psychiatric exam: Normal Affect, Normal Mood - Skin Skin Exam: Dry, Intact, Normal Color, Warm Assessment and Plan (1) DVT prophylaxis Status: Acute (2) Fracture of tibia and fibula Status: Acute (3) Hypothyroid Status: Acute - Assessment and Plan (Free Text) Assessment: (1) DVT prophylaxis Assessment & Plan: scd nad ae hose lovenox Status: Acute (2) Fracture of tibia and fibula Assessment & Plan: wound vac ntil mon/tues as per plastics for tcu today pain control plastics, ortho, pain management to follow wond vac dc as per plastics Status: Acute (3) Hypothyroid Assessment & Plan: synthroid Status: Acute 4-discomfort from split-ortho to readjust 5-rash to back-cortisone for itch, claritin dc to tcu today
[2018-02-02 11:48] VITALS: PULSE 74; O2SAT 98
--- NOTE | 2018-02-02 12:30 | CP.PCM.PN ---
Subjective - Date & Time of Evaluation Date of Evaluation: 02/02/18 Time of Evaluation: 12:29 - Subjective Subjective: Patient states she is having more pain now. Chart reviewed, syncopal episode on 01/31. No CP/SOB/dizzziness or further episodes. Objective - Vital Signs/Intake and Output Vital Signs (last 24 hours): Temp Pulse Resp BP Pulse Ox 97.9 F 74 20 104/65 98 02/02/18 09:00 02/02/18 10:35 02/02/18 09:00 02/02/18 09:00 02/02/18 10:35 Intake and Output: 02/02/18 02/02/18 06:59 18:59 Intake Total 200 Balance 200 - Medications Medications: Current Medications Acetaminophen (Tylenol 325mg Tab) 650 mg PO Q6 PRN PRN Reason: Pain, Mild (1-3) Last Admin: 02/02/18 09:01 Dose: 650 mg Cyclobenzaprine HCl (Flexeril) 5 mg PO Q8 PRN PRN Reason: Muscle spasm Last Admin: 02/01/18 21:38 Dose: 5 mg Diazepam (Valium) 10 mg PO Q6 PRN PRN Reason: Muscle spasm Hydrocortisone (Hydrocortisone 2.5%) 1 applic TOP BID [facility] Last Admin: 02/02/18 09:12 Dose: Not Given Hydromorphone HCl (Dilaudid) 4 mg PO Q4 PRN PRN Reason: Pain, severe (8-10) Last Admin: 02/01/18 20:24 Dose: 4 mg Lactated Ringer's (Lactated Ringer's) 1,000 mls @ 75 mls/hr IV .[id number] [facility] Last Admin: 02/01/18 18:15 Dose: 75 mls/hr Cefazolin Sodium/Dextrose (Ancef Iv 2 Gm Duplex) 2 gm in 50 mls @ 50 mls/hr IVPB Q8@0400,1200,2000 [facility]; Protocol Last Admin: 02/02/18 11:26 Dose: 50 mls/hr Levothyroxine Sodium (Synthroid) 100 mcg PO DAILY@0630 [facility] Last Admin: 02/02/18 07:00 Dose: 100 mcg Loratadine (Claritin) 10 mg PO DAILY PRN PRN Reason: itchiness Ondansetron HCl (Zofran Inj) 4 mg IVP Q8 PRN PRN Reason: Nausea/Vomiting Oxycodone HCl (Oxycontin Extended Release Tab) 30 mg PO Q12@0500,1700 [facility] Stop: 02/03/18 09:01 Last Admin: 02/02/18 05:37 Dose: 30 mg Oxycodone/Acetaminophen (Percocet 5/325 Mg Tab) 2 tab PO Q4 PRN PRN Reason: Pain, moderate (4-7) Stop: 02/03/18 08:04 Last Admin: 02/02/18 11:55 Dose: 2 tab Pregabalin (Lyrica) 100 mg PO BID [facility] - Labs Labs: 02/01/18 06:00 02/01/18 06:00 PT 11.8 Seconds (9.8-13.1) 01/23/18 05:45 INR 1.0 01/23/18 05:45 APTT 30.3 Seconds (25.6-37.1) 01/23/18 05:45 - Extremities Exam Additional comments: RLE: swelling to foot is sig improved. +DP/PT pulses, patient now with ext of great toe and lesser toes. sensation intact to 1st dorsal webspace, med/lat dorsal and plantar aspects of foot. Splint intact, padded Assessment and Plan (1) Closed fracture of distal end of right fibula and tibia Assessment & Plan: POD#10 s/p ORIF right distal tib/fib for wound vac change Dr. Flynn today NWB tolerating PT well today VTE proph orthopedically stable plan TCU placement d/w Dr. Waddell, agrees with above Status: Acute
--- NOTE | 2018-02-05 10:44 | CP.PCM.DIS ---
Provider - Provider Date of Admission: 01/21/18 15:07 Attending physician: Andrei Escalante MD Consults: 01/20/18 23:57 Orthopedic Consult Stat Comment: Consulting Provider: Marisol Kowalski Consulting Physician: Marisol Kowalski Reason for Consult: right tib fib fx 01/27/18 09:03 Plastic Surgery Consult Routine Comment: Consulting Provider: Carol Flynn V Consulting Physician: Carol Flynn V Reason for Consult: Right tib/fib fx s/p surgical fixation with wound vac 01/27/18 13:04 Anesthesiology Consult Routine Comment: Consulting Provider: Remigio Barrera Consulting Physician: Remigio Barrera Reason for Consult: S/p ORIF right tib/fib Time Spent in preparation of Discharge (in minutes): 15 Diagnosis - Discharge Diagnosis (1) DVT prophylaxis Status: Acute (2) Fracture of tibia and fibula Status: Acute (3) Hypothyroid Status: Acute Hospital Course - Lab Results Lab Results: Most Recent Lab Values WBC 5.9 K/uL (4.8-10.8) 02/01/18 06:00 RBC 3.72 Mil/uL (3.80-5.20) L 02/01/18 06:00 Hgb 12.1 g/dL (12.0-16.0) 02/01/18 06:00 Hct 35.7 % (34.0-47.0) 02/01/18 06:00 MCV 96.1 fl (81.0-99.0) 02/01/18 06:00 MCH 32.6 pg (27.0-31.0) H 02/01/18 06:00 MCHC 34.0 g/dL (33.0-37.0) 02/01/18 06:00 RDW 12.1 % (11.5-14.5) 02/01/18 06:00 Plt Count 445 K/uL (130-400) H 02/01/18 06:00 MPV 7.5 fl (7.2-11.7) 02/01/18 06:00 Neut % (Auto) 37.5 % (50.0-75.0) L 02/01/18 06:00 Lymph % (Auto) 44.5 % (20.0-40.0) H 02/01/18 06:00 [place] % (Auto) 9.6 % (0.0-10.0) 02/01/18 06:00 Eos % (Auto) 6.9 % (0.0-4.0) H 02/01/18 06:00 Baso % (Auto) 1.5 % (0.0-2.0) 02/01/18 06:00 Neut # (Auto) 2.2 K/uL (1.8-7.0) 02/01/18 06:00 Lymph # (Auto) 2.6 K/uL (1.0-4.3) 02/01/18 06:00 [place] # (Auto) 0.6 K/uL (0.0-0.8) 02/01/18 06:00 Eos # (Auto) 0.4 K/uL (0.0-0.7) 02/01/18 06:00 Baso # (Auto) 0.1 K/uL (0.0-0.2) 02/01/18 06:00 PT 11.8 Seconds (9.8-13.1) 01/23/18 05:45 INR 1.0 01/23/18 05:45 APTT 30.3 Seconds (25.6-37.1) 01/23/18 05:45 Sodium 141 mmol/l (132-148) 02/01/18 06:00 Potassium 4.0 MMOL/L (3.6-5.0) 02/01/18 06:00 Chloride 104 mmol/L (98-107) 02/01/18 06:00 Carbon Dioxide 26 mmol/L (22-30) 02/01/18 06:00 Anion Gap 15 (10-20) 02/01/18 06:00 BUN 11 mg/dl (7-17) 02/01/18 06:00 Creatinine 0.7 mg/dl (0.7-1.2) 02/01/18 06:00 Est GFR ( Amer) > 60 02/01/18 06:00 Est GFR (Non-Af Amer) > 60 02/01/18 06:00 POC Glucose (mg/dL) 102 mg/dL (65-110) 01/31/18 11:46 Random Glucose 88 mg/dL (65-105) 02/01/18 06:00 Calcium 9.4 mg/dL (8.4-10.2) 02/01/18 06:00 Total Bilirubin 0.4 mg/dl (0.2-1.3) 02/01/18 06:00 AST 46 U/L (14-36) H 02/01/18 06:00 ALT 39 U/L (9-52) 02/01/18 06:00 Alkaline Phosphatase 48 U/L (38-126) 02/01/18 06:00 Total Creatine Kinase 249 U/L (30-135) H 01/28/18 05:45 Total Protein 7.0 G/DL (6.3-8.2) 02/01/18 06:00 Albumin 3.7 g/dL (3.5-5.0) 02/01/18 06:00 Globulin 3.3 gm/dL (2.2-3.9) 02/01/18 06:00 Albumin/Globulin Ratio 1.1 (1.0-2.1) 02/01/18 06:00 Thyroxine (T4) 9.97 ug/dl (5.5-11.0) 02/01/18 06:00 Total T3 0.881 nmol/L (1.49-2.60) L 02/01/18 06:00 T3 Uptake 34.3 % (23.0-41.0) 02/01/18 06:00 TSH 3rd Generation 2.63 mIU/ML (0.46-4.68) 02/01/18 06:00 Serum HCG, Qual Negative (NEGATIVE) 01/22/18 09:01 MIKE Nuclear Membr Pat Positive (Negative) H 01/25/18 06:00 - Hospital Course Hospital Course: ortho, plastics, vascular surgery pain control anesthesia Discharge Exam - Head Exam Head Exam: ATRAUMATIC, NORMAL INSPECTION, NORMOCEPHALIC Discharge Plan - Discharge Medications Prescriptions: Acetaminophen [Tylenol 325mg tab] 650 mg PO Q6 PRN #10 tab PRN Reason: Pain, Mild (1-3) Cyclobenzaprine [Flexeril] 5 mg PO Q8 PRN #10 tab PRN Reason: Muscle Spasm Enoxaparin [Lovenox] 40 mg SC DAILY #10 syr Ondansetron [Zofran Inj] 4 mg IVP Q8 PRN #10 vial PRN Reason: Nausea/Vomiting - Follow Up Plan Condition: FAIR Disposition: TRANSF TO SNF Instructions: Ankle Fracture, How to Wash Your Hands Properly, Tibia Fracture, Fibula Fracture Additional Instructions: Non-weight bearing on the R lower extremity final dx-r tib/fib fx cont pain control cont wound vac cont all pain meds cont ancef pt/ot in TCU
--- NOTE | 2018-02-05 18:46 | OP ---
PROCEDURE DATE: 01/23/2018 PREOPERATIVE DIAGNOSES: Right leg; 1. Displaced oblique segmental comminuted distal tibia shaft fracture. 2. Displaced posterior malleolus fracture ( large fragment approximately 40% to 45% of the articular surface involvement). 3. Displaced oblique distal fibular/lateral malleolus fracture. 4. Nondisplaced medial malleolus fracture. 5. Complete anterior talofibular ligament tear. 6. Syndesmotic tear. 7. Anterior tibial artery entrapped within distal tibia shaft fracture. 8. Multiple loose bodies within ankle joint and tibiotalar joint. 9. Significant baseline peripheral arterial spasmodic state. 10. Very thin medial and lateral malleolus overlying soft tissue. POSTOPERATIVE DIAGNOSES: Right leg; 1. Displaced oblique segmental comminuted distal tibia shaft fracture. 2. Displaced posterior malleolus fracture ( large fragment approximately 40% to 45% of the articular surface involvement). 3. Displaced oblique segmental comminuted distal fibular/lateral malleolus fracture with anterior bone defect at the level of the fracture. 4. Nondisplaced comminuted medial malleolus fracture. 5. Complete anterior talofibular ligament tear. 6. Syndesmotic tear (stable on external rotation stress and cotton test after fixation of fractures of tibia and fibula). 7. Anterior tibial artery entrapped within distal tibia shaft fracture (salvaged intact and preserved at the end of procedure). 8. Multiple loose bodies within ankle joint/tibiotalar joint. 9. Significant baseline peripheral arterial spasmodic state. 10. Very thin medial and lateral malleolus overlying soft tissue. PROCEDURE: Right leg part 1: (Fawn Gates MD as co-surgeon). 1. Open reduction and internal fixation distal tibial shaft fracture. 2. Bone grafting to distal tibial shaft fracture. 3. Extensive debridement of interposed soft tissue at distal tibial shaft fracture. 4. Preservation and salvage of anterior tibial artery from distal tibial shaft fracture entrapment. 5. Open reduction and internal fixation of posterior malleolus fracture. 6. Open reduction and internal fixation of distal fibula shaft fracture/lateral malleolus fracture. 7. Bone grafting to lateral malleolus fracture bone defect. 8. Open reduction and internal fixation of medial malleolus fracture. PART 2 (Dr. Dieter Rich, vascular surgeon performed intraoperative right lower extremity angiogram and evaluation of arterial tree. PART 3: Carol Flynn MD, primary surgeon with Marisol Metcalf MD as first aid teacher performing right leg - medial wound length 14 cm and lateral wound length 10 cm. 1. Complex plastics wound closure. 2. Application of AlloDerm allograft tissue. 3. Application of VAC supplemental closure. 4. Placement of short-leg splint (splint placed by Dr. Metcalf). SURGEON: Marisol Metcalf MD DISTRIBUTION SYSTEMS SERVICEPERSON FOR THE OPEN REDUCTION AND INTERNAL FIXATION TREATMENT OF FRACTURES AND FRACTURE PORTION OF THE CASE: Fawn Gates MD was co-surgeon. For the intraoperative angiogram, Dr. Dieter Rich was the primary surgeon. For the plastics closure and AlloDerm allograft placement as well as application of VAC Dr. Carol Flynn was the primary surgeon with Marisol Metcalf MD as the social worker assistant for this complex surgery. ANESTHESIA: General endotracheal anesthesia with a regional block placed by anesthesia staff preoperatively. SPECIMENS: None. COMPLICATIONS: None. TOURNIQUET TIME: 120 minutes at 300 mmHg. IMPLANTS: [employer] 1. Precontoured distal medial tibial locking 8-hole plate with 3.5 and 2.7 mm screws placed (distal tibia shaft and medial malleolus open reduction and internal fixation). 2. Precontoured distal fibula locking 7-hole plate with 2.7 mm screws (distal fibula shaft and lateral malleolus fracture open reduction and internal fixation. 3. Cannulated 4.0 mm partially-threaded cancellous screws, 3 in total placed for posterior malleolus open reduction and internal fixation portion of the case). 4. 2.5 mL DBM allograft putty used for bone graft to tibia and fibular fracture bone defects. ESTIMATED BLOOD LOSS: 200 mL. DRAINS: None. DISPOSITION: The patient was extubated and transferred to PACU in stable condition and tolerated the procedure well. Dorsalis pedis and posterior tibial pulses were Dopplerable preop and postop with no neurovascular compromise during the case. INDICATIONS FOR SURGERY: The patient is a 37-year-old female with a past medical history significant for hypothyroidism and a history of undergoing multiple varicose veins treatment procedures approximately 10 years ago, who presented to the emergency room at [facility] in the late evening of 01/20/2018 with right leg/ankle deformity and pain. She stated that she was performing shuttle runs and exercising when she slipped, landing with her entire body and weight on her ankle/leg. She noticed immediate deformity of the distal leg and ankle with inability to weightbear on the right lower extremity. She denied seeing a bone or open fracture. She denied numbness or tingling or any other neurovascular compromise signs. She was brought to the emergency room at [facility] by EMS. After evaluation by ER staff and review of imaging, she was diagnosed with a distal tibia and fibula multiple displaced comminuted fractures. Orthopedic consultation was placed and her initial evaluation was done by podiatry resident service director recreation center. X-rays in the ER 01/20/2018: Right ankle and tib-fib: There was significant displaced oblique comminuted distal tibia shaft fracture with displaced posterior malleolus large fragment in the sagittal plane as well as a displaced long oblique distal fibula/lateral malleolus fracture. CAT scan of right ankle done in the ER on 01/20/2018 revealed displaced oblique comminuted distal tibia shaft fracture with a displaced posterior malleolus large fragment fracture in the sagittal plane comprising approximately 40% to 45% of the articular surface of the distal tibia. There was a nondisplaced comminuted medial malleolus fracture. There was a displaced long oblique distal fibula/lateral malleolus fracture with comminution and segmental pattern as well. CT angiogram right lower extremity done on 01/21/2018. Initial read by on-call offsite radiologist was that there was no vascular injury. The repeat read by in-house radiologist Dr. Killian revealed that there was intact perineal artery, intact posterior tibial artery but the anterior tibial artery appeared to have been cut off at the level of the distal tibia shaft fracture with most likely entrapment within the distal tibia shaft fracture itself. Review of documentation by nursing staff, ER staff, podiatry team showed that there was intact dorsalis pedis and posterior tibialis pulses palpated and documented throughout the admission since arriving in the ER. There was no documented deficit to either the dorsalis pedis or posterior tibial pulse since admission through the ER. I personally evaluated the patient as an inpatient next morning at [facility]. I removed the initial splint placed by the podiatry staff and evaluated the soft tissue and neurovascular status of the right lower extremity. There was significant swelling along the distal tibia fracture to the ankle with global soft tissue swelling. Using Doppler, the dorsalis pedis pulse and posterior tibialis artery displaced good triphasic flow. There was significant swelling down to the foot as well and toes. After reviewing the CT angio, I had a long discussion with the patient about the status of the anterior tibialis artery. A repeat closed reduction was carried out bedside on 01/21/2018 during the orthopedic evaluation which the patient tolerated the procedure well. A long leg posterior and U splint was placed. Repeat CT angio done later that evening revealed that the anterior tibial artery was indeed still intact with good runoff, but entrapped within the distal tibia shaft fracture throughout its course at the level of the fracture. Vascular consultation was placed for Dr. Dieter Rich who evaluated the patient and the CT angiograms and stated that the anterior tibial artery if possible to be salvaged during the procedure would be beneficial but no immediate intervention is required at this point in time as the perineal artery and posterior tibial artery were intact with good distal pulses on Doppler and physical examination by the vascular surgeon. She was indicated for complex salvage and fixation surgery including right leg open reduction and internal fixation of the distal tibia shaft fracture, open reduction and internal fixation of the trimalleolar fracture component including the distal fibula/lateral malleolus fracture, medial malleolus comminuted fracture, large fragment posterior malleolus fracture, intraoperative vascular evaluation, during the surgical exposure of the distal tibia shaft fracture, we would attempt to salvage the anterior tibial artery and maintain its integrity as much as possible. We would also involve plastic surgery consultation for complex plastics closure and possible need for AlloDerm allograft over the hardware to protect from wound breakdown and also for cosmesis for this young female. She displayed very thin soft tissue overlying the lateral and medial malleoli on her intact leg raising concerns for possible risk of wound complications and hardware issues during the postoperative healing phase. All in all, a coordinated effort of multispecialties including Vascular Surgery, Plastic Surgery, Orthopedic Surgery would be utilized to fix the fractures and salvage the anterior tibial artery as well as soft tissue management and vascular management. I had a very long conversation with the patient on initial consultation and on multiple occasions over the phone and in person preoperatively and postoperatively discussing the risks of the surgery as well as her baseline factors including her extremely thin soft tissue overlying the ankle area and history of vein treatments that may negatively impact her swelling and recovery postoperatively and the complex nature of her injury. The risks, benefits, and alternatives to the procedure were discussed in length with the patient with the risks including but not limited to infection, neurovascular damage, malunion, nonunion, need for further surgery, failure of hardware, need for removal of hardware, wound breakdown and soft tissue compromise, development of blood clots including DVT and PE, development of chronic pain and disability, need for future vascular surgery and plastic surgery, inability to return to preinjury level of activity and function, loss of limb, loss of function, anesthesia reactions including . After answering all the questions, stated that she understood the risks and wished to proceed with surgery. This is an active young female who is heavily involved in working out and crash training as well as skiing and is ambitious to return to her same level of preoperative and preinjury level of activity. She understands the nature of her complex injury and the multiple vascular and soft tissue issues surrounding her healing and recovery. She was admitted to the medical service under Dr. Escalante and preoperative medical clearance and evaluation was provided. Once the swelling decreased to an acceptable level, the patient was taken to the operating room on 01/23/2018. PROCEDURE IN DETAIL: The patient was identified in the preoperative holding area and the right leg was marked for surgery. Once again as described above, the risks, benefits, and alternatives to this complex procedure were discussed at length with the patient and informed consent was obtained. After a brief discussion with the anesthesia staff, the patient was taken to the operating room and placed in the well-padded operating room table with radiolucent lower extremity attachments. An initial timeout was done with the surgeon, anesthesia staff, OR staff all in agreement with the patient, procedure being done, extremity being operated on. General anesthesia was administered without difficulty or complication. The right lower extremity was prepped and draped in standard sterile fashion after a tourniquet was placed high on the right thigh. Care was taken to ensure that the vascular surgeon will have access to the right groin. This dictation dictates the details of the fracture treatment portions of the case. Please refer to Dr. Dieter Rich's vascular surgery dictation of the intraoperative angiogram and Dr. Carol Flynn's plastic surgery complex wound closure for those portions of the procedure. Once the right lower extremity was prepped and draped in standard sterile fashion, a final timeout was done with the surgeon, anesthesia staff, OR staff. All in agreement with the patient, procedure being done, and extremity being operated on. For this portion of the case, Dr. Fawn Gates was my co-surgeon for this complex fracture fixation. Procedure was started with attention to the distal tibia shaft fracture. A long 14 cm curvilinear incision was carried out starting at the level of the medial malleolus and extending proximally above the level of the distal tibia shaft fracture. Incision was made through skin down to the subcutaneous tissue, down to the level of the fascia. This was done after the right lower extremity was exsanguinated and the tourniquet inflated at 300 mmHg for a total tourniquet time of 120 minutes. Again, incision was made through the skin down to the subcutaneous tissue down to the level of the fascia. We began a very careful extensive debridement of the distal tibia shaft fracture site to salvage the anterior tibial artery. With the fracture displaced, we were able to identify the anterior tibial artery and remove it from harm's way and protect it throughout the course of the surgery. The artery appeared intact with intraoperative Doppler showing good triphasic flow although the artery did appear to be in spasm. There was extensive debridement carried out at the level of the distal tibia shaft fracture with significant interposed soft tissue and entrapped muscle. Once the soft tissue was cleared from the fracture plane with multiple reduction clamps, we were able to anatomically reduce the distal tibia shaft fracture. The fracture was comminuted, oblique, segmental pattern with multiple reduction clamps in place and biplanar fluoroscopic imaging confirming an anatomic reduction. An 8-hole precontoured medial distal tibia shaft plate was used from [employer] and temporarily fixed to the distal tibia bone with K-wires. We then proceeded with placement of alternating 3.5 mm screws nonlocking for the proximal portion of the plate and the 2.7 mm locking unicortical screws for the distal portion of the plate. The plate spanned the medial malleolus fracture and was also used as fixation for the medial malleolus comminuted fracture as well. Multiple lag screws had been placed to reduce and stabilize the segmental and oblique portions of the fracture in an anatomic position. Final screws were placed through the nonlocking and locking portions of the plate with biplanar fluoroscopic imaging showing good anatomic reduction and placement of hardware. We then turned our attention to the posterior malleolus fracture. With the use of biplanar fluoroscopic imaging, the displaced posterior malleolus fracture was identified as a large fragment status post splint comprising 40% to 45% of the articular surface of the distal tibia. With the use of large reduction clamps, we were able to anatomically reduce the posterior malleolus fracture and 3 cannulated 4.0 mm partially threaded screws from [employer] were placed from anterior to posterior holding the fracture with good fixation in a stable position and anatomic reduction successfully carried out. Supplemental screws through the distal tibia plate were also placed targeted towards the posterior malleolus fracture to support the construct. Once the posterior malleolus, medial malleolus, and distal tibia shaft fractures were found to be in anatomic reduction with hardware in good position, we then turned our attention to the lateral malleolus fracture. A posterolateral approach was carried out with a 10 cm length lateral wound. Incision was made through skin down to the subcutaneous tissue down to the level of the perineal fascia. The perineal tendons were identified and retracted posteriorly allowing for access to the lateral malleolus from posterior to anterior. Soft tissue flap was created allowing for access to the entire lateral malleolus fracture. The fracture appeared to have significant bone defect at the anterior aspect near the fracture as well as comminution and segmental pattern with this large oblique overall pattern. It was not possible to place lag screws at the lateral malleolus fracture and therefore bridge plating was used. A long precontoured distal fibula plate from the [employer] was selected as a precontoured 7-hole plate with 2.7 mm screws. The plate was temporarily fixed to the lateral malleolus bone with the large reduction clamps in position reducing the fracture and restoring fibular length with an anatomic reduction carried out and confirmed with biplanar fluoroscopic imaging. 2.7 mm locking and nonlocking screws were placed proximal and distal to the fracture as bridge plating technique. Once the hardware was in good position and the fracture reduced anatomically, biplanar fluoroscopic imaging was used to confirm the anatomic reduction as well as good placement of hardware both proximally and distal to the fracture. Again, fibular length was restored and good anatomic reduction resulting. At that point in time, a cotton test and external rotation test was carried out to evaluate the syndesmosis and indeed stability had been restored with only mild syndesmotic instability present. Due to the amount of hardware placed at the distal tibia and distal fibula, decision was made not to proceed with syndesmotic fixation as syndesmotic stability appeared to be restored for the most part and the complex nature of placing syndesmotic fixation with the amount of hardware already placed at the distal fibula and distal tibia. Both wounds were copiously irrigated and 2.5 mL of DBM putty was used to fill the distal fibula bone defect and the tibia shaft bone defect at the midpoint of the shaft fracture. Once the bone graft was in place, plastics wound closure including placement of AlloDerm, allograft over the medial and lateral plates and the plastics complex wound closure carried out by Dr. Flynn. Please refer to Dr. Flynn's dictation for details of wound closure and as stated before after the distal tibia shaft fracture was reduced and fixed, Dr. Dieter Rich performed an intraoperative angiogram confirming that the anterior tibial artery was indeed intact with good flow down to the level of the dorsalis pedis, although in a spasmodic state in his opinion. Once the complex wound closure and placement of VAC supplemental wound closure was carried out by Dr. Flynn with myself as the primary social worker assistant, I then proceeded to place a short-leg splint. A modified short-leg splint was placed with a posterior and U splint with open windows to allow for access to the VAC dressing. Once this was completed to satisfaction and the splint was hardened, the patient was taken to PACU in stable condition after successful general anesthesia extubation. DISPOSITION: The patient was reevaluated in PACU and Dopplers were used to confirm good triphasic flow to the dorsalis pedis and posterior tibial arteries. The VAC dressing was intact with good suction. The patient reported the ability to move all toes and good sensation with no neurovascular deficit. The patient will remain as an inpatient under direct observation and plastic surgery followup for wound management. We will continue the VAC supplemental closure until the wound shows good signs of healing. She most likely will require placement in a rehab facility due to the complex nature of her injury and need for close observation with multispecialty followup as well as the patient's social factors including living in third-floor walkup and living alone. She will be started on DVT prophylaxis in the form of 40 mg subcutaneous Lovenox injection starting postoperative day #1. She will receive adequate pain control. We will monitor with close neurovascular checks by all subspecialties involved. Marisol Metcalf MD [facility] # [id number]
== END 2018-02-02 14:05 | DRG 494 ==
LOC: H.ER 21:42 → H.ERHOLD 23:55 → H.PEDS 01-21 02:49 → OBSVTOIN 01-21 15:07 → H.PEDS 01-22 19:00 → H.MEDSURG1 01-23 20:27
PROVIDERS: ADMIT Family Medicine; ATTEND Family Medicine
PROC: B42FZZZ Computerized Tomography (CT Scan) of Right Lower Extremity Arteries (ICD-10-PCS; 2018-01-21)
PROC: 0QSJ04Z Reposition Right Fibula with Internal Fixation Device, Open Approach (ICD-10-PCS; 2018-01-23)
PROC: 0QUJ0JZ Supplement Right Fibula with Synthetic Substitute, Open Approach (ICD-10-PCS; 2018-01-23)
PROC: 0QUG0JZ Supplement Right Tibia with Synthetic Substitute, Open Approach (ICD-10-PCS; 2018-01-23)
PROC: 0QSG04Z Reposition Right Tibia with Internal Fixation Device, Open Approach (ICD-10-PCS; principal; 2018-01-23 07:45)
PROC: 3E0T3BZ Introduction of Anesthetic Agent into Peripheral Nerves and Plexi, Percutaneous Approach (ICD-10-PCS; 2018-01-23 07:45)
PROC: 3E0T33Z Introduction of Anti-inflammatory into Peripheral Nerves and Plexi, Percutaneous Approach (ICD-10-PCS; 2018-01-23 07:45)
PROC: B40FYZZ Plain Radiography of Right Lower Extremity Arteries using Other Contrast (ICD-10-PCS; 2018-01-23 07:45)
DX: S82.851A Displaced trimalleolar fracture of right lower leg, initial encounter for closed fracture (principal); S82.441A Displaced spiral fracture of shaft of right fibula, initial encounter for closed fracture; G89.18 Other acute postprocedural pain; I95.2 Hypotension due to drugs; T40.695A Adverse effect of other narcotics, initial encounter; R21 Rash and other nonspecific skin eruption; M24.08 Loose body, other site; E03.9 Hypothyroidism, unspecified; W01.0XXA Fall on same level from slipping, tripping and stumbling without subsequent striking against object, initial encounter; Y92.39 Other specified sports and athletic area as the place of occurrence of the external cause; Z85.820 Personal history of malignant melanoma of skin

== ENCOUNTER 2018-02-02 11:46 | Inpatient (IN) | payer OTHER ==
[2018-02-02 14:08] VITALS: BMI 23.1
[2018-02-02] MEDS ORDERED: Tuberculin 5 Units/0.1 ml Inj ID ONE (14:52)
[2018-02-02] MEDS ORDERED: Oxycodone/Acetaminophen 5/325 mg Tab PO PRN (14:57)
[2018-02-02] MEDS ORDERED: CEFAZOLIN SODIUM IV SCH (17:00)
[2018-02-02] MEDS ORDERED: NACL IV SCH (17:00)
[2018-02-02] MEDS: oxyCODONE 10 mg ER Tab (oxyCONTIN) PO SCH (17:08)
[2018-02-02] MEDS: ceFAZolin IV 2 gm in Dextrose 2 GM/50 ML BAG IVPB SCH (18:49)
[2018-02-03] MEDS: ceFAZolin IV 2 gm in Dextrose 2 GM/50 ML BAG IVPB SCH ×3 (04:30→17:01)
[2018-02-03] MEDS: oxyCODONE 10 mg ER Tab (oxyCONTIN) PO SCH ×2 (04:31→17:10)
[2018-02-03] MEDS: Levothyroxine 100 MCG TAB PO SCH (05:36)
[2018-02-03] MEDS: Enoxaparin 40 mg Syringe SC SCH (08:23)
--- NOTE | 2018-02-03 11:45 | CP.PCM.PN ---
Subjective - Date & Time of Evaluation Date of Evaluation: 02/03/18 Time of Evaluation: 09:00 - Subjective Subjective: Patient seen and examined with Dr. Flynn at bedside. Pain well controlled. C/o pressure at right heel due to splint. No other complaints. Objective - Vital Signs/Intake and Output Vital Signs (last 24 hours): Temp Pulse Resp BP Pulse Ox 98.7 F 64 20 111/72 99 02/03/18 08:23 02/03/18 08:23 02/03/18 08:23 02/03/18 08:23 02/03/18 08:23 - Medications Medications: Current Medications Acetaminophen (Tylenol 325mg Tab) 650 mg PO Q6 PRN PRN Reason: Pain, Mild (1-3) Last Admin: 02/03/18 10:36 Dose: 650 mg Cyclobenzaprine HCl (Flexeril) 5 mg PO Q8 PRN PRN Reason: Muscle spasm Last Admin: 02/02/18 16:19 Dose: 5 mg Diazepam (Valium) 10 mg PO Q6 PRN PRN Reason: Muscle spasm Docusate Sodium (Colace) 100 mg PO BID [facility] Last Admin: 02/03/18 08:22 Dose: 100 mg Enoxaparin Sodium (Lovenox) 40 mg SC DAILY [facility]; Protocol Last Admin: 02/03/18 08:23 Dose: 40 mg Hydrocortisone (Hydrocortisone 2.5%) 1 applic TOP BID [facility] Last Admin: 02/03/18 08:24 Dose: Not Given Hydromorphone HCl (Dilaudid) 4 mg PO Q4 PRN PRN Reason: Pain, severe (8-10) Last Admin: 02/03/18 08:22 Dose: 4 mg Cefazolin Sodium/Dextrose (Ancef Iv 2 Gm Duplex) 2 gm in 50 mls @ 50 mls/hr IVPB Q8 [facility] Last Admin: 02/03/18 08:29 Dose: 50 mls/hr Levothyroxine Sodium (Synthroid) 100 mcg PO DAILY@0630 [facility] Last Admin: 02/03/18 05:36 Dose: 100 mcg Loratadine (Claritin) 10 mg PO DAILY PRN PRN Reason: itchiness Ondansetron HCl (Zofran Inj) 4 mg IVP Q8 PRN PRN Reason: Nausea/Vomiting Oxycodone HCl (Oxycontin Extended Release Tab) 30 mg PO Q12@0500,1700 [facility] Stop: 02/05/18 17:01 Last Admin: 02/03/18 04:31 Dose: 30 mg Oxycodone/Acetaminophen (Percocet 5/325 Mg Tab) 2 tab PO Q4 PRN PRN Reason: Pain, moderate (4-7) Stop: 02/05/18 14:58 Pregabalin (Lyrica) 75 mg PO BID [facility] Last Admin: 02/03/18 08:23 Dose: 75 mg - Extremities Exam Additional comments: RLE: short leg posterior splint intact VAC intact @ 125 mmHg blister beds healing well mild diffuse foot swelling, much improved sensation intact SP/DP/TN motor intact EHL/FHL DP/PT pulses palpable comps soft NT Assessment and Plan (1) Closed fracture of distal end of right fibula and tibia Assessment & Plan: POD#11 s/p ORIF distal tibial shaft/distal fibular shaft/posterior malleolus -Dressings changed, VAC removed -Splint was reapplied with extra padding for heel -PT/OT NWB RLE -DVT ppx -ice/elevate -orthopedically stable -above d/w Dr. Metcalf in agreement Status: Acute
--- NOTE | 2018-02-03 11:55 | CP.PCM.PCO ---
Physician Communication Note - Physician Communication Note Physician Communication Note: Patient doing well in PT, less pain Assessment & Plan - Assessment and Plan (Free Text) Assessment: PE: Dressings removed. Incision to the medial and lateral right leg are intact. The edema is decreased. There is no erythema, cellulitis, or hematoma. The 2 superficial blisters are healing. One is 3 cm x 4 cm to the dorsolateral aspect of the ankle at the distal aspect of the lateral incision. The other blister is 2 cm x 2 cm to the distal aspect of the medial incision. The toes are warm, there is good cap refill under 2 sec. Leg washed with soap and water, dressing with Xeroform, 4x4 and Webril applied. Posterior splint applied with cyril wrap. Assessment: 37 year old with right tib fib fracture. Plan: Continue with Lyrica for now. No weight baring. Posterior splint reapplied until formal cast is applied. Will follow up with me after discharge.
--- NOTE | 2018-02-03 12:55 | CP.PCM.HP ---
History of Present Illness - History of Present Illness History of Present Illness: pt now seen on tcu. no complaints/distress. no f/cm n/v/d. consults from plastics nad ortho reviewed. Present on Admission - Present on Admission Any Indicators Present on Admission: No Review of Systems - Musculoskeletal Musculoskeletal: As Per HPI, Arthralgias, Muscle Cramps, Myalgias Past Patient History - Past Medical History & Family History Past Medical History?: Yes - Past Social History Smoking Status: Never Smoked - CARDIAC Hx Cardiac Disorders: No - PULMONARY Hx Respiratory Disorders: No - NEUROLOGICAL Hx Neurological Disorder: No - HEENT Hx HEENT Problems: No - RENAL Hx Chronic Kidney Disease: No - ENDOCRINE/METABOLIC Hx Hypothyroidism: Yes - HEMATOLOGICAL/ONCOLOGICAL Hx Blood Disorders: No Hx AIDS: No Hx Human Immunodeficiency Virus (HIV): No - INTEGUMENTARY Hx Dermatological Problems: Yes (malignant melanoma) - MUSCULOSKELETAL/RHEUMATOLOGICAL Hx Musculoskeletal Disorders: No Hx Falls: Yes (s/p mechanical fall at gym prior to ER visit) - GASTROINTESTINAL Hx Gastrointestinal Disorders: No - GENITOURINARY/GYNECOLOGICAL Hx Genitourinary Disorders: No - PSYCHIATRIC Hx Substance Use: No - SURGICAL HISTORY Hx Surgeries: Yes Other/Comment: wisdom teeth - ANESTHESIA Hx Anesthesia: Yes Hx Anesthesia Reactions: No Meds Allergies/Adverse Reactions: Allergies Allergy/AdvReac Type Severity Reaction Status Date / Time No Known Allergies Allergy Verified 02/02/18 14:06 Physical Exam - Constitutional Appears: Well, Non-toxic, No Acute Distress - Head Exam Head Exam: ATRAUMATIC, NORMAL INSPECTION, NORMOCEPHALIC - Eye Exam Eye Exam: EOMI, Normal appearance, PERRL Pupil Exam: NORMAL ACCOMODATION, PERRL - ENT Exam ENT Exam: Mucous Membranes Moist, Normal Exam - Neck Exam Neck exam: Positive for: Normal Inspection - Respiratory Exam Respiratory Exam: Clear to Auscultation Bilateral, NORMAL BREATHING PATTERN - Cardiovascular Exam Cardiovascular Exam: REGULAR RHYTHM, RRR, +S1, +S2 - GI/Abdominal Exam GI & Abdominal Exam: Normal Bowel Sounds, Soft. absent: Tenderness - Extremities Exam Extremities exam: Positive for: full ROM, normal capillary refill, normal inspection, pedal pulses present Additional comments: r foot less swelling, distalm pms intact, cap refill brisk. blisters noted- healing - Back Exam Back exam: NORMAL INSPECTION - Neurological Exam Neurological exam: Alert, CN II-XII Intact, Normal Gait, Oriented x3, Reflexes Normal - Psychiatric Exam Psychiatric exam: Normal Affect, Normal Mood - Skin Skin Exam: Dry, Intact, Normal Color, Warm Results - Vital Signs Recent Vital Signs: Last Vital Signs Temp 98.7 F 02/03/18 08:23 Pulse 64 02/03/18 08:23 Resp 20 02/03/18 08:23 BP 111/72 02/03/18 08:23 Pulse Ox 99 02/03/18 08:23 Assessment & Plan (1) Closed fracture of distal end of right fibula and tibia Assessment and Plan: pain control pt/ot ortho/plastics muscle relaxants ancef Status: Acute (2) DVT prophylaxis Assessment and Plan: scd nad ae hose ambulation'lovenox Status: Acute - Assessment and Plan (Free Text) Assessment: muscle spasm-flexeril constipation-colace, sennakot, lactulose Decision To Admit - Pt Status Changed To: Hospital Disposition Of: Inpatient - Admit Certification Admit to Inpatient:: After my assessment, the patient will require hospitalization for at least two midnights. This is because of the severity of symptoms shown, intensity of services needed, and/or the medical risk in this patient being treated as an outpatient. - . Bed Request Type: Transitional Care Unit Admitting Physician: Andrei Escalante
[2018-02-03] MEDS: Docusate-Senna 50 mg-8.6 mg Tab PO SCH (21:21)
[2018-02-04] MEDS: ceFAZolin IV 2 gm in Dextrose 2 GM/50 ML BAG IVPB SCH ×3 (00:30→16:29)
[2018-02-04] MEDS: Levothyroxine 100 MCG TAB PO SCH (06:04)
[2018-02-04] MEDS: oxyCODONE 10 mg ER Tab (oxyCONTIN) PO SCH ×2 (06:04→17:04)
[2018-02-04 06:48] LABS: BASO # 0.1 K/uL (0.0-0.2); BASO % 0.9 % (0.0-2.0); EOS # 0.3 K/uL (0.0-0.7); EOS % 5.7 % (0.0-4.0); HEMOGLOBIN 13.2 g/dL (12.0-16.0); LYMPH # 2.4 K/uL (1.0-4.3); LYMPH % 41.1 % (20.0-40.0); MEAN CELL VOLUME 95.7 fl (81.0-99.0); MEAN CORPUSCULAR HEMOGLOBIN 33.2 pg (27.0-31.0); MEAN CORPUSCULAR HGB CONC 34.7 g/dL (33.0-37.0); MEAN PLATELET VOLUME 7.7 fl (7.2-11.7); MONO # 0.6 K/uL (0.0-0.8); NEUT # 2.4 K/uL (1.8-7.0); NEUT % 41.3 % (50.0-75.0); RBC 3.96 Mil/uL (3.80-5.20); RED CELL DISTRIBUTION WIDTH 12.2 % (11.5-14.5); WHITE BLOOD COUNT 5.9 K/uL (4.8-10.8)
[2018-02-04 07:18] LABS: ALB/GLOB RATIO 1.3 (1.0-2.1); ALBUMIN 4.1 g/dL (3.5-5.0); ALT/SGPT 31 U/L (9-52); AST/SGOT 35 U/L (14-36); BLOOD UREA NITROGEN 14 mg/dl (7-17); CALCIUM 9.8 mg/dL (8.4-10.2); GFR NON-AFRICAN AMERICAN > 60
[2018-02-04] MEDS: Enoxaparin 40 mg Syringe SC SCH (08:40)
--- NOTE | 2018-02-04 17:00 | CP.PCM.PN ---
Subjective - Date & Time of Evaluation Date of Evaluation: 02/04/18 Time of Evaluation: 11:00 - Subjective Subjective: Patient seen and examined with Dr. Raúl High. Pain well controlled. No new complaints. Objective - Vital Signs/Intake and Output Vital Signs (last 24 hours): Temp Pulse Resp BP Pulse Ox 97.8 F 77 20 118/79 96 02/04/18 16:32 02/04/18 16:32 02/04/18 16:32 02/04/18 16:32 02/04/18 16:32 - Medications Medications: Current Medications Acetaminophen (Tylenol 325mg Tab) 650 mg PO Q6 PRN PRN Reason: Pain, Mild (1-3) Last Admin: 02/04/18 11:23 Dose: 650 mg Cyclobenzaprine HCl (Flexeril) 10 mg PO Q8 PRN PRN Reason: Muscle spasm Last Admin: 02/04/18 12:18 Dose: 10 mg Diazepam (Valium) 10 mg PO Q6 PRN PRN Reason: Muscle spasm Docusate Sodium (Colace) 100 mg PO BID [facility] Last Admin: 02/04/18 08:40 Dose: 100 mg Enoxaparin Sodium (Lovenox) 40 mg SC DAILY [facility]; Protocol Last Admin: 02/04/18 08:40 Dose: 40 mg Hydrocortisone (Hydrocortisone 2.5%) 1 applic TOP BID [facility] Last Admin: 02/04/18 16:29 Dose: Not Given Hydromorphone HCl (Dilaudid) 4 mg PO Q4 PRN PRN Reason: Pain, severe (8-10) Last Admin: 02/04/18 16:29 Dose: 4 mg Cefazolin Sodium/Dextrose (Ancef Iv 2 Gm Duplex) 2 gm in 50 mls @ 50 mls/hr IVPB Q8 [facility] Last Admin: 02/04/18 16:29 Dose: 50 mls/hr Levothyroxine Sodium (Synthroid) 100 mcg PO DAILY@0630 [facility] Last Admin: 02/04/18 06:04 Dose: 100 mcg Loratadine (Claritin) 10 mg PO DAILY PRN PRN Reason: itchiness Ondansetron HCl (Zofran Inj) 4 mg IVP Q8 PRN PRN Reason: Nausea/Vomiting Oxycodone HCl (Oxycontin Extended Release Tab) 30 mg PO Q12@0500,1700 [facility] Stop: 02/05/18 17:01 Last Admin: 02/04/18 06:04 Dose: 30 mg Oxycodone/Acetaminophen (Percocet 5/325 Mg Tab) 2 tab PO Q4 PRN PRN Reason: Pain, moderate (4-7) Stop: 02/05/18 14:58 Pregabalin (Lyrica) 75 mg PO BID [facility] Last Admin: 02/04/18 08:43 Dose: 75 mg Senna/Docusate Sodium (Senokot S 50 Mg-8.6 Mg) 1 tab PO HS [facility] Last Admin: 02/03/18 21:21 Dose: 1 tab - Labs Labs: 02/04/18 05:30 02/04/18 05:30 - Extremities Exam Additional comments: RLE: short leg posterior splint intact blister beds healing well mild diffuse foot swelling, much improved sensation intact SP/DP/TN motor intact EHL/FHL DP/PT pulses palpable comps soft NT Assessment and Plan (1) Closed fracture of distal end of right fibula and tibia Assessment & Plan: POD#12 s/p ORIF distal tibial shaft/distal fibular shaft/posterior malleolus -Dressings changed, new splint applied -PT/OT NWB RLE -DVT ppx -ice/elevate -orthopedically stable -above d/w Dr. Metcalf in agreement Status: Acute
[2018-02-04] MEDS: Docusate-Senna 50 mg-8.6 mg Tab PO SCH (21:11)
[2018-02-05] MEDS: ceFAZolin IV 2 gm in Dextrose 2 GM/50 ML BAG IVPB SCH ×3 (00:05→16:42)
[2018-02-05] MEDS: oxyCODONE 10 mg ER Tab (oxyCONTIN) PO SCH ×2 (06:01→16:46)
[2018-02-05] MEDS: Levothyroxine 100 MCG TAB PO SCH (06:02)
--- NOTE | 2018-02-05 09:00 | RAD ---
Date of service: 02/04/2018 PROCEDURE: Right Foot Radiographs. HISTORY: s/p orif COMPARISON: 01/21/2018 FINDINGS: BONES: Status post ORIF tibial and fibular fractures. No foot fracture identified. JOINTS: Normal. SOFT TISSUES: Normal. OTHER FINDINGS: None. IMPRESSION: No acute fracture.
--- NOTE | 2018-02-05 09:01 | RAD ---
Date of service: 02/04/2018 PROCEDURE: Radiographs of the right tibia and fibula. HISTORY: s/p orif COMPARISON: 01/23/2018 TECHNIQUE: Frontal and lateral views obtained. FINDINGS: BONES: Status post ORIF distal fibular diaphyseal fracture. Status post ORIF distal tibial diaphyseal fracture. Fracture fragments are in near anatomic alignment. Orthopedic hardware appears intact. No new/additional fracture identified. JOINT SPACES: Unremarkable. OTHER FINDINGS: None. IMPRESSION: ORIF tibial and fibular fractures.
--- NOTE | 2018-02-05 09:02 | RAD ---
Date of service: 02/04/2018 PROCEDURE: Right Ankle Radiographs. HISTORY: s/p orif COMPARISON: 01/23/2018 FINDINGS: BONES: Status post ORIF distal tibial and fibular diaphyseal fractures. Plate and screw fixation seen along the distal tibial and fibular metadiaphysis. Fracture fragments are in near anatomic alignment. Orthopedic hardware appears intact. JOINTS: Normal. No osteoarthritis. Ankle mortise maintained. Talar dome intact SOFT TISSUES: Normal. OTHER FINDINGS: None. IMPRESSION: Status post ORIF distal tibial and fibular fractures.
[2018-02-05] MEDS: Enoxaparin 40 mg Syringe SC SCH ×2 (09:16→12:54)
--- NOTE | 2018-02-05 09:43 | CP.PCM.PN ---
Subjective - Date & Time of Evaluation Date of Evaluation: 02/05/18 Time of Evaluation: 08:00 - Subjective Subjective: Patient seen and examined at bedside. Pain well controlled overall. Reports sharp foot pain overnight which relieved with ice and elevation. No other complaints. Objective - Vital Signs/Intake and Output Vital Signs (last 24 hours): Temp Pulse Resp BP Pulse Ox 98.1 F 67 20 108/73 96 02/05/18 08:29 02/05/18 08:29 02/05/18 08:29 02/05/18 08:29 02/05/18 08:29 - Medications Medications: Current Medications Acetaminophen (Tylenol 325mg Tab) 650 mg PO Q6 PRN PRN Reason: Pain, Mild (1-3) Last Admin: 02/04/18 11:23 Dose: 650 mg Cyclobenzaprine HCl (Flexeril) 10 mg PO Q8 PRN PRN Reason: Muscle spasm Last Admin: 02/05/18 09:16 Dose: 10 mg Diazepam (Valium) 10 mg PO Q6 PRN PRN Reason: Muscle spasm Docusate Sodium (Colace) 100 mg PO BID [facility] Last Admin: 02/05/18 09:16 Dose: 100 mg Enoxaparin Sodium (Lovenox) 40 mg SC DAILY [facility]; Protocol Last Admin: 02/04/18 08:40 Dose: 40 mg Hydrocortisone (Hydrocortisone 2.5%) 1 applic TOP BID [facility] Last Admin: 02/05/18 09:17 Dose: Not Given Hydromorphone HCl (Dilaudid) 4 mg PO Q4 PRN PRN Reason: Pain, severe (8-10) Last Admin: 02/05/18 00:12 Dose: 4 mg Cefazolin Sodium/Dextrose (Ancef Iv 2 Gm Duplex) 2 gm in 50 mls @ 50 mls/hr IVPB Q8 [facility] Last Admin: 02/05/18 09:15 Dose: 50 mls/hr Levothyroxine Sodium (Synthroid) 100 mcg PO DAILY@0630 [facility] Last Admin: 02/05/18 06:02 Dose: 100 mcg Loratadine (Claritin) 10 mg PO DAILY PRN PRN Reason: itchiness Ondansetron HCl (Zofran Inj) 4 mg IVP Q8 PRN PRN Reason: Nausea/Vomiting Oxycodone HCl (Oxycontin Extended Release Tab) 30 mg PO Q12@0500,1700 [facility] Stop: 02/05/18 17:01 Last Admin: 02/05/18 06:01 Dose: 30 mg Oxycodone/Acetaminophen (Percocet 5/325 Mg Tab) 2 tab PO Q4 PRN PRN Reason: Pain, moderate (4-7) Stop: 02/05/18 14:58 Pregabalin (Lyrica) 75 mg PO BID [facility] Last Admin: 02/04/18 17:04 Dose: 75 mg Senna/Docusate Sodium (Senokot S 50 Mg-8.6 Mg) 1 tab PO HS [facility] Last Admin: 02/04/18 21:11 Dose: 1 tab - Labs Labs: 02/04/18 05:30 02/04/18 05:30 - Extremities Exam Additional comments: RLE: short leg posterior splint intact mild diffuse foot swelling sensation intact SP/DP/TN motor intact EHL/FHL DP pulses palpable comps soft NT Assessment and Plan (1) Closed fracture of distal end of right fibula and tibia Assessment & Plan: POD#13 s/p ORIF distal tibial shaft/distal fibular shaft/posterior malleolus -PT/OT NWB RLE -DVT ppx -ice/elevate -orthopedically stable -above d/w Dr. Metcalf in agreement Status: Acute Radiology Interpretation - Study type Study type:: Ultrasound (BLE venous duplex negative for DVT) - Notes: Notes:: Accession No. : [id number] Patient Name / ID : LUIS MAHER / [id number] Exam Date : 02/04/2018 15:00:21 ( Approved ) Study Comment : Sex / Age : F / 37Y Creator : Shamar Dwyer MD Dictator : Shamar Dwyer MD Chain Forming Machine Operator : Sheet Sorter : Shamar Dwyer MD Approver2 : Report Date : 02/05/2018 08:56:24 My Comment : Date of service: 02/04/2018 PROCEDURE: Radiographs of the right tibia and fibula. HISTORY: s/p orif COMPARISON: 01/23/2018 TECHNIQUE: Frontal and lateral views obtained. FINDINGS: BONES: Status post ORIF distal fibular diaphyseal fracture. Status post ORIF distal tibial diaphyseal fracture. Fracture fragments are in near anatomic alignment. Orthopedic hardware appears intact. No new/additional fracture identified. JOINT SPACES: Unremarkable. OTHER FINDINGS: None. IMPRESSION: ORIF tibial and fibular fractures. - Radiology Interpretation #2 Interpretation: Accession No. : [id number] Patient Name / ID : LUIS MAHER / [id number] Exam Date : 02/04/2018 14:56:24 ( Approved ) Study Comment : Sex / Age : F / 37Y Creator : Dictator : Shamar Dwyer MD Chain Forming Machine Operator : Sheet Sorter : Shamar Dwyer MD Approver2 : Report Date : My Comment : Date of service: 02/04/2018 PROCEDURE: Right Ankle Radiographs. HISTORY: s/p orif COMPARISON: 01/23/2018 FINDINGS: BONES: Status post ORIF distal tibial and fibular diaphyseal fractures. Plate and screw fixation seen along the distal tibial and fibular metadiaphysis. Fracture fragments are in near anatomic alignment. Orthopedic hardware appears intact. JOINTS: Normal. No osteoarthritis. Ankle mortise maintained. Talar dome intact SOFT TISSUES: Normal. OTHER FINDINGS: None. IMPRESSION: Status post ORIF distal tibial and fibular fractures. - Radiology Interpretation #3 Interpretation: Accession No. : [id number] Patient Name / ID : LUIS MAHER / [id number] Exam Date : 02/04/2018 15:03:57 ( Approved ) Study Comment : Sex / Age : F / 37Y Creator : doris betancourt Dictator : Shamar Dwyer MD Chain Forming Machine Operator : Sheet Sorter : Shamar Dwyer MD Approver2 : Report Date : 02/04/2018 15:08:59 My Comment : Date of service: 02/04/2018 PROCEDURE: Right Foot Radiographs. HISTORY: s/p orif COMPARISON: 01/21/2018 FINDINGS: BONES: Status post ORIF tibial and fibular fractures. No foot fracture identified. JOINTS: Normal. SOFT TISSUES: Normal. OTHER FINDINGS: None. IMPRESSION: No acute fracture.
--- NOTE | 2018-02-05 10:39 | CP.PCM.PN ---
Subjective - Date & Time of Evaluation Date of Evaluation: 02/05/18 Time of Evaluation: 10:37 - Subjective Subjective: pt doing well. no f/c, n/v/d. still w/ pain. had dsg changed yesterday by dr calix, wound vac dc by dr cortes. dsital pms intact, cap refill brisk Objective - Vital Signs/Intake and Output Vital Signs (last 24 hours): Temp Pulse Resp BP Pulse Ox 98.1 F 67 20 108/73 96 02/05/18 08:29 02/05/18 08:29 02/05/18 08:29 02/05/18 08:29 02/05/18 08:29 - Medications Medications: Current Medications Acetaminophen (Tylenol 325mg Tab) 650 mg PO Q6 PRN PRN Reason: Pain, Mild (1-3) Last Admin: 02/04/18 11:23 Dose: 650 mg Cyclobenzaprine HCl (Flexeril) 10 mg PO Q8 PRN PRN Reason: Muscle spasm Last Admin: 02/05/18 09:16 Dose: 10 mg Diazepam (Valium) 10 mg PO Q6 PRN PRN Reason: Muscle spasm Docusate Sodium (Colace) 100 mg PO BID [facility] Last Admin: 02/05/18 09:16 Dose: 100 mg Enoxaparin Sodium (Lovenox) 40 mg SC DAILY [facility]; Protocol Last Admin: 02/04/18 08:40 Dose: 40 mg Hydrocortisone (Hydrocortisone 2.5%) 1 applic TOP BID [facility] Last Admin: 02/05/18 09:17 Dose: Not Given Hydromorphone HCl (Dilaudid) 4 mg PO Q4 PRN PRN Reason: Pain, severe (8-10) Last Admin: 02/05/18 00:12 Dose: 4 mg Cefazolin Sodium/Dextrose (Ancef Iv 2 Gm Duplex) 2 gm in 50 mls @ 50 mls/hr IVPB Q8 [facility] Last Admin: 02/05/18 09:15 Dose: 50 mls/hr Levothyroxine Sodium (Synthroid) 100 mcg PO DAILY@0630 [facility] Last Admin: 02/05/18 06:02 Dose: 100 mcg Loratadine (Claritin) 10 mg PO DAILY PRN PRN Reason: itchiness Ondansetron HCl (Zofran Inj) 4 mg IVP Q8 PRN PRN Reason: Nausea/Vomiting Oxycodone HCl (Oxycontin Extended Release Tab) 30 mg PO Q12@0500,1700 [facility] Stop: 02/05/18 17:01 Last Admin: 02/05/18 06:01 Dose: 30 mg Oxycodone/Acetaminophen (Percocet 5/325 Mg Tab) 2 tab PO Q4 PRN PRN Reason: Pain, moderate (4-7) Stop: 02/05/18 14:58 Pregabalin (Lyrica) 75 mg PO BID [facility] Last Admin: 02/05/18 09:48 Dose: 75 mg Senna/Docusate Sodium (Senokot S 50 Mg-8.6 Mg) 1 tab PO HS [facility] Last Admin: 02/04/18 21:11 Dose: 1 tab - Labs Labs: 02/04/18 05:30 02/04/18 05:30 - Constitutional Appears: Well, Non-toxic, No Acute Distress - Head Exam Head Exam: ATRAUMATIC, NORMAL INSPECTION, NORMOCEPHALIC - Eye Exam Eye Exam: EOMI, Normal appearance, PERRL Pupil Exam: NORMAL ACCOMODATION, PERRL - ENT Exam ENT Exam: Mucous Membranes Moist, Normal Exam - Neck Exam Neck Exam: Full ROM, Normal Inspection. absent: Lymphadenopathy - Respiratory Exam Respiratory Exam: Clear to Ausculation Bilateral, NORMAL BREATHING PATTERN - Cardiovascular Exam Cardiovascular Exam: REGULAR RHYTHM, RRR, +S1, +S2. absent: Murmur - GI/Abdominal Exam GI & Abdominal Exam: Soft, Normal Bowel Sounds. absent: Tenderness - Extremities Exam Extremities Exam: Full ROM, Normal Capillary Refill, Normal Inspection. absent: Joint Swelling, Pedal Edema Additional comments: distal pms intact, cap refill brisk. dsg c/d/i - Back Exam Back Exam: NORMAL INSPECTION - Neurological Exam Neurological Exam: Alert, Awake, CN II-XII Intact, Normal Gait, Oriented x3 - Psychiatric Exam Psychiatric exam: Normal Affect, Normal Mood - Skin Skin Exam: Dry, Intact, Normal Color, Warm Assessment and Plan (1) Closed fracture of distal end of right fibula and tibia Status: Acute (2) DVT prophylaxis Status: Acute - Assessment and Plan (Free Text) Assessment: (1) Closed fracture of distal end of right fibula and tibia Assessment and Plan: pain control pt/ot ortho/plastics muscle relaxants ancef Status: Acute (2) DVT prophylaxis Assessment and Plan: scd nad ae hose ambulation'lovenox Status: Acute muscle spasm-flexeril constipation-colace, sennakot, lactulose, fleet
[2018-02-05] MEDS: Docusate-Senna 50 mg-8.6 mg Tab PO SCH (21:51)
[2018-02-05] MEDS ORDERED: Oxycodone/Acetaminophen 5/325 mg Tab PO PRN (22:08)
[2018-02-06] MEDS: ceFAZolin IV 2 gm in Dextrose 2 GM/50 ML BAG IVPB SCH ×3 (00:39→16:56)
[2018-02-06] MEDS: oxyCODONE 10 mg ER Tab (oxyCONTIN) PO SCH ×2 (05:12→17:05)
[2018-02-06] MEDS: Levothyroxine 100 MCG TAB PO SCH (06:33)
[2018-02-06] MEDS: Enoxaparin 40 mg Syringe SC SCH (08:41)
--- NOTE | 2018-02-06 12:14 | CP.PCM.PN ---
Subjective - Date & Time of Evaluation Date of Evaluation: 02/06/18 Time of Evaluation: 12:13 - Subjective Subjective: pt doing well. pain controlled. distal pms intact. cap refill brisk. splint c/d/i for dc friday, anbx to be dc tomorrow case d/c w/ r bob who will see pt today. Objective - Vital Signs/Intake and Output Vital Signs (last 24 hours): Temp Pulse Resp BP Pulse Ox 98.5 F 63 20 105/70 94 L 02/06/18 10:27 02/06/18 10:27 02/06/18 10:27 02/06/18 10:27 02/06/18 10:27 - Medications Medications: Current Medications Acetaminophen (Tylenol 325mg Tab) 650 mg PO Q6 PRN PRN Reason: Pain, Mild (1-3) Last Admin: 02/04/18 11:23 Dose: 650 mg Cyclobenzaprine HCl (Flexeril) 10 mg PO Q8 PRN PRN Reason: Muscle spasm Last Admin: 02/06/18 08:39 Dose: 10 mg Diazepam (Valium) 10 mg PO Q6 PRN PRN Reason: Muscle spasm Docusate Sodium (Colace) 100 mg PO BID [facility] Last Admin: 02/06/18 08:39 Dose: 100 mg Enoxaparin Sodium (Lovenox) 40 mg SC DAILY [facility]; Protocol Last Admin: 02/06/18 08:41 Dose: 40 mg Hydrocortisone (Hydrocortisone 2.5%) 1 applic TOP BID [facility] Last Admin: 02/06/18 08:38 Dose: Not Given Hydromorphone HCl (Dilaudid) 4 mg PO Q4 PRN PRN Reason: Pain, severe (8-10) Last Admin: 02/06/18 09:50 Dose: 4 mg Cefazolin Sodium/Dextrose (Ancef Iv 2 Gm Duplex) 2 gm in 50 mls @ 50 mls/hr IVPB Q8 [facility] Last Admin: 02/06/18 08:39 Dose: 50 mls/hr Lactulose (Enulose) 20 gm PO Q12 PRN PRN Reason: Constipation Last Admin: 02/05/18 12:56 Dose: 20 gm Levothyroxine Sodium (Synthroid) 100 mcg PO DAILY@0630 [facility] Last Admin: 02/06/18 06:33 Dose: 100 mcg Loratadine (Claritin) 10 mg PO DAILY PRN PRN Reason: itchiness Ondansetron HCl (Zofran Inj) 4 mg IVP Q8 PRN PRN Reason: Nausea/Vomiting Oxycodone HCl (Oxycontin Extended Release Tab) 30 mg PO Q12@0500,1700 [facility] Stop: 02/09/18 05:01 Last Admin: 02/06/18 05:12 Dose: 30 mg Oxycodone/Acetaminophen (Percocet 5/325 Mg Tab) 2 tab PO Q4 PRN PRN Reason: Pain, moderate (4-7) Stop: 02/08/18 22:09 Pregabalin (Lyrica) 75 mg PO BID [facility] Last Admin: 02/06/18 10:54 Dose: 75 mg Senna/Docusate Sodium (Senokot S 50 Mg-8.6 Mg) 1 tab PO HS [facility] Last Admin: 02/05/18 21:51 Dose: 1 tab - Labs Labs: 02/04/18 05:30 02/04/18 05:30 - Constitutional Appears: Well, Non-toxic, No Acute Distress - Head Exam Head Exam: ATRAUMATIC, NORMAL INSPECTION, NORMOCEPHALIC - Eye Exam Eye Exam: EOMI, Normal appearance, PERRL Pupil Exam: NORMAL ACCOMODATION, PERRL - ENT Exam ENT Exam: Mucous Membranes Moist, Normal Exam - Neck Exam Neck Exam: Full ROM, Normal Inspection. absent: Lymphadenopathy - Respiratory Exam Respiratory Exam: Clear to Ausculation Bilateral, NORMAL BREATHING PATTERN - Cardiovascular Exam Cardiovascular Exam: REGULAR RHYTHM, RRR, +S1, +S2. absent: Murmur - GI/Abdominal Exam GI & Abdominal Exam: Soft, Normal Bowel Sounds. absent: Tenderness - Extremities Exam Extremities Exam: Full ROM, Normal Capillary Refill, Normal Inspection. absent: Joint Swelling, Pedal Edema Additional comments: distal pms intact, cap refill brisk - Back Exam Back Exam: NORMAL INSPECTION - Neurological Exam Neurological Exam: Alert, Awake, CN II-XII Intact, Normal Gait, Oriented x3 - Psychiatric Exam Psychiatric exam: Normal Affect, Normal Mood - Skin Skin Exam: Dry, Intact, Normal Color, Warm Assessment and Plan (1) Closed fracture of distal end of right fibula and tibia Status: Acute (2) DVT prophylaxis Status: Acute - Assessment and Plan (Free Text) Assessment: (1) Closed fracture of distal end of right fibula and tibia Assessment and Plan: pain control pt/ot ortho/plastics muscle relaxants ancef Status: Acute (2) DVT prophylaxis Assessment and Plan: scd nad ae hose ambulation'lovenox Status: Acute muscle spasm-flexeril constipation-colace, sennakot, lactulose, fleet
[2018-02-06] MEDS: Docusate-Senna 50 mg-8.6 mg Tab PO SCH (21:00)
[2018-02-07] MEDS: ceFAZolin IV 2 gm in Dextrose 2 GM/50 ML BAG IVPB SCH ×3 (00:54→17:02)
[2018-02-07] MEDS: oxyCODONE 10 mg ER Tab (oxyCONTIN) PO SCH ×2 (05:01→17:01)
[2018-02-07] MEDS: Levothyroxine 100 MCG TAB PO SCH (06:49)
[2018-02-07] MEDS: Enoxaparin 40 mg Syringe SC SCH (08:36)
[2018-02-07 15:49] VITALS: RESP 20
[2018-02-07] MEDS: Docusate-Senna 50 mg-8.6 mg Tab PO SCH (21:27)
[2018-02-08] MEDS: oxyCODONE 10 mg ER Tab (oxyCONTIN) PO SCH ×2 (05:30→17:04)
[2018-02-08] MEDS: Levothyroxine 100 MCG TAB PO SCH (05:31)
[2018-02-08] MEDS: Enoxaparin 40 mg Syringe SC SCH (08:30)
[2018-02-08] MEDS: Docusate-Senna 50 mg-8.6 mg Tab PO SCH (21:26)
[2018-02-09] MEDS: oxyCODONE 10 mg ER Tab (oxyCONTIN) PO SCH (04:25)
[2018-02-09] MEDS: Levothyroxine 100 MCG TAB PO SCH (05:50)
[2018-02-09 08:29] VITALS: TEMP 97.8
--- NOTE | 2018-02-09 08:54 | CP.PCM.PN ---
Subjective - Date & Time of Evaluation Date of Evaluation: 02/09/18 Time of Evaluation: 08:53 - Subjective Subjective: pt doingw ell. pain controlled. no f/c n/v/d. for dc today after reeval by ortho Objective - Vital Signs/Intake and Output Vital Signs (last 24 hours): Temp Pulse Resp BP Pulse Ox 97.8 F 56 L 20 102/63 98 02/09/18 08:27 02/09/18 08:27 02/09/18 08:27 02/09/18 08:27 02/09/18 08:27 - Medications Medications: Current Medications Acetaminophen (Tylenol 325mg Tab) 650 mg PO Q6 PRN PRN Reason: Pain, Mild (1-3) Last Admin: 02/07/18 15:30 Dose: 650 mg Cyclobenzaprine HCl (Flexeril) 10 mg PO Q8 PRN PRN Reason: Muscle spasm Last Admin: 02/09/18 05:50 Dose: 10 mg Diazepam (Valium) 10 mg PO Q6 PRN PRN Reason: Muscle spasm Docusate Sodium (Colace) 100 mg PO BID [facility] Last Admin: 02/08/18 17:00 Dose: 100 mg Enoxaparin Sodium (Lovenox) 40 mg SC DAILY [facility]; Protocol Last Admin: 02/08/18 08:30 Dose: 40 mg Hydrocortisone (Hydrocortisone 2.5%) 1 applic TOP BID [facility] Last Admin: 02/08/18 17:01 Dose: Not Given Hydromorphone HCl (Dilaudid) 4 mg PO Q4 PRN PRN Reason: Pain, severe (8-10) Last Admin: 02/08/18 08:28 Dose: 4 mg Lactulose (Enulose) 20 gm PO Q12 PRN PRN Reason: Constipation Last Admin: 02/08/18 08:30 Dose: 20 gm Levothyroxine Sodium (Synthroid) 100 mcg PO DAILY@0630 [facility] Last Admin: 02/09/18 05:50 Dose: 100 mcg Loratadine (Claritin) 10 mg PO DAILY PRN PRN Reason: itchiness Ondansetron HCl (Zofran Inj) 4 mg IVP Q8 PRN PRN Reason: Nausea/Vomiting Pregabalin (Lyrica) 50 mg PO BID [facility] Last Admin: 02/08/18 17:00 Dose: 50 mg Pregabalin (Lyrica) 25 mg PO BID [facility] Last Admin: 02/08/18 17:00 Dose: 25 mg Senna/Docusate Sodium (Senokot S 50 Mg-8.6 Mg) 1 tab PO [facility] Last Admin: 02/08/18 21:26 Dose: 1 tab - Labs Labs: 02/04/18 05:30 02/04/18 05:30 - Constitutional Appears: Well, Non-toxic, No Acute Distress - Head Exam Head Exam: ATRAUMATIC, NORMAL INSPECTION, NORMOCEPHALIC - Eye Exam Eye Exam: EOMI, Normal appearance, PERRL Pupil Exam: NORMAL ACCOMODATION, PERRL - ENT Exam ENT Exam: Mucous Membranes Moist, Normal Exam - Neck Exam Neck Exam: Full ROM, Normal Inspection. absent: Lymphadenopathy - Respiratory Exam Respiratory Exam: Clear to Ausculation Bilateral, NORMAL BREATHING PATTERN - Cardiovascular Exam Cardiovascular Exam: REGULAR RHYTHM, RRR, +S1, +S2. absent: Murmur - GI/Abdominal Exam GI & Abdominal Exam: Soft, Normal Bowel Sounds. absent: Tenderness - Extremities Exam Extremities Exam: Full ROM, Normal Capillary Refill, Normal Inspection. absent: Joint Swelling, Pedal Edema Additional comments: distla pms intact, cap refill brisk - Back Exam Back Exam: NORMAL INSPECTION - Neurological Exam Neurological Exam: Alert, Awake, CN II-XII Intact, Normal Gait, Oriented x3 - Psychiatric Exam Psychiatric exam: Normal Affect, Normal Mood - Skin Skin Exam: Dry, Intact, Normal Color, Warm Assessment and Plan (1) Closed fracture of distal end of right fibula and tibia Status: Acute (2) DVT prophylaxis Status: Acute - Assessment and Plan (Free Text) Assessment: (1) Closed fracture of distal end of right fibula and tibia Assessment and Plan: pain control pt/ot ortho/plastics muscle relaxants for dc after reeval by ortho Status: Acute (2) DVT prophylaxis Assessment and Plan: scd nad ae hose ambulation' lovenox Status: Acute muscle spasm-flexeril constipation-colace, sennakot, lactulose, fleet
[2018-02-09] MEDS: Enoxaparin 40 mg Syringe SC SCH (08:58)
[2018-02-09] MEDS ORDERED: Chlorhexidine Gluconate 1 APPL/PKT TP ONE (09:22)
[2018-02-09] MEDS ORDERED: Chlorhexidine Gluconate 2OZ GEL TP ONE (09:25)
--- NOTE | 2018-02-09 10:26 | CP.PCM.PN ---
Subjective - Date & Time of Evaluation Date of Evaluation: 02/09/18 Time of Evaluation: 10:25 - Subjective Subjective: Patient states pain is improved with medication. Denies CP/SOB/dizziness. Objective - Vital Signs/Intake and Output Vital Signs (last 24 hours): Temp Pulse Resp BP Pulse Ox 97.8 F 56 L 20 102/63 98 02/09/18 08:27 02/09/18 08:27 02/09/18 08:27 02/09/18 08:27 02/09/18 08:27 - Medications Medications: Current Medications Acetaminophen (Tylenol 325mg Tab) 650 mg PO Q6 PRN PRN Reason: Pain, Mild (1-3) Last Admin: 02/07/18 15:30 Dose: 650 mg Cyclobenzaprine HCl (Flexeril) 10 mg PO Q8 PRN PRN Reason: Muscle spasm Last Admin: 02/09/18 05:50 Dose: 10 mg Diazepam (Valium) 10 mg PO Q6 PRN PRN Reason: Muscle spasm Docusate Sodium (Colace) 100 mg PO BID [facility] Last Admin: 02/09/18 08:58 Dose: 100 mg Enoxaparin Sodium (Lovenox) 40 mg SC DAILY [facility]; Protocol Last Admin: 02/09/18 08:58 Dose: 40 mg Hydrocortisone (Hydrocortisone 2.5%) 1 applic TOP BID [facility] Last Admin: 02/09/18 08:58 Dose: 1 applic Hydromorphone HCl (Dilaudid) 4 mg PO Q4 PRN PRN Reason: Pain, severe (8-10) Last Admin: 02/09/18 09:51 Dose: 4 mg Lactulose (Enulose) 20 gm PO Q12 PRN PRN Reason: Constipation Last Admin: 02/09/18 09:30 Dose: 20 gm Levothyroxine Sodium (Synthroid) 100 mcg PO DAILY@0630 [facility] Last Admin: 02/09/18 05:50 Dose: 100 mcg Loratadine (Claritin) 10 mg PO DAILY PRN PRN Reason: itchiness Ondansetron HCl (Zofran Inj) 4 mg IVP Q8 PRN PRN Reason: Nausea/Vomiting Pregabalin (Lyrica) 50 mg PO BID [facility] Last Admin: 02/09/18 08:57 Dose: 50 mg Pregabalin (Lyrica) 25 mg PO BID [facility] Last Admin: 02/09/18 08:57 Dose: 25 mg Senna/Docusate Sodium (Senokot S 50 Mg-8.6 Mg) 1 tab PO HS [facility] Last Admin: 02/08/18 21:26 Dose: 1 tab - Labs Labs: 02/04/18 05:30 02/04/18 05:30 - Extremities Exam Additional comments: dressing changed. Noted eschar to anterior distal tibial wound, small amount serous drainage. No erythema. +DP/PT pulses, +_ROM toes, ankle. Sensation intact. Assessment and Plan (1) Closed fracture of distal end of right fibula and tibia Assessment & Plan: well padded short leg case applied NWB f/u in office 02/16 Dr. Chester d/w Dr. Chester regarding wound appearance, ok for d/c bactrim DS x 2 weeks, colace, pt given lactulose now no BM 4 days pain medication as per Mr. Garg for d/c Status: Acute
[2018-02-09] MEDS ORDERED: Docusate-Senna 50 mg-8.6 mg Tab PO ONE (10:55)
[2018-02-09 15:13] VITALS: BP 115/76; PULSE 78; O2SAT 95
--- NOTE | 2018-02-11 10:07 | CP.PCM.DIS ---
Provider - Provider Date of Admission: 02/02/18 14:22 Attending physician: Andrei Escalante MD Consults: 02/02/18 15:04 Orthopedic Consult Routine Comment: Consulting Provider: Marisol Kowalski Consulting Physician: Marisol Kowalski Reason for Consult: f/u consult; s/p ORIF right tibia, fibula 02/02/18 15:05 Plastic Surgery Consult Routine Comment: Consulting Provider: Carol Flynn V Consulting Physician: Carol Flynn V Reason for Consult: f/u consult; s/p right ORIF tibia, fibula Time Spent in preparation of Discharge (in minutes): 15 Diagnosis - Discharge Diagnosis (1) Closed fracture of distal end of right fibula and tibia Status: Acute (2) DVT prophylaxis Status: Acute Hospital Course - Lab Results Lab Results: Most Recent Lab Values WBC 5.9 K/uL (4.8-10.8) 02/04/18 05:30 RBC 3.96 Mil/uL (3.80-5.20) 02/04/18 05:30 Hgb 13.2 g/dL (12.0-16.0) 02/04/18 05:30 Hct 37.9 % (34.0-47.0) 02/04/18 05:30 MCV 95.7 fl (81.0-99.0) 02/04/18 05:30 MCH 33.2 pg (27.0-31.0) H 02/04/18 05:30 MCHC 34.7 g/dL (33.0-37.0) 02/04/18 05:30 RDW 12.2 % (11.5-14.5) 02/04/18 05:30 Plt Count 464 K/uL (130-400) H 02/04/18 05:30 MPV 7.7 fl (7.2-11.7) 02/04/18 05:30 Neut % (Auto) 41.3 % (50.0-75.0) L 02/04/18 05:30 Lymph % (Auto) 41.1 % (20.0-40.0) H 02/04/18 05:30 [place] % (Auto) 11.0 % (0.0-10.0) H 02/04/18 05:30 Eos % (Auto) 5.7 % (0.0-4.0) H 02/04/18 05:30 Baso % (Auto) 0.9 % (0.0-2.0) 02/04/18 05:30 Neut # (Auto) 2.4 K/uL (1.8-7.0) 02/04/18 05:30 Lymph # (Auto) 2.4 K/uL (1.0-4.3) 02/04/18 05:30 [place] # (Auto) 0.6 K/uL (0.0-0.8) 02/04/18 05:30 Eos # (Auto) 0.3 K/uL (0.0-0.7) 02/04/18 05:30 Baso # (Auto) 0.1 K/uL (0.0-0.2) 02/04/18 05:30 Sodium 139 mmol/l (132-148) 02/04/18 05:30 Potassium 4.2 MMOL/L (3.6-5.0) 02/04/18 05:30 Chloride 104 mmol/L (98-107) 02/04/18 05:30 Carbon Dioxide 26 mmol/L (22-30) 02/04/18 05:30 Anion Gap 13 (10-20) 02/04/18 05:30 BUN 14 mg/dl (7-17) 02/04/18 05:30 Creatinine 0.8 mg/dl (0.7-1.2) 02/04/18 05:30 Est GFR ( Amer) > 60 02/04/18 05:30 Est GFR (Non-Af Amer) > 60 02/04/18 05:30 Random Glucose 94 mg/dL (65-105) 02/04/18 05:30 Calcium 9.8 mg/dL (8.4-10.2) 02/04/18 05:30 Phosphorus 4.5 mg/dl (2.5-4.5) 02/04/18 05:30 Magnesium 1.8 MG/DL (1.6-2.3) 02/04/18 05:30 Total Bilirubin 0.6 mg/dl (0.2-1.3) 02/04/18 05:30 AST 35 U/L (14-36) 02/04/18 05:30 ALT 31 U/L (9-52) 02/04/18 05:30 Alkaline Phosphatase 45 U/L (38-126) 02/04/18 05:30 Total Protein 7.3 G/DL (6.3-8.2) 02/04/18 05:30 Albumin 4.1 g/dL (3.5-5.0) 02/04/18 05:30 Globulin 3.2 gm/dL (2.2-3.9) 02/04/18 05:30 Albumin/Globulin Ratio 1.3 (1.0-2.1) 02/04/18 05:30 25-OH Vitamin D Total 32.5 NG/ML (30.0-100.0) 02/04/18 05:30 - Hospital Course Hospital Course: pt/ot pain control iv anbx ortho/plastics fu Discharge Exam - Head Exam Head Exam: ATRAUMATIC, NORMAL INSPECTION, NORMOCEPHALIC Discharge Plan - Discharge Medications Prescriptions: Aspirin 325 mg PO Q12H #60 tab Cyclobenzaprine [Flexeril] 10 mg PO Q8 PRN #30 tab PRN Reason: Muscle Spasm Docusate [Colace] 100 mg PO BID #30 cap HYDROmorphone [Dilaudid] 4 mg PO Q4 PRN #20 tab PRN Reason: Pain, Severe (8-10) Methylnaltrexone [place] [Relistor] 450 mg PO DAILY #21 tablet oxyCODONE [oxyCONTIN Extended Release Tab] 30 mg PO Q12@0500,1700 #10 tab oxyCODONE/Acetaminophen [Percocet 5/325 mg Tab] 2 tab PO Q4 PRN #20 tab PRN Reason: Pain, Moderate (4-7) Pregabalin [Lyrica] 75 mg PO BID #20 cap Sulfamethoxazole/Trimethoprim [Bactrim DS 800 mg-160 mg] 1 tab PO BID #28 tab - Follow Up Plan Condition: GOOD Disposition: HOME/ ROUTINE Instructions: Preventing Falls in the Older Adult, Tibial Plateau Fracture (DC), Open Reduction and Internal Fixation Surgery (DC) Additional Instructions: Follow up with primary within one week and MD Raúl High February 16 at 130PM. final dx-tib fix fx,s/p orif, constipation f/u outpt rmg, repeat labs titrate narcotics
== END 2018-02-09 16:34 | disposition home or self-care (01) | DRG 561 ==
LOC: H.TCU 14:22
PROVIDERS: ADMIT Family Medicine; ATTEND Family Medicine
PROC: F07Z9FZ Gait Training/Functional Ambulation Treatment using Assistive, Adaptive, Supportive or Protective Equipment (ICD-10-PCS; principal; 2018-02-02)
PROC: F08Z4FZ Home Management Treatment using Assistive, Adaptive, Supportive or Protective Equipment (ICD-10-PCS; 2018-02-02)
PROC: F07L6FZ Therapeutic Exercise Treatment of Musculoskeletal System - Lower Back / Lower Extremity using Assistive, Adaptive, Supportive or Protective Equipment (ICD-10-PCS; 2018-02-03)
DX: S82.391D Other fracture of lower end of right tibia, subsequent encounter for closed fracture with routine healing (principal); S82.491D Other fracture of shaft of right fibula, subsequent encounter for closed fracture with routine healing; E03.9 Hypothyroidism, unspecified; K59.00 Constipation, unspecified; M62.838 Other muscle spasm; Z98.890 Other specified postprocedural states; Z85.820 Personal history of malignant melanoma of skin; W19.XXXD Unspecified fall, subsequent encounter